=== PATIENT | female | born 1980 | race Two or more races ===

== ENCOUNTER 2024-02-09 15:26 | Emergency (ER) | payer MEDICAID, SELFPAY ==
[2024-02-09 16:04] VITALS: BP 159/94; PULSE 72; RESP 19; TEMP 36.9; O2SAT 95; BMI 53.5
--- NOTE | 2024-02-09 16:12 | XR_ITS ---
Examination: CT brain head without contrast. 2-D sagittal coronal reconstructions Date and time of exam:February 09, 2024 1633 hrs. Indications: Patient fell today with injury to the head, head pain CTDI: vol (mGy):54.4 DLP: (mGycm):1039 Technique: Multiple CT axial sections of the brain have been obtained, 5 mm slice thickness. Contrast has not been administered. 2-D sagittal, coronal reconstructions have been obtained Low dose protocols were performed. One or more of the following dose reduction techniques were used; automated exposure control, adjustment of the mA and/or KV according to patient size, use of iterative reconstruction technique. Findings: No significant ventricular enlargement. Intra-axial or extra-axial hemorrhage density is not seen. No mass effect or midline shift Basal cisterns are not remarkable. Fourth ventricle is midline. Cranial vault intact. Impression: Negative for acute hemorrhage, mass effect or midline shift
--- NOTE | 2024-02-09 16:12 | XR_ITS ---
Examination: CT cervical spine without contrast 2-D sagittal reconstructions 2-D coronal reconstructions 3-D reconstructions. Exam date and time:February 19, 2024 at 1633 hrs. Comparison November 29, 2023 Indications: Patient fell today with injury to the neck, neck pain CTDI:vol (mGy) 10.1 DLP: (mGycm) 199 Technique: Multiple 2 mm axial sections of the cervical spine have been obtained. The coronal and sagittal reconstructions have been obtained. 3-D reconstructions have been obtained. Low dose protocols were performed. One or more of the following dose reduction techniques were used; automated exposure control, adjustment of the mA and/or KV according to patient size, use of iterative reconstruction technique. Findings: Axial sections demonstrate intact base of the skull. C1 exhibit satisfactory relationship to the odontoid. No acute cervical vertebral body fracture seen. Alignment posterior spinous processes satisfactory. Impression: No acute cervical fracture.
--- NOTE | 2024-02-09 16:14 | PD.EDRME ---
Rapid Medical Screening Exam E Arrival date/time: 02/09/24 15:26 43-year-old female past medical history of hypertension presents emergency department complaining of head and neck pain status post ground-level fall with no LOC. Patient also reported 2 episodes of vomiting blood after fall. Patient denies any blood thinner use. Chief Complaint: Head Injury Time Seen by Provider: 02/09/24 16:10 Vital signs: Vital Signs Temperature 98.4 F 02/09/24 16:04 Pulse Rate 72 02/09/24 16:04 Respiratory Rate 19 02/09/24 16:04 Blood Pressure 159/94 H 02/09/24 16:04 Pulse Oximetry (%) 95 02/09/24 16:04 Oxygen Delivery Method Room Air 02/09/24 16:04
[2024-02-09 16:37] LABS: Basophils # (Auto) 0.1 Thou/mm3 (0.0-0.2); Basophils % (Auto) 0 % (0-2.5); Eosinophils # (Auto) 0.2 Thou/mm3 (0.0-0.5); Eosinophils % (Auto) 2 % (0-10); Hematocrit 38.1 % (36.0-46.0); Hemoglobin 12.3 g/dL (12.0-16.0); Immature Granulocytes % (Auto) 0 % (0-0); Immature Granulocytes Auto 0.03 Thou/mm3 (0.00-0.00); Lymphocytes # (Auto) 3.5 Thou/mm3 (1.0-4.8); Lymphocytes % (Auto) 29 % (10-50); Mean Corpuscular HGB Conc 32.3 g/dl (31.0-37.0); Mean Corpuscular Hemoglobin 24.6 pg (25.0-35.0); Mean Corpuscular Volume 76 fL (80-100); Monocytes # (Auto) 0.6 Thou/mm3 (0.0-0.8); Monocytes % (Auto) 5 % (0-12); Neutrophils # (Auto) 7.5 Thou/mm3 (1.8-7.7); Neutrophils % (Auto) 63 % (37-80); Nucleated Red Blood Cell % 0 /100 WBC (0); Platelet Count 283 Thou/mm3 (140-440); RDW Standard Deviation 42.3 fL (36.4-46.3); Red Blood Count 4.99 Miln/mm3 (4.00-5.20); White Blood Count 11.9 Thou/mm3 (3.6-11.0)
[2024-02-09 16:56] LABS: Partial Thromboplastin Time 24.6 Seconds (22.0-36.0); Prothrombin Time 11.3 Seconds (9.0-12.2)
[2024-02-09 17:06] LABS: Alanine Aminotransferase 66 U/L (10-49); Albumin, Serum 4.2 gm/dL (3.5-5.0); Albumin/Globulin Ratio 1.4 (1.2-2.2); Alkaline Phosphatase 136 U/L (46-116); Anion Gap 3 (7-16); Aspartate Amino Transferase 43 U/L (0-34); BUN/Creatinine Ratio 20 Ratio (12-20); Bilirubin,Total 0.3 mg/dL (0.3-1.2); Blood Urea Nitrogen 14 mg/dL (9-23); Calcium 9.5 mg/dL (8.3-10.6); Calcium (Corrected) 9.5 mg/dL (8.5-10.1); Carbon Dioxide 31.9 mMol/L (20.0-31.0); Chloride 102 mMol/L (98-107); Creatinine (Component) 0.7 mg/dL (0.6-1.3); Estimated Creatinine Clearance 123.4 mL/min (>60); Globulin 2.9 gm/dL (2.3-3.5); Glucose 173 mg/dL (74-106); Magnesium 1.9 mg/dL (1.6-2.6); Osmolality,Calculated 278 (275-295); Potassium 3.7 mMol/L (3.4-5.1); Sodium 137 mMol/L (136-145); Total Protein 7.1 gm/dL (5.7-8.2); Troponin I < 0.020 ng/mL (0.0-0.045); eGFR > 60 See Note
[2024-02-09 18:11] LABS: Amphetamine/Methamp Scrn,U Negative (Negative); Barbiturate Screen,Urine Negative (Negative); Benzodiazepines Screen,Urine Negative (Negative); Benzoylecgonine Screen, Ur Negative (Negative); Fentanyl Screen,Urine Negative (Negative); Opiate Screen,Urine Negative (Negative); THC Screen,Urine Negative (Negative)
--- NOTE | 2024-02-09 19:41 | EDNOTE_ITS ---
ED Head Injury RME/HPI General Chief complaint: Head Injury Stated complaint: HIT HEAD NOW HAS HEADACHE/VOMITING BLOOD Time Seen by Provider: 02/09/24 16:10 Arrival date/time: 02/09/24 15:26 RME / HPI RME / HPI Narrative: 43-year-old female past medical history of hypertension presents emergency department complaining of head and neck pain status post ground-level fall with no LOC. Incident happened 930 this morning. Patient also reported 2 episodes of vomiting blood after fall. Patient denies any blood thinner use. Denies any abdominal pain. Denies any other complaints no medication was taken prior travel. Patient is ambulatory. Related Data Home Medications ?Medication ?Instructions ?Recorded ?Confirmed amlodipine 5 mg tablet 5 mg PO QDAY 01/20/23 10/12/23 omeprazole 40 mg capsule,delayed 20 mg PO QDAY 01/20/23 10/12/23 release albuterol sulfate 90 mcg/actuation 2 puff inhalation Q4H PRN 06/26/23 10/12/23 aerosol inhaler (Ventolin HFA) Shortness Of Breath Or Wheezing aspirin 81 mg chewable tablet 81 mg PO QDAY 10/02/23 10/12/23 (Aspirin Childrens) furosemide 20 mg tablet (Lasix) 20 mg PO QDAY 10/02/23 10/12/23 nitroglycerin 0.3 mg sublingual 0.3 mg buccal [id number] PRN Chest 10/02/23 10/12/23 tablet (Nitrostat) Pain acetaminophen 500 mg tablet 500 mg PO Q6H PRN Pain 10/12/23 10/12/23 insulin lispro 100 unit/mL 40 unit subcut TID 10/12/23 10/12/23 subcutaneous pen Previous Rx's ?Medication ?Instructions ?Recorded ibuprofen 800 mg tablet 800 mg PO TID PRN pain #30 tabs 02/09/24 ondansetron HCl 4 mg tablet 4 mg PO TID PRN nausea and 02/09/24 vomiting 5 days #20 tabs Allergies Allergy/AdvReac Type Severity Reaction Status Date / Time cephalexin Allergy Severe Rash Verified 11/29/23 15:30 sulfamethoxazole Allergy Severe RASH TO Verified 11/29/23 15:30 BODY trimethoprim Allergy Severe RASH TO Verified 11/29/23 15:30 BODY Penicillins Allergy Intermediate Hives Verified 11/29/23 15:30 clindamycin Allergy Verified 02/09/24 15:30 Review of Systems Review of Systems Narrative Review of Systems: Review of system reviewed and within normal limits except mentioned in HPI ED Exam Narrative Physical exam: VITAL SIGNS: Reviewed. GENERAL APPEARANCE: Alert and interactive, follows commands, no acute distress, HEAD AND FACE: Non-traumatic. ENT: PERRL, pink conjunctivitis, eyelid no trauma, Mucous membrane moist. NECK: Supple, posterior neck tenderness, no nuchal rigidity. CHEST: No tenderness, no crepitus, no paradoxical movement, no retractions. LUNGS: Clear, well ventilated, symmetric, no rales, no wheezing, no ronchi, no stridor, good breath sounds bilaterally. HEART: Regular rate, regular rhythm, no murmur, no gallops. ABDOMEN: Soft, positive bowel sounds, nondistended, no guarding, nontender, no rebound, no masses, RECTAL: Deferred. GENITAL: Deferred. NEUROLOGICAL: Gross motor function intact sensory function intact, Appropriate for age. MUSCULOSKELETAL: low back nontender, full range of motion. EXTREMITIES: Nontender, full range of motion. SKIN: Color pink, dry, no rash, no lacerations, no abrasions, no contusions. LYMPHATICS: Deferred. Course Quality Measures none Orders Category Date Time Status CT cervical spine wo con Stat Exams 02/09/24 16:[address] head/brain wo con Stat Exams 02/09/24 16:12 Completed CBC Stat Lab 02/09/24 16:29 Completed Comprehensive Metabolic Panel Stat Lab 02/09/24 16:29 Completed Drug Screen,Urine Stat Lab 02/09/24 17:47 Completed Magnesium Stat Lab 02/09/24 16:29 Completed Partial Thromboplastin Time Stat Lab 02/09/24 16:29 Completed Prothrombin Time with INR Stat Lab 02/09/24 16:29 Completed Troponin I Stat Lab 02/09/24 16:29 Completed HYDROcodone/APAP 10/325 [[place] 10/325] Med 02/09/24 19:40 Once 1 tab PO X1 ONE Ondansetron Odt [Zofran Odt] Med 02/09/24 19:40 Once 4 mg PO X1 ONE Vital Signs Vital signs: Vital Signs Temperature 98.4 F 02/09/24 16:04 Pulse Rate 72 02/09/24 16:04 Respiratory Rate 19 02/09/24 16:04 Blood Pressure 159/94 H 02/09/24 16:04 Pulse Oximetry (%) 95 02/09/24 16:04 Oxygen Delivery Method Room Air 02/09/24 16:04 Head Injury MDM Narrative MDM Narrative:: CT scan of the head came back unremarkable CT scan of the neck came back unremarkable patient's laboratory workup also came back normal I did not notice any sign of anemia. Patient was given [place] and Zofran. No recurrence of vomiting noted in the emergency room. Patient data External records reviewed:: None Clinical information provided by:: patient Social determinants that could affect healthcare access:: none Patient has the following chronic illnesses:: Obesity How is presenting disease/condition affected by chronic disease/condition?: uneffected by Evaluation data The following diagnostics were reviewed and interpreted by me:: lab results and radiology exam(s) Lab and/or radiology exams considered but not ordered:: None Interpretation Summary: Laboratory workup all came back unremarkable. CT scan of the head came back unremarkable. CT scan of the neck came back unremarkable. Medications / Prescriptions Medications or Prescriptions considered but not ordered:: None Medication administrations:: Medication Administration History Hydrocodone Bitart/Acetaminophen (Hydrocodone/[place] 10/325 Tab) 1 tab PO X1 ONE Stop: 02/09/24 19:41 Ondansetron HCl (Ondansetron Odt 4 Mg Tabrap) 4 mg PO X1 ONE; Protocol Stop: 02/09/24 19:41 [place] and Zofran Consultations Consultation(s) initiated? (list below): No Diagnosis Differential diagnosis head injury: other (Fall, neck pain, vomiting) Most likely diagnosis given after review of the tests above:: Fall, neck pain, vomiting Admission Indicated Admission indicated?: not indicated Explain why admission is indicated or not indicated:: None Admission Request Was there a request for admission?: No Disposition Plan Disposition Plan: Discharge Discharge Attestation Discharge Attestation: The patient and all family members were given an opportunity to ask questions and understood the discharge instructions. Discharge instructions specifically effects, indications for sooner follow up or return to the emergency department, and the expected course of current diagnosis. Patient condition: Stable Discharge Plan Plan Patient Disposition: HOME (Self Care) Disposition Comment: Stable Prescriptions/Referrals Prescriptions/Med Rec: New ondansetron HCl 4 mg tablet 4 mg PO TID PRN (Reason: nausea and vomiting) 5 Days Qty: 20 0RF ibuprofen 800 mg tablet 800 mg PO TID PRN (Reason: pain) Qty: 30 0RF No Action amlodipine 5 mg tablet 5 mg PO QDAY Patient Comments: take 1 tablet by mouth once daily omeprazole 40 mg capsule,delayed release(DR/EC) 20 mg PO QDAY Patient Comments: take 1 capsule by mouth 30 MINUTES PRIOR TO BREAKFAST once daily albuterol sulfate [Ventolin HFA] 90 mcg/actuation Hfa Aerosol Inhaler 2 puff INHALATION Q4H PRN (Reason: Shortness Of Breath Or Wheezing) nitroglycerin [Nitrostat] 0.3 mg Tablet, Sublingual 0.3 mg BUCCAL [id number] PRN (Reason: Chest Pain) aspirin [Aspirin Childrens] 81 mg Tablet,Chewable 81 mg PO QDAY furosemide [Lasix] 20 mg Tablet 20 mg PO QDAY acetaminophen 500 mg Tablet 500 mg PO Q6H PRN (Reason: Pain) insulin lispro 100 unit/mL Insulin Pen 40 unit SUBCUT TID Referrals: Сергей Loabto MD [Primary Care Provider] - In 1 week Problem List Clinical Impression: Fall, Neck pain, Vomiting Patient/Caregiver Discharge Instructions Discharge Activity: activity as tolerated Education Materials: ED Diet for Vomiting or ... Additional Instructions: Thank you for the opportunity for serving you today. You are stable for discharged . You are advised to: Follow-up with your PCP in 1 to 2 days Return to ED for worsening of symptoms Increase oral fluids Take medication as prescribed Print Language: Kenyan Stand Alone Forms: Kami Award Info., Patient Portal Info Letter YANDEL/MARQUIS Supervising Physician MANUEL Supervising Physician: MD Darya
[2024-02-09 19:59] VITALS: BP 159/84; PULSE 87; RESP 18; TEMP 36.8; O2SAT 97
[2024-02-09] MEDS: ONDANSETRON ODT 4 MG TABRAP PO (20:02)
[2024-02-09] MEDS: HYDROcodone/APAP 10/325 TAB PO (20:03)
== END 2024-02-09 20:12 | disposition home or self-care (01) ==
PROVIDERS: Emergency Provider Emergency Medicine; PCP Family Medicine
DX: S09.90XA Unspecified injury of head, initial encounter (principal); S19.9XXA Unspecified injury of neck, initial encounter; R11.10 Vomiting, unspecified; W18.30XA Fall on same level, unspecified, initial encounter
CPT/HCPCS: 36415; 70450; 72125; 80053; 80307; 83735; 84484; 85025; 85610; 85730; 99284; Q0162; A9270

== ENCOUNTER 2024-05-12 10:28 | Emergency (ER) | payer MEDICAID, SELFPAY ==
[2024-05-12 10:29] VITALS: BMI 55.5
--- NOTE | 2024-05-12 10:33 | EKG_ITS ---
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
[2024-05-12 10:56] VITALS: BP 168/81; PULSE 80; RESP 18; TEMP 36.8; O2SAT 99
--- NOTE | 2024-05-12 11:16 | PD.EDRME ---
Rapid Medical Screening Exam E Arrival date/time: 05/12/24 10:28 43-year-old female insulin-dependent diabetic presents to the emergency department today with complaints of generalized fatigue and elevated blood sugar Chief Complaint: General Adult/Misc Complain Vital signs: Vital Signs Temperature 98.2 F 05/12/24 10:56 Pulse Rate 80 05/12/24 10:56 Respiratory Rate 18 05/12/24 10:56 Blood Pressure 168/81 H 05/12/24 10:56 Pulse Oximetry (%) 99 05/12/24 10:56 Oxygen Delivery Method Room Air 05/12/24 10:56
[2024-05-12 11:39] LABS: Collection Type, Urine Clean Catch; WBC,Urine 0 /hpf (0-5)
[2024-05-12 11:40] LABS: Base Excess, Venous 4 (-3-3); O2 Saturation, Venous 88 % (96-97); PCO2, Venous 45 mmHg (36-56); PO2, Venous 50 mmHg (15-58); pH, Venous 7.42 (7.33-7.66)
[2024-05-12 11:44] LABS: Basophils # (Auto) 0.1 Thou/mm3 (0.0-0.2); Basophils % (Auto) 1 % (0-2.5); Eosinophils # (Auto) 0.2 Thou/mm3 (0.0-0.5); Eosinophils % (Auto) 2 % (0-10); Hemoglobin 12.5 g/dL (12.0-16.0); Immature Granulocytes % (Auto) 1 % (0-0); Immature Granulocytes Auto 0.05 Thou/mm3 (0.00-0.00); Lymphocytes # (Auto) 2.4 Thou/mm3 (1.0-4.8); Lymphocytes % (Auto) 28 % (10-50); Mean Corpuscular HGB Conc 32.1 g/dl (31.0-37.0); Mean Corpuscular Hemoglobin 24.6 pg (25.0-35.0); Mean Corpuscular Volume 77 fL (80-100); Monocytes # (Auto) 0.4 Thou/mm3 (0.0-0.8); Monocytes % (Auto) 5 % (0-12); Neutrophils # (Auto) 5.7 Thou/mm3 (1.8-7.7); Neutrophils % (Auto) 64 % (37-80); Nucleated Red Blood Cell % 0 /100 WBC (0); Platelet Count 233 Thou/mm3 (140-440); Red Blood Count 5.09 Miln/mm3 (4.00-5.20); White Blood Count 8.8 Thou/mm3 (3.6-11.0)
[2024-05-12 12:13] LABS: Alanine Aminotransferase 115 U/L (10-49); Albumin, Serum 4.2 gm/dL (3.5-5.0); Albumin/Globulin Ratio 1.4 (1.2-2.2); Alkaline Phosphatase 171 U/L (46-116); Anion Gap 7 (7-16); Aspartate Amino Transferase 75 U/L (0-34); BUN/Creatinine Ratio 14 Ratio (12-20); Bilirubin,Total 0.3 mg/dL (0.3-1.2); Blood Urea Nitrogen 11 mg/dL (9-23); Calcium 9.2 mg/dL (8.3-10.6); Calcium (Corrected) 9.2 mg/dL (8.5-10.1); Carbon Dioxide 28.7 mMol/L (20.0-31.0); Chloride 95 mMol/L (98-107); Creatinine (Component) 0.8 mg/dL (0.6-1.3); Estimated Creatinine Clearance 106.3 mL/min (>60); Globulin 2.9 gm/dL (2.3-3.5); Glucose Estimated Average 252 mg/dL (80-131); Hemoglobin A1C 10.4 % Hgb (4.8-6.0); Osmolality,Calculated 290 (275-295); Sodium 131 mMol/L (136-145); Total Protein 7.1 gm/dL (5.7-8.2); Troponin I < 0.020 ng/mL (0.0-0.045); eGFR > 60 See Note
[2024-05-12 12:19] LABS: HCG Qualitative,Urine Negative
[2024-05-12 12:26] LABS: Bacteria,Urine Rare; Bilirubin,Urine Negative (Negative); Blood,Urine Negative (Negative); Budding Yeast,Urine Present; Clarity,Urine Clear (Clear/Hazy); Color,Urine Colorless (Lt Yel-Yel); Culture Indicated,Urine Not Indicated; Glucose, Urine 4+ (Negative); Ketones,Urine Negative (Negative); Leukocyte Esterase,Urine Negative (Negative); Nitrite,Urine Negative (Negative); PH,Urine 6.5 (5.0-7.0); Protein,Urine Negative (Neg - Trace); RBC,Urine 2 /hpf (0-3); Specific Gravity,Urine 1.037 (1.001-1.035); Squamous Epithelial Cell,Urine 2 /hpf (0-5); Urobilinogen,Urine Negative mg/dL (0.0-1.0)
[2024-05-12 12:29] LABS: Glucose 610 mg/dL (74-106)
--- NOTE | 2024-05-12 14:46 | PD.EDADULT ---
ED General RME/HPI General Chief complaint: General Adult/Misc Complain Stated complaint: HIGH BLOOD SUGAR x 4 DAYS, OVER 600 Time Seen by Provider: 05/12/24 14:40 Arrival date/time: 05/12/24 10:28 43 year old female present to Emergency room with c/o of elevated blood glucose for 4 days. pt report > 600. pt report been taking her insulin and exercising the past 1 month but increase stressor and not able to sleep the past few days. SEVERITY: Symptoms are described as being severe with limitations on activities of daily living CONTEXT: The patient is unable to identify any inciting events. DURATION/TIMING: The symptoms started approximately 4 days ago and have been constant since and have been progressive getting worse. ASSOCIATED SYMPTOMS: fatigue , chest pain, nausea,vomiting (last night) MODIFYING FACTORS: The patient is unable to identify any alleviating or aggravating symptoms. PERTINENT ROS: no fevers, no cough, no pleuritic pain, no ripping or tearing sensations, denies any lower extremity edema and no unilateral swelling, no shortness of breath no nausea,diarrhea, no dizziness/headache no rash no loc/syncope episode no abd/back pain no dsyuria,urgency,frequency REVIEW OF SYSTEMS: See History of Present Illness - with the exception of those mentioned in the history of present illness, all other systems reviewed and reported as negative GENERAL: In general the patient is awake, interactive, in an emergency department gurney. HEAD/EYES/EARS/NOSE/THROAT: normo-cephalic, atraumatic, mucus membranes are moist, anicteric, palpebral conjunctiva is pink, trachea is midline. CARDIOVASCULAR: regular rate and regular rhythm, no murmurs, heart sounds are not distant, strong pulses in all four extremities that are equal and symmetric bilateral upper and lower extremities, normal capillary refill. CHEST/PULMONARY: normal chest rise and fall, good air movement, clear to auscultation bilaterally, normal inspiratory to expiratory ratios without evidence of respiratory distress. NECK: No midline/Paraspinal tenderness, no step off ROM/Strenght intact No Kernig and bruzinski sign. No trauma ABDOMEN: soft, not tender, no masses appreciated BACK: normal range of motion without pain. NEUROLOGICAL: cranio-facial features are symmetric, moves all four extremities equally without obvious limitations or weakness. EXTREMITY: no tenderness to palpation over the long bones or large joints of the bilateral upper and lower extremities, no joint swelling, no joint erythema, no signs of trauma, no unilateral leg swelling and no peripheral edema. SKIN: warm, dry, well-perfused, no jaundice, no rash, no telangiectasias or petechia. PSYCH: calm, cooperative, no evidence of psychosis or agitation RME / HPI RME / HPI narrative: 05/12/24 10:28 43-year-old female insulin-dependent diabetic presents to the emergency department today with complaints of generalized fatigue and elevated blood sugar Related Data Home Medications ?Medication ?Instructions ?Recorded ?Confirmed amlodipine 5 mg tablet 5 mg PO QDAY 01/20/23 10/12/23 omeprazole 40 mg capsule,delayed 20 mg PO QDAY 01/20/23 10/12/23 release albuterol sulfate 90 mcg/actuation 2 puff inhalation Q4H PRN 06/26/23 10/12/23 aerosol inhaler (Ventolin HFA) Shortness Of Breath Or Wheezing aspirin 81 mg chewable tablet 81 mg PO QDAY 10/02/23 10/12/23 (Aspirin Childrens) furosemide 20 mg tablet (Lasix) 20 mg PO QDAY 10/02/23 10/12/23 nitroglycerin 0.3 mg sublingual 0.3 mg buccal [id number] PRN Chest 10/02/23 10/12/23 tablet (Nitrostat) Pain acetaminophen 500 mg tablet 500 mg PO Q6H PRN Pain 10/12/23 10/12/23 insulin lispro 100 unit/mL 40 unit subcut TID 10/12/23 10/12/23 subcutaneous pen Previous Rx's ?Medication ?Instructions ?Recorded ibuprofen 800 mg tablet 800 mg PO TID PRN pain #30 tabs 02/09/24 Allergies Allergy/AdvReac Type Severity Reaction Status Date / Time cephalexin Allergy Severe Rash Verified 05/12/24 10:32 clindamycin Allergy Severe Hives Verified 05/12/24 10:32 sulfamethoxazole Allergy Severe RASH TO Verified 05/12/24 10:32 BODY trimethoprim Allergy Severe RASH TO Verified 05/12/24 10:32 BODY Penicillins Allergy Intermediate Hives Verified 05/12/24 10:32 Course Course Course Narrative: pt is feeling better, but was told by nurse patient been drinking alot of suger drinks (sports drink) blood glucose has been trending downward while in ED. lastest was 349 Blood glucose. feels better, nurse given education on what cause elevated blood glucose. Patient?s presentation most consistent with hyperglycemic state?WITHOUT?evidence of DKA. Given Exam, History, and Workup I have low suspicion for an emergent precipitating factor of this hyperglycemic state such as atypical [place], acute abdomen, or other serious bacterial illness. Patient is Type 2 Diabetic with changes in medication regimen/adherence. Findings: Patient without AGAP or significant ketones in urine to suggest DKA Interventions: IVF bolus, insulin Re-evaluation: Patient?s serum glucose downtrended significantly with stable electrolytes and no anion gap at this time. Disposition: Discharge home with appropriate insulin regimen and prompt PCP follow up instructions. Quality Measures none Orders Category Date Time Status Bedside Influenza A&B Antigen Test NOW Care 05/12/24 15:10 Completed EKG (ED ONLY) *Do not use* NOW Care 05/12/24 10:33 Completed EKG (ED Only) Stat Exams 05/12/24 10:33 Draft A1C [Glycohemoglobin w (eAG)] Stat Lab 05/12/24 11:32 Completed Beta Hydroxybutyrate Stat Lab 05/12/24 11:32 Completed CBC Stat Lab 05/12/24 11:32 Completed Comprehensive Metabolic Panel Stat Lab 05/12/24 11:32 Completed HCG Qualitative,Urine Stat Lab 05/12/24 11:29 Completed Troponin I Stat Lab 05/12/24 11:32 Completed UA, C/S IF [Urinalysis, C/S if Indicated] Stat Lab 05/12/24 11:29 Completed VBG [Venous Blood Gas] Stat Lab 05/12/24 11:32 Completed Insulin Glargine Inj [Lantus Inj] Med 05/12/24 14:49 Discontinued 10 unit SC X1 ONE Sodium Chloride 0.9% 1000 ml [Ns] 1,000 ml Med 05/12/24 14:37 Discontinued IV 999 mls/hr Sodium Chloride 0.9% 1000 ml [Ns] 1,000 ml Med 05/12/24 15:00 Discontinued IV 999 mls/hr Sodium Chloride 0.9% 1000 ml [Ns] 1,000 ml Med 05/12/24 18:17 Discontinued IV 999 mls/hr Vital Signs Vital signs: Vital Signs Temperature 98.2 F 05/12/24 10:56 Pulse Rate 80 05/12/24 10:56 Respiratory Rate 18 05/12/24 10:56 Blood Pressure 168/81 H 05/12/24 10:56 Pulse Oximetry (%) 99 05/12/24 10:56 Oxygen Delivery Method Room Air 05/12/24 10:56 Procedures -ED EKG Interpretation #1: Date of EK05/12/24 Time of EK:48 Rate: 72 Interpretation: Reviewed by me EKG Impression: Normal sinus rhythm, No acute ST-T changes, No ectopy, No ischemic changes and Normal QRS MDM Patient data External records reviewed:: [facility] previous records Clinical information provided by:: patient Social determinants that could affect healthcare access:: none Patient has the following chronic illnesses:: DM How is presenting disease/condition affected by chronic disease/condition?: exacerbated by Evaluation data The following diagnostics were reviewed and interpreted by me:: lab results, radiology exam(s) and EKG tracing(s) Lab and/or radiology exams considered but not ordered:: none Interpretation Summary: cbc wnl beta: wnl cmp: liver enzyme elevated. BG 600 trop wnl urine no infection Medications Medications considered but not ordered:: none Medication administrations:: Medication Administration History Discontinued Medications Sodium Chloride (Ns) 1,000 mls @ 999 mls/hr IV .Q1H1M ONE Stop: 05/12/24 15:37 Last Infusion: 05/12/24 16:30 Dose: Infused Documented By: Admin: 05/12/24 15:14 Dose: 999 mls/hr Documented By: NIGHAT Sodium Chloride (Ns) 1,000 mls @ 999 mls/hr IV .Q1H1M ONE Stop: 05/12/24 16:00 Last Infusion: 05/12/24 16:30 Dose: Infused Documented By: Admin: 05/12/24 15:19 Dose: 999 mls/hr Documented By: NIGHAT Sodium Chloride (Ns) 1,000 mls @ 999 mls/hr IV .Q1H1M ONE Stop: 05/12/24 19:17 Last Admin: 05/12/24 18:50 Dose: 999 mls/hr Documented By: NIGHAT Insulin Glargine (Insulin Glargine (Lantus) 5 Unit/0.05 Ml (Per 5 Units)) 10 unit SC X1 ONE Stop: 05/12/24 14:50 Last Admin: 05/12/24 15:20 Dose: 10 unit Documented By: MP Co-signed By: TM none Consultations Consultation(s) initiated? (list below): No Diagnosis Differential Diagnosis ED Complaint MDM: dka, hyperglycemia, dehydration, mi/nstemi, kidney infection/UTI/injury Most likely diagnosis given after review of the tests above:: hyperglycemia Admission Indicated Admission indicated?: not indicated Explain why admission is indicated or not indicated:: n/a Admission Request Was there a request for admission?: No Disposition Plan Disposition Plan: Discharge Discharge Attestation Discharge Attestation: The patient and all family members were given an opportunity to ask questions and understood the discharge instructions. Discharge instructions specifically effects, indications for sooner follow up or return to the emergency department, and the expected course of current diagnosis. Patient condition: Stable Medical Decision Making Differential Diagnosis Differential Diagnosis: dka, hyperglycemia, dehydration, mi/nstemi, kidney infection/UTI/injury Lab Data 05/12/24 11:32 05/12/24 11:32 Labs: Lab Results 05/12/24 05/12/24 Range/Units 11:29 11:32 WBC 8.8 (3.6-11.0) Thou/mm3 RBC 5.09 (4.00-5.20) Miln/mm3 Hgb 12.5 (12.0-16.0) g/dL Hct 39.0 (36.0-46.0) % MCV 77 L (80-100) fL MCH 24.6 L (25.0-35.0) pg MCHC 32.1 (31.0-37.0) g/dl RDW Std Deviation 44.0 (36.4-46.3) fL Plt Count 233 (140-440) Thou/mm3 Neut % (Auto) 64 (37-80) % Lymph % (Auto) 28 (10-50) % [place] % (Auto) 5 (0-12) % Eos % (Auto) 2 (0-10) % Baso % (Auto) 1 (0-2.5) % Neut # (Auto) 5.7 (1.8-7.7) Thou/mm3 Lymph # (Auto) 2.4 (1.0-4.8) Thou/mm3 [place] # (Auto) 0.4 (0.0-0.8) Thou/mm3 Eos # (Auto) 0.2 (0.0-0.5) Thou/mm3 Baso # (Auto) 0.1 (0.0-0.2) Thou/mm3 Immature Gran # (Auto) 0.05 H (0.00-0.00) Thou/mm3 Absolute Nucleated RBC 0.00 (0.00-0.00) Thou/mm3 Immature Gran % 1 H (0-0) % Nucleated RBC % 0 (0) /100 WBC VBG pH 7.42 (7.33-7.66) VBG pCO2 45 (36-56) mmHg VBG pO2 50 (15-58) mmHg VBG O2 Sat (Vesta) 88 L (96-97) % VBG Base Excess 4 H (-3-3) Sodium 131 L (136-145) mMol/L Potassium 4.0 (3.4-5.1) mMol/L Chloride 95 L (98-107) mMol/L Carbon Dioxide 28.7 (20.0-31.0) mMol/L Anion Gap 7 (7-16) BUN 11 (9-23) mg/dL Creatinine 0.8 (0.6-1.3) mg/dL Estim Creat Clear Calc 106.3 (>60) mL/min eGFR > 60 (60 - ) See Note BUN/Creatinine Ratio 14 (12-20) Ratio Glucose 610 H* (74-106) mg/dL Estimated Ave Glu mg/dL 252 H (80-131) mg/dL Hemoglobin A1c 10.4 H (4.8-6.0) % Hgb Calculated Osmolality 290 (275-295) Calcium 9.2 (8.3-10.6) mg/dL Corrected Calcium 9.2 (8.5-10.1) mg/dL Total Bilirubin 0.3 (0.3-1.2) mg/dL AST 75 H (0-34) U/L ALT 115 H (10-49) U/L Alkaline Phosphatase 171 H (46-116) U/L Troponin I < 0.020 (0.0-0.045) ng/mL Total Protein 7.1 (5.7-8.2) gm/dL Albumin 4.2 (3.5-5.0) gm/dL Globulin 2.9 (2.3-3.5) gm/dL Albumin/Globulin Ratio 1.4 (1.2-2.2) Beta-Hydroxybutyrate/Acetoacetate 0.0 (<0.6) mmol/L Ur Collection Type Clean Catch Urine Color Colorless A (Lt Yel-Yel) Urine Clarity Clear (Clear/Hazy) Urine pH 6.5 (5.0-7.0) Ur Specific [place] 1.037 H (1.001-1.035) Urine Protein Negative (Neg - Trace) Urine Glucose (UA) 4+ A (Negative) Urine Ketones Negative (Negative) Urine Blood Negative (Negative) Urine Nitrite Negative (Negative) Urine Bilirubin Negative (Negative) Urine Urobilinogen (Auto) Negative (0.0-1.0) mg/dL Ur Leukocyte Esterase Negative (Negative) Urine RBC 2 (0-3) /hpf Urine WBC 0 (0-5) /hpf Ur Squamous Epith Cells 2 (0-5) /hpf Urine Bacteria Rare (None) Urine Yeast (Budding) Present A (None) Ur Culture Indicated? Not Indicated Urine HCG, Qual Negative Discharge Plan Plan Patient Disposition: HOME (Self Care) Health Concerns: Follow up with PMD as directed Return to ED if symptoms worsen Prescriptions/Referrals Prescriptions/Med Rec: No Action amlodipine 5 mg tablet 5 mg PO QDAY Patient Comments: take 1 tablet by mouth once daily omeprazole 40 mg capsule,delayed release(DR/EC) 20 mg PO QDAY Patient Comments: take 1 capsule by mouth 30 MINUTES PRIOR TO BREAKFAST once daily albuterol sulfate [Ventolin HFA] 90 mcg/actuation Hfa Aerosol Inhaler 2 puff INHALATION Q4H PRN (Reason: Shortness Of Breath Or Wheezing) nitroglycerin [Nitrostat] 0.3 mg Tablet, Sublingual 0.3 mg BUCCAL [id number] PRN (Reason: Chest Pain) aspirin [Aspirin Childrens] 81 mg Tablet,Chewable 81 mg PO QDAY furosemide [Lasix] 20 mg Tablet 20 mg PO QDAY acetaminophen 500 mg Tablet 500 mg PO Q6H PRN (Reason: Pain) insulin lispro 100 unit/mL Insulin Pen 40 unit SUBCUT TID ibuprofen 800 mg tablet 800 mg PO TID PRN (Reason: pain) Qty: 30 0RF Referrals: Сергей Lobato MD [Primary Care Provider] - In 1 week Problem List Clinical Impression: Hyperglycemia Patient/Caregiver Discharge Instructions Education Materials: High Blood Sugar (Hyperglycemia), ED Diabetes with High Blood Sugar Print Language: German Stand Alone Forms: Kami Award Info., Patient Portal Info Letter
[2024-05-12] MEDS: SODIUM CHLORIDE 0.9% 1000 ML 1,000 ML 999 ML IV ×3 (15:14→18:50)
[2024-05-12] MEDS: INSULIN GLARGINE (Lantus) 5 UNIT/0.05 ML (PER 5 UNITS) 10 UNIT SC (15:20)
[2024-05-12 15:26] VITALS: BP 166/107; PULSE 73; RESP 18; O2SAT 97
[2024-05-12 18:32] VITALS: BP 166/83; PULSE 74; RESP 18; TEMP 37; O2SAT 97
== END 2024-05-12 20:27 | disposition home or self-care (01) ==
PROVIDERS: Nurse Practitioner Primary Care; Emergency Provider Emergency Medicine; PCP Family Medicine
DX: E11.65 Type 2 diabetes mellitus with hyperglycemia (principal); Z79.4 Long term (current) use of insulin
CPT/HCPCS: 36415; 80053; 81001; 81025; 82010; 82803; 83036; 84484; 85025; 87400; 93005; 96360; 96372; 99284; J1815; J7030

== ENCOUNTER 2024-06-18 11:46 | Emergency (ER) | payer MEDICAID, SELFPAY ==
--- NOTE | 2024-06-18 11:53 | EKG_ITS ---
[facility] Test Date: 2024-06-18 Pat Name: ROSALIO GARCIA Department: Room: - Gender: Female Direct Marketing Specialist: : 1980 Requested By: Channing Robles (RUTHIE) Order Number: [id number] Reading MD: Channing Robles (STRINGING MACHINE TENDER) Measurements Intervals [place] Rate: 85 P: 21 [place]: 144 QRS: -1 QRSD: 81 T: 74 QT: 361 QTc: 430 Interpretive Statements SINUS RHYTHM NONSPECIFIC T-WAVE ABNORMALITY Compared to ECG 05/12/2024 10:59:31 T-wave abnormality now present /store/S0/[id number]/ecg/[id number].pdf
[2024-06-18 12:02] VITALS: BP 163/97; PULSE 91; RESP 18; TEMP 36.9; O2SAT 99; BMI 56.5
--- NOTE | 2024-06-18 12:11 | XR_ITS ---
Examination: PA lateral chest 2 views TECHNIQUE: Upright PA lateral chest 2 views Exam date and time: June 18, 2024 1231 hours INDICATIONS: Chest pain today. FINDINGS: Normal heart size Lungs are clear. The osseous structures are intact IMPRESSION: No active disease
--- NOTE | 2024-06-18 12:13 | PD.EDRME ---
Rapid Medical Screening Exam RME Arrival date/time: 06/18/24 11:46 44-year-old female with diabetes presents with concerns for elevated blood sugar patient reports that her machine at home was reading error patient reports her blood sugar monitor measures up to 600 at this time patient had an blood sugar check by fingerstick and is 587 Chief Complaint: Shortness of Breath/Dyspnea Time Seen by Provider: 06/18/24 11:53 Vital signs: Vital Signs Temperature 98.5 F 06/18/24 12:02 Pulse Rate 91 06/18/24 12:02 Respiratory Rate 18 06/18/24 12:02 Blood Pressure 163/97 H 06/18/24 12:02 Pulse Oximetry (%) 99 06/18/24 12:02 Oxygen Delivery Method Room Air 06/18/24 12:02
[2024-06-18 12:32] LABS: Base Excess, Venous 7 (-3-3); O2 Saturation, Venous 94 % (96-97); PCO2, Venous 39 mmHg (36-56); PO2, Venous 62 mmHg (15-58)
[2024-06-18 12:35] LABS: Basophils # (Auto) 0.1 Thou/mm3 (0.0-0.2); Basophils % (Auto) 1 % (0-2.5); Beta Hydroxybutyrate 0.1 mmol/L (<0.6); Eosinophils # (Auto) 0.1 Thou/mm3 (0.0-0.5); Eosinophils % (Auto) 1 % (0-10); Hematocrit 43.1 % (36.0-46.0); Immature Granulocytes % (Auto) 0 % (0-0); Immature Granulocytes Auto 0.03 Thou/mm3 (0.00-0.00); Lymphocytes # (Auto) 2.5 Thou/mm3 (1.0-4.8); Lymphocytes % (Auto) 24 % (10-50); Mean Corpuscular HGB Conc 32.5 g/dl (31.0-37.0); Mean Corpuscular Hemoglobin 24.7 pg (25.0-35.0); Mean Corpuscular Volume 76 fL (80-100); Monocytes # (Auto) 0.7 Thou/mm3 (0.0-0.8); Monocytes % (Auto) 6 % (0-12); Neutrophils # (Auto) 6.8 Thou/mm3 (1.8-7.7); Neutrophils % (Auto) 67 % (37-80); Nucleated Red Blood Cell % 0 /100 WBC (0); Platelet Count 285 Thou/mm3 (140-440); RDW Standard Deviation 42.5 fL (36.4-46.3); Red Blood Count 5.67 Miln/mm3 (4.00-5.20); White Blood Count 10.1 Thou/mm3 (3.6-11.0)
[2024-06-18 12:49] LABS: Partial Thromboplastin Time 25.6 Seconds (22.0-36.0); Prothrombin Time 11.4 Seconds (9.0-12.2)
[2024-06-18 13:01] LABS: Glucose Estimated Average 303 mg/dL (80-131); Hemoglobin A1C 12.2 % Hgb (4.8-6.0)
[2024-06-18 13:09] LABS: Collection Type, Urine Clean Catch
[2024-06-18 13:12] LABS: Alanine Aminotransferase 116 U/L (10-49); Albumin, Serum 4.5 gm/dL (3.5-5.0); Albumin/Globulin Ratio 1.4 (1.2-2.2); Alkaline Phosphatase 197 U/L (46-116); Anion Gap 11 (7-16); Aspartate Amino Transferase 68 U/L (0-34); BUN/Creatinine Ratio 8 Ratio (12-20); Bilirubin,Total 0.4 mg/dL (0.3-1.2); Blood Urea Nitrogen 8 mg/dL (9-23); Carbon Dioxide 31.3 mMol/L (20.0-31.0); Chloride 91 mMol/L (98-107); Estimated Creatinine Clearance 85.1 mL/min (>60); Globulin 3.3 gm/dL (2.3-3.5); Lipase 52 U/L (12-53); Magnesium 1.7 mg/dL (1.6-2.6); Osmolality,Calculated 291 (275-295); Potassium 3.8 mMol/L (3.4-5.1); Sodium 133 mMol/L (136-145); Total Protein 7.8 gm/dL (5.7-8.2); Troponin I < 0.020 ng/mL (0.0-0.045); eGFR > 60 See Note
[2024-06-18 13:14] LABS: Glucose 590 mg/dL (74-106)
--- NOTE | 2024-06-18 13:15 | PC.NURSE ---
CALL FROM NICHOLAS IN THE LAB FOR CRITICAL BLOOD GLUCOSE OF 590. AWARE.
[2024-06-18 13:18] LABS: B-Type Natriuretic Peptide < 20 pg/mL (0-100)
[2024-06-18 13:26] LABS: Amphetamine/Methamp Scrn,U Negative (Negative); Barbiturate Screen,Urine Negative (Negative); Benzodiazepines Screen,Urine Negative (Negative); Benzoylecgonine Screen, Ur Negative (Negative); Fentanyl Screen,Urine Negative (Negative); Opiate Screen,Urine Negative (Negative); THC Screen,Urine Negative (Negative)
[2024-06-18 13:27] LABS: HCG Qualitative,Urine Negative
[2024-06-18 13:28] LABS: Bacteria,Urine 1+; Bilirubin,Urine Negative (Negative); Blood,Urine Negative (Negative); Clarity,Urine Clear (Clear/Hazy); Color,Urine Colorless (Lt Yel-Yel); Glucose, Urine 4+ (Negative); Ketones,Urine Negative (Negative); Leukocyte Esterase,Urine Negative (Negative); Nitrite,Urine Negative (Negative); PH,Urine 6.5 (5.0-7.0); Protein,Urine Negative (Neg - Trace); RBC,Urine 17 /hpf (0-3); Specific Gravity,Urine 1.041 (1.001-1.035); Squamous Epithelial Cell,Urine 4 /hpf (0-5); Urobilinogen,Urine Negative mg/dL (0.0-1.0); WBC,Urine 1 /hpf (0-5)
[2024-06-18] MEDS: INSULIN HUM REGULAR 1 UNIT/0.01 ML (PER UNIT) 12 UNIT SC (15:44)
[2024-06-18] MEDS: ONDANSETRON ODT 4 MG TABRAP PO (15:44)
[2024-06-18 15:46] LABS: Lactate (Lactic Acid) 2.5 mMol/L (0.4-2.0)
[2024-06-18 15:48] LABS: Basophils # (Auto) 0.1 Thou/mm3 (0.0-0.2); Basophils % (Auto) 1 % (0-2.5); Eosinophils # (Auto) 0.2 Thou/mm3 (0.0-0.5); Eosinophils % (Auto) 2 % (0-10); Hematocrit 41.4 % (36.0-46.0); Hemoglobin 13.6 g/dL (12.0-16.0); Immature Granulocytes % (Auto) 0 % (0-0); Immature Granulocytes Auto 0.04 Thou/mm3 (0.00-0.00); Lymphocytes # (Auto) 2.9 Thou/mm3 (1.0-4.8); Lymphocytes % (Auto) 25 % (10-50); Mean Corpuscular HGB Conc 32.9 g/dl (31.0-37.0); Mean Corpuscular Hemoglobin 24.8 pg (25.0-35.0); Mean Corpuscular Volume 76 fL (80-100); Monocytes # (Auto) 0.9 Thou/mm3 (0.0-0.8); Monocytes % (Auto) 8 % (0-12); Neutrophils # (Auto) 7.7 Thou/mm3 (1.8-7.7); Neutrophils % (Auto) 65 % (37-80); Nucleated Red Blood Cell % 0 /100 WBC (0); Platelet Count 255 Thou/mm3 (140-440); RDW Standard Deviation 42.5 fL (36.4-46.3); Red Blood Count 5.48 Miln/mm3 (4.00-5.20); White Blood Count 11.9 Thou/mm3 (3.6-11.0)
[2024-06-18 15:49] LABS: Beta Hydroxybutyrate 0.1 mmol/L (<0.6)
[2024-06-18 15:59] LABS: Glucose Estimated Average 298 mg/dL (80-131)
[2024-06-18 16:07] LABS: Allen Test Not Performed; Base Excess 7 (-3-3); HCO3 32 mEq/L (20-26); Inspired Oxygen, FIO2 21 %; O2 Saturation 97 % (91-98); PCO2 50 mmHg (32.0-48.0); PO2 83 mmHg (83-108); Puncture Site Left Radial; pH, Arterial 7.42 (7.35-7.45)
[2024-06-18 16:20] LABS: Magnesium 1.7 mg/dL (1.6-2.6); Phosphorous 4.2 mg/dL (2.4-5.1)
[2024-06-18 17:16] LABS: Collection Type, Urine Clean Catch
[2024-06-18 17:31] LABS: Bilirubin,Urine Negative (Negative); Blood,Urine Negative (Negative); Clarity,Urine Clear (Clear/Hazy); Color,Urine Colorless (Lt Yel-Yel); Glucose, Urine 4+ (Negative); Ketones,Urine Negative (Negative); Leukocyte Esterase,Urine Negative (Negative); Nitrite,Urine Negative (Negative); PH,Urine 5.5 (5.0-7.0); Protein,Urine Negative (Neg - Trace); RBC,Urine 15 /hpf (0-3); Specific Gravity,Urine 1.041 (1.001-1.035); Squamous Epithelial Cell,Urine 2 /hpf (0-5); Urobilinogen,Urine Negative mg/dL (0.0-1.0); WBC,Urine 1 /hpf (0-5)
[2024-06-18 18:44] LABS: Reflex Lactate? Y
[2024-06-18] MEDS: RINGERS LACTATED 1000 ML 1,000 ML IV (20:22)
--- NOTE | 2024-06-18 21:53 | EDNOTE_ITS ---
ED SOB =RME/HPI General Chief Complaint: Shortness of Breath/Dyspnea Stated Complaint: BS HIGH, PT'S MACHINE READS HIGH, SOB, ABD PAIN Time Seen by Provider: 06/18/24 11:53 Source: patient Arrival date/time: 06/18/24 11:46 Mode of arrival: ambulatory Limitations: no limitations RME / HPI RME / HPI Narrative: 06/18/24 11:46 44-year-old female with diabetes presents with concerns for elevated blood sugar patient reports that her machine at home was reading error patient reports her blood sugar monitor measures up to 600 at this time patient had an blood sugar check by fingerstick and is 587. Dr. Camarena?s Main ED Evaluation: 44-year-old female with a history of T2DM presents with concerns of elevated blood glucose levels. She reports that her home glucose monitor displayed an error message, which she states occurs when readings exceed 600 mg/dL, the device?s upper limit. Upon arrival, a fingerstick blood glucose was obtained, revealing a level of 587 mg/dL. The patient denies associated symptoms such as altered mental status, nausea, vomiting, abdominal pain, or signs of infection. She is followed by [facility] but notes that her blood glucose is not regularly checked at visits nor is she given routine lab follow-ups. She reports being on a high-dose insulin regimen, taking 100 units of Basaglar BID and 60 units of Lispro BID daily. Additionally, she mentions a recent intentional weight loss of approximately 35 pounds. Related Data Home Medications ?Medication ?Instructions ?Recorded ?Confirmed amlodipine 5 mg tablet 5 mg PO QDAY 01/20/23 omeprazole 40 mg capsule,delayed 20 mg PO QDAY 3 10/12/23 release albuterol sulfate 90 mcg/actuation 2 puff inhalation Q 4H PRN 06/26/23 10/12/23 aerosol inhaler (Ventolin HFA) Shortness Of Breath Or Wheezing aspirin 81 mg chewable tablet 81 mg PO QDAY 10/02/23 0 10/12/23 (Aspirin Childrens) furosemide 20 mg tablet (Lasix) 20 mg PO QDAY 10/02/23 10/12/23 nitroglycerin 0.3 mg sublingual 0.3 mg buccal [id number] PRN Chest 10/02/23 10/12/23 tablet (Nitrostat) Pain acetaminophen 500 mg tablet 500 mg PO Q6H PRN Pain 03/2510/12/23 insulin lispro 100 unit/mL 40 unit subcut TID 10/12/23 10/12/23 subcutaneous pen Previous Rx's ?Medication ?Instructions ?Recorded ibuprofen 800 mg tablet 800 mg PO TID PRN pain #30 t abs 02/09/24 Allergies Allergy/AdvReac Type Severity Reaction Status Date / Time cephalexin Allergy Severe Rash Verified 06/18/24 11:50 clindamycin Allergy Severe Hives Verified 06/18/24 11:50 sulfamethoxazole Allergy Severe RASH TO Verified 06/18/24 11:50 BODY trimethoprim Allergy Severe RASH TO Verified 06/18/24 11:50 BODY Penicillins Allergy Intermediate Hives Verified 06/18/24 11:50 Review of Systems Review of Systems Systems Reviewed: All systems reviewed, normal except as documented Past Medical History Past Medical History NEUROLOGIC: Negative Neurological Disorders or Seizures CARDIAC: Positive Cardiac Disorders, Myocardial Infarction (2022), Coronary Carol ry Disease and Hypertension; Negative Congestive Heart Failure RESPIRATORY: Positive Asthma and Sleep Apnea; Negative Chronic Obstructive Pulmonary Disease (COPD) GASTROINTESTINAL: Positive Gastrointestinal Disorders, Gastroesophageal Reflux Disease and Obesity; Negative Hepatitis GENITOURINARY: Negative Genitourinary Disorders or Renal Disease REPRODUCTIVE: Positive Previous Pregnancies MUSCULOSKELETAL: Negative Musculoskeletal Disorders ENT: Positive Ear Infection and Deafness (Right) ENDOCRINE: Positive Endocrine Disorders and Diabetes Mellitus Type 2; Negative Diabetes Mellitus Type 1 HEMATOLOGIC: Positive Clotting Problems (DVT left leg 5 years ago); Negative Blood Disorders or Sickle Cell Disease PSYCHO/SOCIAL: Positive Depression and Anxiety OTHER HISTORY: Positive Hospitalization (surgery), Blood Transfusions, Chemotherapy (2006), Chicken Pox and Cancer (liver 2006); Negative Autoimmune Disease, Shingles, Blood Transfusion Reaction or Anesthesia Reactions Family History FAMILY HISTORY: Positive Family Respiratory Disorders, Family Cardiac Disorders, Family Cancer and Family Surgery; Negative Family Psychiatric Problems, Family Gastrointestinal Problems or Family Anesthesia Reaction Surgical History SURGICAL: Positive Angiogram (no stents, only plasty 2022), Abdominal Surgery, Hysterectomy, Tubal Ligation and Section; Negative Cardiac Surgery or Endocrine Surgery Social History SMOKING STATUS: Current every day smoker SECOND HAND EXPOSURE: Yes ED Exam General Limitations: Present no limitations General appearance: Present alert and in no apparent distress Head Head exam: Present atraumatic Eye Eye exam: Present normal appearance, PERRL and EOMI ENT ENT exam: Present normal exam, normal oropharynx and mucous membranes moist Neck Neck exam: Present normal inspection, full ROM and trachea midline Chest Chest inspection: Present normal inspection and symmetric chest wall rise Respiratory Respiratory exam: Present normal lung sounds bilaterally Cardiovascular Cardiovascular exam: Present regular rate, normal rhythm and normal heart sounds Abdominal Exam Abdominal exam: Present soft and normal bowel sounds Extremities Exam Extremities exam: Present normal inspection and full ROM Back Exam Back exam: Present normal inspection and full ROM Neurological Exam Neurological exam: Present alert, oriented X3 and CN II-XII intact Psychiatric Psychiatric exam: Present normal affect and normal mood Skin Skin exam: Present warm, dry, intact and normal color Course Course Course Narrative: CXR is ordered for determining etiology of shortness of breath. Quality Measures none Orders Category Date Time Status Bedside Blood Glucose NOW Care 06/18/24 11:53 Active Bedside Blood Glucose STAT Care 06/18/24 15:06 Active Sap Solution Manager Consultant STAT Care 06/18/24 15:06 Active EKG (ED ONLY) *Do not use* NOW Care 06/18/24 11:53 Completed Insert IV STAT Care 06/18/24 15:06 Active Intake and Output Routine Care 06/18/24 15:06 Ordered NPO NOW Care 06/18/24 15:06 Active EKG (ED Only) Stat Exams 06/18/24 11:53 Draft XR chest 2V Stat Exams 06/18/24 12:11 Completed A1C [Glycohemoglobin w (eAG)] Stat Lab 06/18/24 12:23 Completed Arterial Blood Gas Stat Lab 06/18/24 16:01 Completed B-Type Natriuretic Peptide Stat Lab 06/18/24 12:23 Completed Beta Hydroxybutyrate Stat Lab 06/18/24 12:23 Completed Beta Hydroxybutyrate Stat Lab 06/18/24 15:37 Completed Blood Culture (Lab) Stat Lab 06/18/24 15:41 Received CBC Stat Lab 06/18/24 12:23 Completed CBC Stat Lab 06/18/24 15:37 Completed Comprehensive Metabolic Panel Stat Lab 06/18/24 12:23 Completed Drug Screen,Urine Stat Lab 06/18/24 12:45 Completed Glycohemoglobin w (eAG) Stat Lab 06/18/24 15:37 Completed HCG Qualitative,Urine Stat Lab 06/18/24 12:45 Completed Lactate (Lactic Acid) Stat Lab 06/18/24 15:37 Completed Lactic Acid, 3 HR Stat Lab 06/18/24 21:33 Received Lipase Stat Lab 06/18/24 12:23 Completed Magnesium Stat Lab 06/18/24 12:23 Completed Magnesium Stat Lab 06/18/24 15:37 Completed Partial Thromboplastin Time Stat Lab 06/18/24 12:23 Completed Phosphorous Stat Lab 06/18/24 15:37 Completed Prothrombin Time with INR Stat Lab 06/18/24 12:23 Completed Troponin I Stat Lab 06/18/24 12:23 Completed Urinalysis Stat Lab 06/18/24 12:45 Completed Urinalysis Stat Lab 06/18/24 17:08 Completed VBG [Venous Blood Gas] Stat Lab 06/18/24 12:23 Completed Dextrose 50% Syr [D50w Syringe Abboject] Med 06/18/24 15:05 Discontinued 25 ml IV PRNMRX1 PRN Insulin Regular Med 06/18/24 15:04 Discontinued 12 unit SC X1 ONE Ondansetron Odt [Zofran Odt] Med 06/18/24 15:04 Discontinued 4 mg PO X1 ONE Ringers Lactated 1000 ml [Lactated Ringers] 1,000 ml Med 06/18/24 15:05 Active IV 250 mls/hr Ringers Lactated 1000 ml [Lactated Ringers] 1,000 ml Med 06/18/24 15:15 Discontinued IV Q1H Vital Signs Vital signs: Vital Signs Temperature 98.5 F 06/18/24 12:02 Pulse Rate 91 06/18/24 12:02 Respiratory Rate 18 06/18/24 12:02 Blood Pressure 163/97 H 06/18/24 12:02 Pulse Oximetry (%) 99 06/18/24 12:02 Oxygen Delivery Method Room Air 06/18/24 12:02 Shortness of Breath / Dyspnea MDM Narrative MDM Narrative:: Scribe Attestation: I, Nathalia Loredo am scribing for and in the presence of Dr. Camarena. Provider Notation: Although this document has been carefully reviewed, there may still be some phonetic and other typographical errors. These errors are purely grammatical due to imperfections in the software program and should not be construed in any way to compromise the substance of the patient's medical care during this visit. Patient data External records reviewed:: [facility] previous records Clinical information provided by:: patient Social determinants that could affect healthcare access:: none Patient has the following chronic illnesses:: see PMH How is presenting disease/condition affected by chronic disease/condition?: uneffected by Evaluation data The following diagnostics were reviewed and interpreted by me:: lab results, radiology exam(s) and EKG tracing(s) Lab and/or radiology exams considered but not ordered:: NA Interpretation Summary: Anion gap is normal pH is normal Negative serum ketones No signs of DKA The EKG, as interpreted by me, taken at 1216, shows normal sinus rhythm (NSR) with a heart rate of 85 bpm, normal axis, no ectopy, and no acute ischemic changes. Examination: PA lateral chest 2 views TECHNIQUE: Upright PA lateral chest 2 views Exam date and time: June 18, 2024 1231 hours INDICATIONS: Chest pain today. FINDINGS: Normal heart size Lungs are clear. The osseous structures are intact IMPRESSION: No active disease Dictated By: Alex Back MD Medications / Prescriptions Medications or Prescriptions considered but not ordered:: NA Medication administrations:: Medication Administration History Lactated Ringer's (Lactated Ringers) 1,000 mls @ 250 mls/hr IV .Q4H PRN PRN Reason: PER PROTOCOL Stop: 06/19/24 15:04 Discontinued Medications Dextrose (Dextrose 50%-Water Inj 50 Ml Syringe) 25 ml IV PRNMRX1 PRN PRN Reason: Blood Sugar - Low Lactated Ringer's (Lactated Ringers) 1,000 mls @ 1,000 mls/hr IV Q1H MEENU Stop: 06/18/24 17:14 Last Admin: 06/18/24 20:22 Dose: 1,000 mls/hr Documented By: EE Insulin Human Regular (Insulin Hum Regular 1 Unit/0.01 Ml (Per Unit)) 12 unit SC X1 ONE Stop: 06/18/24 15:05 Last Admin: 06/18/24 15:44 Dose: 12 unit Documented By: Co-signed By: OA Ondansetron HCl (Ondansetron Odt 4 Mg Tabrap) 4 mg PO X1 ONE; Protocol Stop: 06/18/24 15:05 Last Admin: 06/18/24 15:44 Dose: 4 mg Documented By: as above Consultations Consultation(s) initiated? (list below): No Diagnosis Shortness of Breath Differential Diagnosis: other (Hyperglycemia, DKA, Hyperosmolar state, Medication noncompliance) Most likely diagnosis given after review of the tests above:: Acute hyperglycemia Admission Indicated Admission indicated?: not indicated Admission Request Was there a request for admission?: No Disposition Plan Disposition Plan: Discharge Discharge Attestation Discharge Attestation: The patient and all family members were given an opportunity to ask questions and understood the discharge instructions. Discharge instructions specifically effects, indications for sooner follow up or return to the emergency department, and the expected course of current diagnosis. Patient condition: Stable Discharge Plan Plan Patient Disposition: HOME (Self Care) Disposition Comment: Stable for discharge home Patient condition on transfer: Stable Prescriptions/Referrals Prescriptions/Med Rec: No Action amlodipine 5 mg tablet 5 mg PO QDAY Patient Comments: take 1 tablet by mouth once daily omeprazole 40 mg capsule,delayed release(DR/EC) 20 mg PO QDAY Patient Comments: take 1 capsule by mouth 30 MINUTES PRIOR TO BREAKFAST once daily albuterol sulfate [Ventolin HFA] 90 mcg/actuation Hfa Aerosol Inhaler 2 puff INHALATION Q4H PRN (Reason: Shortness Of Breath Or Wheezing) nitroglycerin [Nitrostat] 0.3 mg Tablet, Sublingual 0.3 mg BUCCAL [id number] PRN (Reason: Chest Pain) aspirin [Aspirin Childrens] 81 mg Tablet,Chewable 81 mg PO QDAY furosemide [Lasix] 20 mg Tablet 20 mg PO QDAY acetaminophen 500 mg Tablet 500 mg PO Q6H PRN (Reason: Pain) insulin lispro 100 unit/mL Insulin Pen 40 unit SUBCUT TID ibuprofen 800 mg tablet 800 mg PO TID PRN (Reason: pain) Qty: 30 0RF Referrals: [facility] [Outside] - In 1 week [facility] [Outside] - In 1 week Problem List Clinical Impression: Acute hyperglycemia Patient/Caregiver Discharge Instructions Discharge Activity: activity as tolerated Education Materials: High Blood Sugar (Hyperglycemia), How to Check Your Blood Sugar, Glucose Check Steps, ED Diabetes with High Blood Sugar Additional Instructions: Today you were seen in the emergency department for hyperglycemia. Your blood sugar was about 600. You should follow-up with the [facility] or at [facility] and you should speak with your primary care doctor about your diabetes. You should ask your doctor if you are on the correct antidiabetes medications for you. You should also ask your doctor if you are on the correct dosages of medications. You should have regular blood work performed so that they can follow your blood sugar, assess for any damage from hyperglycemia, and be able to tell if they need to change or adjust your medications As always please return to the ER if you are having any worsening or any further medical problem Print Language: Martiniquais Stand Alone Forms: [employer] Award Info., Patient Portal Info Letter
[2024-06-18 21:55] LABS: Lactic Acid, 3 HR 1.8 mMol/L (0.4-2.0)
[2024-06-18] MEDS: INSULIN HUM REGULAR 1 UNIT/0.01 ML (PER UNIT) 10 UNIT IV (22:49)
[2024-06-18 23:21] VITALS: BP 142/80; PULSE 81; RESP 16; TEMP 36.8; O2SAT 98
[2024-06-19] MEDS: RINGERS LACTATED 1000 ML 1,000 ML IV (00:01)
[2024-06-19 00:48] VITALS: BP 146/67; PULSE 89; RESP 18; O2SAT 99
== END 2024-06-19 00:56 | disposition home or self-care (01) ==
PROVIDERS: Family Medicine; Nurse Practitioner Primary Care; Emergency Provider Emergency Medicine
DX: E11.65 Type 2 diabetes mellitus with hyperglycemia (principal); R07.9 Chest pain, unspecified
CPT/HCPCS: 36415; 36600; 71046; 80053; 80307; 81001; 81025; 82010; 82803; 83036; 83605; 83690; 83735; 83880; 84100; 84484; 85025; 85610; 85730; 87040; 93005; 96360; 96361; 96372; 99284; J1815; J7120; Q0162

== ENCOUNTER 2024-06-23 16:02 | Emergency (ER) | payer MEDICAID, SELFPAY ==
[2024-06-23 16:03] VITALS: BMI 54.5
[2024-06-23 16:20] VITALS: BP 178/92; PULSE 88; RESP 20; TEMP 36.9; O2SAT 95
--- NOTE | 2024-06-23 16:34 | PD.EDRME ---
Rapid Medical Screening Exam RME Arrival date/time: 06/23/24 16:02 44-year-old female with a history of type 2 diabetes presents to the emergency room with a chief complaint of a critically high blood pressure reading at home. Patient states she is on multiple diabetic medications and still unable to control her blood sugar. I have greeted and performed a focused initial assessment of this patient. A comprehensive ED assessment and evaluation of the patient, analysis of all test results, and completion of the medical decision making process will be conducted by additional ED providers. Chief Complaint: General Adult/Misc Complain Time Seen by Provider: 06/23/24 16:07 Vital signs: Vital Signs Temperature 98.4 F 06/23/24 16:20 Pulse Rate 88 06/23/24 16:20 Respiratory Rate 20 06/23/24 16:20 Blood Pressure 178/92 H 06/23/24 16:20 Pulse Oximetry (%) 95 06/23/24 16:20 Oxygen Delivery Method Room Air 06/23/24 16:20 Vital signs reviewed by provider: Yes
[2024-06-23 17:12] LABS: Basophils % (Auto) 1 % (0-2.5); Eosinophils # (Auto) 0.1 Thou/mm3 (0.0-0.5); Eosinophils % (Auto) 2 % (0-10); Hematocrit 38.3 % (36.0-46.0); Hemoglobin 12.5 g/dL (12.0-16.0); Immature Granulocytes % (Auto) 0 % (0-0); Immature Granulocytes Auto 0.03 Thou/mm3 (0.00-0.00); Lymphocytes # (Auto) 2.5 Thou/mm3 (1.0-4.8); Lymphocytes % (Auto) 28 % (10-50); Mean Corpuscular HGB Conc 32.6 g/dl (31.0-37.0); Mean Corpuscular Hemoglobin 24.9 pg (25.0-35.0); Mean Corpuscular Volume 76 fL (80-100); Monocytes # (Auto) 0.5 Thou/mm3 (0.0-0.8); Monocytes % (Auto) 6 % (0-12); Neutrophils # (Auto) 5.7 Thou/mm3 (1.8-7.7); Neutrophils % (Auto) 64 % (37-80); Nucleated Red Blood Cell % 0 /100 WBC (0); Platelet Count 234 Thou/mm3 (140-440); RDW Standard Deviation 43.9 fL (36.4-46.3); Red Blood Count 5.03 Miln/mm3 (4.00-5.20); White Blood Count 8.8 Thou/mm3 (3.6-11.0)
[2024-06-23] MEDS: ONDANSETRON ODT 4 MG TABRAP PO (17:24)
[2024-06-23 17:29] LABS: Collection Type, Urine Clean Catch; RBC,Urine 0 /hpf (0-3)
[2024-06-23 17:46] LABS: HCG Qualitative,Urine Negative
[2024-06-23 17:49] LABS: Bacteria,Urine Rare; Bilirubin,Urine Negative (Negative); Blood,Urine Negative (Negative); Budding Yeast,Urine Present; Clarity,Urine Clear (Clear/Hazy); Color,Urine Colorless (Lt Yel-Yel); Glucose, Urine 4+ (Negative); Ketones,Urine Negative (Negative); Leukocyte Esterase,Urine Negative (Negative); Nitrite,Urine Negative (Negative); PH,Urine 6.5 (5.0-7.0); Protein,Urine Negative (Neg - Trace); Specific Gravity,Urine 1.031 (1.001-1.035); Squamous Epithelial Cell,Urine 1 /hpf (0-5); Urobilinogen,Urine Negative mg/dL (0.0-1.0); WBC,Urine < 1 /hpf (0-5)
[2024-06-23 18:01] LABS: Alanine Aminotransferase 122 U/L (10-49); Albumin, Serum 3.8 gm/dL (3.5-5.0); Albumin/Globulin Ratio 1.3 (1.2-2.2); Alkaline Phosphatase 193 U/L (46-116); Anion Gap 7 (7-16); Aspartate Amino Transferase 74 U/L (0-34); BUN/Creatinine Ratio 8 Ratio (12-20); Bilirubin,Total 0.2 mg/dL (0.3-1.2); Blood Urea Nitrogen 8 mg/dL (9-23); Calcium 8.9 mg/dL (8.3-10.6); Calcium (Corrected) 9.1 mg/dL (8.5-10.1); Chloride 97 mMol/L (98-107); Estimated Creatinine Clearance 83.1 mL/min (>60); Globulin 2.9 gm/dL (2.3-3.5); Lipase 50 U/L (12-53); Osmolality,Calculated 289 (275-295); Potassium 4.1 mMol/L (3.4-5.1); Sodium 129 mMol/L (136-145); Total Protein 6.7 gm/dL (5.7-8.2); eGFR > 60 See Note
[2024-06-23 18:08] LABS: Glucose 678 mg/dL (74-106)
--- NOTE | 2024-06-23 18:08 | PC.NURSE ---
CALL FROM [facility] IN LAB WITH CRITICAL GLUCOSE OF 678. PUT IN MD NOTES.
--- NOTE | 2024-06-23 18:50 | EKG_ITS ---
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
--- NOTE | 2024-06-23 18:50 | XR_ITS ---
Examination: AP chest single view TECHNIQUE: Portable sitting AP chest single view Exam date time: June 23, 2024 1854 hours Comparison June 18, 2024 INDICATIONS: Shortness breath today. FINDINGS: Normal heart size. No lobar pneumonia or pulmonary edema The osseous structures are intact IMPRESSION: No lobar pneumonia or pulmonary edema
[2024-06-23 19:14] LABS: Troponin I < 0.020 ng/mL (0.0-0.045)
[2024-06-23 19:40] VITALS: BP 188/86; PULSE 77; RESP 20; TEMP 36.9; O2SAT 97
[2024-06-23] MEDS: SODIUM CHLORIDE 0.9% 1000 ML 1,000 ML 999 ML IV ×2 (19:43→21:11)
[2024-06-23] MEDS: INSULIN HUM REGULAR 1 UNIT/0.01 ML (PER UNIT) 10 UNIT IV ×3 (19:43→23:54)
[2024-06-23] MEDS: ONDANSETRON INJ 2 MG/ML INJ 2 ML 4 MG IV (19:43)
[2024-06-23] MEDS: MORPHINE SULF INJ 10 MG/ML VIAL 6 MG IVP (20:34)
[2024-06-23] MEDS: KETOROLAC INJ 30 MG/ML VIAL IVP (20:34)
[2024-06-23 21:17] VITALS: BP 150/82; PULSE 75; RESP 14; TEMP 36.7; O2SAT 97
--- NOTE | 2024-06-23 21:54 | PD.EDADULT ---
ED General RME/HPI General Chief complaint: General Adult/Misc Complain Stated complaint: PT'S BS OVER 600 PER METER READING ON PHONE Time Seen by Provider: 06/23/24 16:07 Arrival date/time: 06/23/24 16:02 RME / HPI RME / HPI narrative: 06/23/24 16:02 44-year-old female with a history of type 2 diabetes presents to the emergency room with a chief complaint of a critically high blood pressure reading at home. Patient states she is on multiple diabetic medications and still unable to control her blood sugar. I have greeted and performed a focused initial assessment of this patient. A comprehensive ED assessment and evaluation of the patient, analysis of all test results, and completion of the medical decision making process will be conducted by additional ED providers. This section includes all my notes and documentations, including HPI, PE, and ED course. Andres Silva MD HPI: 44-year-old female here to be evaluated with critically high blood sugar levels at home. She reports polyphagia, polydipsia, polyuria, fatigue and malaise, dry mouth, nausea, headache, dizziness, and blurry vision on and off. No other complaints. ROS: All negative except as documented in HPI. Physical Exam: General:? Alert and oriented.? Appearance of malaise noted. Eyes:? Conjunctivae and lids clear.? EOMI.? PERRL. ENT:? No nasal congestion.? Pharynx normal.? Tympanic membrane normal bilaterally.??? Neck:? Supple.? No carotid bruit.? No JVD.?? Heart:? RRR.? Lungs:? No respiratory distress.? Good air movement.? No rhonchi, wheezing, rales.?? Abdomen:? Soft and nontender.? Normal bowel sounds.? No distension.? No rebound or guarding.?? Back:? No CVA tenderness.?? Legs:? No clubbing, cyanosis, edema.? Skin:? Warm and dry.?? Neuro:? Alert and oriented X 3.? Cranial Nerves II-XII grossly intact.? No peripheral motor deficits. I reviewed all diagnostic test results. My interpretation of the EKG is sinus rhythm with no acute ST?T changes. My interpretation of the chest x-ray is no acute findings. My review of the head CT report is no acute findings, except sinusitis. Blood tests and urine tests hyperglycemia with DKA and yeast UTI. At this point, diagnoses include hyperglycemia and sinus infection. Treatment here included NS, Insulin, Toradol, Morphine, Zofran, Diflucan, and Tylenol with Codeine. Significant improvement noted. Recommended continued outpatient care. Based on my best medical judgment, made decision no further evaluation or treatment indicated at this time. Patient understands and agrees to the discharge instructions customized and printed, see below. Discharge Instructions from Dr. Silva printed for you: 1. After evaluation, you were treated for severely high sugar levels. Fortunately, there was no DKA. 2. Increase your insulin lispro to 50 units (from 40 units) 3X daily. And decrease high sugar and high carbohydrate diet. For good hydration, increase oral fluid and maintain clear urine. If dark or yellow, increase oral fluid. Zofran for nausea/vomiting. 3. Take Levaquin for the sinus infection. Tylenol with codeine for severe pain. 4. See your private doctor on 06/25/2024 for recheck and further care. Ask to review all test results and official radiology reports, to make sure you receive all necessary follow-ups and monitoring. 5. Seek immediate medical care with worsening or with any concerns. Andres Silva MD Related Data Home Medications ?Medication ?Instructions ?Recorded ?Confirmed amlodipine 5 mg tablet 5 mg PO QDAY 01/20/23 10/12/23 omeprazole 40 mg capsule,delayed 20 mg PO QDAY 01/20/23 10/12/23 release albuterol sulfate 90 mcg/actuation 2 puff inhalation Q4H PRN 06/26/23 10/12/23 aerosol inhaler (Ventolin HFA) Shortness Of Breath Or Wheezing aspirin 81 mg chewable tablet 81 mg PO QDAY 10/02/23 10/12/23 (Aspirin Childrens) furosemide 20 mg tablet (Lasix) 20 mg PO QDAY 10/02/23 10/12/23 nitroglycerin 0.3 mg sublingual 0.3 mg buccal [id number] PRN Chest 10/02/23 10/12/23 tablet (Nitrostat) Pain acetaminophen 500 mg tablet 500 mg PO Q6H PRN Pain 10/12/23 10/12/23 insulin lispro 100 unit/mL 40 unit subcut TID 10/12/23 10/12/23 subcutaneous pen Previous Rx's ?Medication ?Instructions ?Recorded ibuprofen 800 mg tablet 800 mg PO TID PRN pain #30 tabs 02/09/24 acetaminophen 300 mg-codeine 30 mg 2 tab PO Q8H PRN pain #20 tabs 06/24/24 tablet levofloxacin 500 mg tablet 500 mg PO QDAY 10 days #10 tabs 06/24/24 ondansetron 4 mg disintegrating 4 mg PO TID PRN nausea and 06/24/24 tablet vomiting 30 days #10 tabs Allergies Allergy/AdvReac Type Severity Reaction Status Date / Time cephalexin Allergy Severe Rash Verified 06/23/24 16:06 clindamycin Allergy Severe Hives Verified 06/23/24 16:06 sulfamethoxazole Allergy Severe RASH TO Verified 06/23/24 16:06 BODY trimethoprim Allergy Severe RASH TO Verified 06/23/24 16:06 BODY Penicillins Allergy Intermediate Hives Verified 06/23/24 16:06 Review of Systems Review of Systems Systems Reviewed: All systems reviewed, normal except as documented Past Medical History Past Medical History NEUROLOGIC: Negative Neurological Disorders or Seizures CARDIAC: Positive Cardiac Disorders, Myocardial Infarction (june 2023), Coronary Artery Disease and Hypertension; Negative Congestive Heart Failure RESPIRATORY: Positive Asthma and Sleep Apnea; Negative Chronic Obstructive Pulmonary Disease (COPD) GASTROINTESTINAL: Positive Gastrointestinal Disorders, Gastroesophageal Reflux Disease and Obesity; Negative Hepatitis GENITOURINARY: Negative Genitourinary Disorders or Renal Disease REPRODUCTIVE: Positive Previous Pregnancies MUSCULOSKELETAL: Negative Musculoskeletal Disorders ENT: Positive Ear Infection and Deafness ENDOCRINE: Positive Endocrine Disorders and Diabetes Mellitus Type 2; Negative Diabetes Mellitus Type 1 HEMATOLOGIC: Positive Clotting Problems; Negative Blood Disorders or Sickle Cell Disease PSYCHO/SOCIAL: Positive Depression and Anxiety OTHER HISTORY: Positive Hospitalization, Blood Transfusions, Chemotherapy, Chicken Pox and Cancer; Negative Autoimmune Disease, Shingles, Blood Transfusion Reaction or Anesthesia Reactions Family History FAMILY HISTORY: Positive Family Respiratory Disorders, Family Cardiac Disorders, Family Cancer and Family Surgery; Negative Family Psychiatric Problems, Family Gastrointestinal Problems or Family Anesthesia Reaction Surgical History SURGICAL: Positive Angiogram, Abdominal Surgery, Hysterectomy, Tubal Ligation and Section; Negative Cardiac Surgery or Endocrine Surgery Social History SMOKING STATUS: Current every day smoker SECOND HAND EXPOSURE: Yes ED Exam Narrative Physical exam: As noted in HPI. Course Course Course Narrative: CXR is ordered for determining the etiology of shortness of breath. Quality Measures none Orders Category Date Time Status Bedside COVID-19 Antigen Test NOW Care 06/23/24 18:49 Completed Bedside Influenza A&B Antigen Test NOW Care 06/23/24 18:49 Completed EKG (ED ONLY) *Do not use* NOW Care 06/23/24 18:50 Completed Fingerstick [Bedside Blood Glucose] NOW Care 06/23/24 16:33 Completed Glucose [Bedside Blood Glucose] NOW Care 06/23/24 20:25 Completed Glucose [Bedside Blood Glucose] NOW Care 06/24/24 01:13 Completed Glucose [Bedside Blood Glucose] NOW Care 06/24/24 03:32 Completed Saline [Insert IV] NOW Care 06/23/24 18:[address] head/brain wo con Stat Exams 06/24/24 02:20 Completed EKG (ED Only) Stat Exams 06/23/24 18:50 Draft XR chest 1V portable Stat Exams 06/23/24 18:50 Completed BMP [Basic Metabolic Panel] Stat Lab 06/23/24 21:52 Completed Beta Hydroxybutyrate Stat Lab 06/23/24 16:47 Completed CBC Stat Lab 06/23/24 16:47 Completed CMP [Comprehensive Metabolic Panel] Stat Lab 06/23/24 16:47 Completed HCG Qualitative,Urine Stat Lab 06/23/24 17:23 Completed Lipase Stat Lab 06/23/24 16:47 Completed Troponin I Stat Lab 06/23/24 16:47 Completed UA [Urinalysis] Stat Lab 06/23/24 17:23 Completed Urine Culture Stat Lab 06/23/24 17:23 Received ACETAMINOPHEN w/COD 300-30 [Tylenol w/Cod #3] Med 06/24/24 02:20 Discontinued 2 tab PO X1 ONE Fluconazole/Ns 200 mg Ivpb [Diflucan/Ns Ivpb] Med 06/23/24 22:20 Discontinued 200 mg in 100 ml IV X1 Insulin Regular Med 06/23/24 18:49 Discontinued 10 unit IV X1 ONE Insulin Regular Med 06/23/24 20:51 Discontinued 10 unit IV X1 ONE Insulin Regular Med 06/23/24 23:43 Discontinued 10 unit IV X1 ONE Ketorolac Inj [Toradol Inj] Med 06/23/24 20:25 Discontinued 30 mg IVP X1 ONE Morphine Inj Med 06/23/24 20:25 Discontinued 6 mg IVP X1 ONE Ondansetron Inj [Zofran Inj] Med 06/23/24 18:49 Discontinued 4 mg IV X1 ONE Ondansetron Odt [Zofran Odt] Med 06/23/24 16:33 Discontinued 4 mg PO X1 ONE Sodium Chloride 0.9% 1000 ml [Ns] 1,000 ml Med 06/23/24 18:49 Discontinued IV 999 mls/hr Sodium Chloride 0.9% 1000 ml [Ns] 1,000 ml Med 06/23/24 20:51 Discontinued IV 999 mls/hr Vital Signs Vital signs: Vital Signs Temperature 98.4 F 06/23/24 16:20 Pulse Rate 88 06/23/24 16:20 Respiratory Rate 20 06/23/24 16:20 Blood Pressure 178/92 H 06/23/24 16:20 Pulse Oximetry (%) 95 06/23/24 16:20 Oxygen Delivery Method Room Air 06/23/24 16:20 [facility] Patient data External records reviewed:: [facility] previous records (Per chart review, patient was seen here on 06/18/24 for acute hyperglycemia.) Clinical information provided by:: patient Social determinants that could affect healthcare access:: none Patient has the following chronic illnesses:: CAD, HTN, DM, asthma How is presenting disease/condition affected by chronic disease/condition?: caused by Evaluation data The following diagnostics were reviewed and interpreted by me:: lab results and radiology exam(s) Lab and/or radiology exams considered but not ordered:: none Interpretation Summary: Hyperglycemia, Sinus infection Medications Medications considered but not ordered:: none Medication administrations:: Medication Administration History Discontinued Medications Acetaminophen/Codeine Phosphate (Acetaminophen W/Cod 300-30 Tablet) 2 tab PO X1 ONE Stop: 06/24/24 02:21 Last Admin: 06/24/24 02:56 Dose: 2 tab Documented By: EF Sodium Chloride (Ns) 1,000 mls @ 999 mls/hr IV .Q1H1M ONE Stop: 06/23/24 19:49 Last Infusion: 06/23/24 20:44 Dose: Infused Documented By: Admin: 06/23/24 19:43 Dose: 999 mls/hr Documented By: EF Sodium Chloride (Ns) 1,000 mls @ 999 mls/hr IV .Q1H1M ONE Stop: 06/23/24 21:51 Last Infusion: 06/23/24 22:12 Dose: Infused Documented By: Admin: 06/23/24 21:11 Dose: 999 mls/hr Documented By: EF Fluconazole (Diflucan/Ns Ivpb) 200 mg in 100 mls @ 100 mls/hr IV X1 ONE Stop: 06/23/24 23:19 Last Infusion: 06/24/24 00:54 Dose: Infused Documented By: Admin: 06/23/24 23:54 Dose: 100 mls/hr Documented By: EF Insulin Human Regular (Insulin Hum Regular 1 Unit/0.01 Ml (Per Unit)) 10 unit IV X1 ONE Stop: 06/23/24 18:50 Last Admin: 06/23/24 19:43 Dose: 10 unit Documented By: EF Co-signed By: WO Insulin Human Regular (Insulin Hum Regular 1 Unit/0.01 Ml (Per Unit)) 10 unit IV X1 ONE Stop: 06/23/24 20:52 Last Admin: 06/23/24 21:11 Dose: 10 unit Documented By: EF Co-signed By: WO Insulin Human Regular (Insulin Hum Regular 1 Unit/0.01 Ml (Per Unit)) 10 unit IV X1 ONE Stop: 06/23/24 23:44 Last Admin: 06/23/24 23:54 Dose: 10 unit Documented By: EF Co-signed By: AC Ketorolac Tromethamine (Ketorolac Inj 30 Mg/Ml Vial) 30 mg IVP X1 ONE Stop: 06/23/24 20:26 Last Admin: 06/23/24 20:34 Dose: 30 mg Documented By: EF Morphine Sulfate (Morphine Sulf Inj 10 Mg/Ml Vial) 6 mg IVP X1 ONE Stop: 06/23/24 20:26 Last Admin: 06/23/24 20:34 Dose: 6 mg Documented By: EF Ondansetron HCl (Ondansetron Odt 4 Mg Tabrap) 4 mg PO X1 ONE; Protocol Stop: 06/23/24 16:34 Last Admin: 06/23/24 17:24 Dose: 4 mg Documented By: DB Ondansetron HCl (Ondansetron Inj 2 Mg/Ml Inj 2 Ml) 4 mg IV X1 ONE; Protocol Stop: 06/23/24 18:50 Last Admin: 06/23/24 19:43 Dose: 4 mg Documented By: EF NS, Insulin, Toradol, Morphine, Zofran, Diflucan, Tylenol with Codeine Consultations Consultation(s) initiated? (list below): No Diagnosis Differential Diagnosis ED Complaint MDM: CVA, brain tumor, ND, DKA, dehydration, electrolyte abnormalities, UTI Most likely diagnosis given after review of the tests above:: Hyperglycemia, Sinus infection Admission Indicated Admission indicated?: not indicated Explain why admission is indicated or not indicated:: With significant improvement, there was no indication for admission. Admission Request Was there a request for admission?: No Disposition Plan Disposition Plan: Discharge Discharge Attestation Discharge Attestation: The patient and all family members were given an opportunity to ask questions and understood the discharge instructions. Discharge instructions specifically effects, indications for sooner follow up or return to the emergency department, and the expected course of current diagnosis. Patient condition: Stable Medical Decision Making Differential Diagnosis Differential Diagnosis: CVA, brain tumor, ND, DKA, dehydration, electrolyte abnormalities, UTI Lab Data 06/23/24 16:47 06/23/24 21:52 Labs: Lab Results 06/23/24 06/23/24 06/23/24 Range/Units 16:47 17:23 21:52 WBC 8.8 (3.6-11.0) Thou/mm3 RBC 5.03 (4.00-5.20) Miln/mm3 Hgb 12.5 (12.0-16.0) g/dL Hct 38.3 (36.0-46.0) % MCV 76 L (80-100) fL MCH 24.9 L (25.0-35.0) pg MCHC 32.6 (31.0-37.0) g/dl RDW Std Deviation 43.9 (36.4-46.3) fL Plt Count 234 (140-440) Thou/mm3 Neut % (Auto) 64 (37-80) % Lymph % (Auto) 28 (10-50) % [place] % (Auto) 6 (0-12) % Eos % (Auto) 2 (0-10) % Baso % (Auto) 1 (0-2.5) % Neut # (Auto) 5.7 (1.8-7.7) Thou/mm3 Lymph # (Auto) 2.5 (1.0-4.8) Thou/mm3 [place] # (Auto) 0.5 (0.0-0.8) Thou/mm3 Eos # (Auto) 0.1 (0.0-0.5) Thou/mm3 Baso # (Auto) 0.0 (0.0-0.2) Thou/mm3 Immature Gran # (Auto) 0.03 H (0.00-0.00) Thou/mm3 Absolute Nucleated RBC 0.00 (0.00-0.00) Thou/mm3 Immature Gran % 0 (0-0) % Nucleated RBC % 0 (0) /100 WBC Sodium 129 L 137 (136-145) mMol/L Potassium 4.1 3.7 (3.4-5.1) mMol/L Chloride 97 L 102 (98-107) mMol/L Carbon Dioxide 25.0 27.5 (20.0-31.0) mMol/L Anion Gap 7 8 (7-16) BUN 8 L 9 (9-23) mg/dL Creatinine 1.0 0.7 (0.6-1.3) mg/dL Estim Creat Clear Calc 83.1 118.8 (>60) mL/min eGFR > 60 > 60 (60 - ) See Note BUN/Creatinine Ratio 8 L 13 (12-20) Ratio Glucose 678 H* 373 H D (74-106) mg/dL Calculated Osmolality 289 287 (275-295) Calcium 8.9 8.9 (8.3-10.6) mg/dL Corrected Calcium 9.1 (8.5-10.1) mg/dL Total Bilirubin 0.2 L (0.3-1.2) mg/dL AST 74 H (0-34) U/L ALT 122 H (10-49) U/L Alkaline Phosphatase 193 H (46-116) U/L Troponin I < 0.020 (0.0-0.045) ng/mL Total Protein 6.7 (5.7-8.2) gm/dL Albumin 3.8 (3.5-5.0) gm/dL Globulin 2.9 (2.3-3.5) gm/dL Albumin/Globulin Ratio 1.3 (1.2-2.2) Lipase 50 (12-53) U/L Beta-Hydroxybutyrate/Acetoacetate 0.0 (<0.6) mmol/L Ur Collection Type Clean Catch Urine Color Colorless A (Lt Yel-Yel) Urine Clarity Clear (Clear/Hazy) Urine pH 6.5 (5.0-7.0) Ur Specific [place] 1.031 (1.001-1.035) Urine Protein Negative (Neg - Trace) Urine Glucose (UA) 4+ A (Negative) Urine Ketones Negative (Negative) Urine Blood Negative (Negative) Urine Nitrite Negative (Negative) Urine Bilirubin Negative (Negative) Urine Urobilinogen (Auto) Negative (0.0-1.0) mg/dL Ur Leukocyte Esterase Negative (Negative) Urine RBC 0 (0-3) /hpf Urine WBC < 1 (0-5) /hpf Ur Squamous Epith Cells 1 (0-5) /hpf Urine Bacteria Rare (None) Urine Yeast (Budding) Present A (None) Urine HCG, Qual Negative Discharge Plan Plan Patient Disposition: HOME (Self Care) Prescriptions/Referrals Prescriptions/Med Rec: New acetaminophen-codeine 300-30 mg tablet 2 tab PO Q8H MDD 6 PRN (Reason: pain) Qty: 20 0RF ondansetron 4 mg tablet,disintegrating 4 mg PO TID PRN (Reason: nausea and vomiting) 30 Days Qty: 10 0RF levofloxacin 500 mg tablet 500 mg PO QDAY 10 Days Qty: 10 0RF No Action amlodipine 5 mg tablet 5 mg PO QDAY Patient Comments: take 1 tablet by mouth once daily omeprazole 40 mg capsule,delayed release(DR/EC) 20 mg PO QDAY Patient Comments: take 1 capsule by mouth 30 MINUTES PRIOR TO BREAKFAST once daily albuterol sulfate [Ventolin HFA] 90 mcg/actuation Hfa Aerosol Inhaler 2 puff INHALATION Q4H PRN (Reason: Shortness Of Breath Or Wheezing) nitroglycerin [Nitrostat] 0.3 mg Tablet, Sublingual 0.3 mg BUCCAL [id number] PRN (Reason: Chest Pain) aspirin [Aspirin Childrens] 81 mg Tablet,Chewable 81 mg PO QDAY furosemide [Lasix] 20 mg Tablet 20 mg PO QDAY acetaminophen 500 mg Tablet 500 mg PO Q6H PRN (Reason: Pain) insulin lispro 100 unit/mL Insulin Pen 40 unit SUBCUT TID ibuprofen 800 mg tablet 800 mg PO TID PRN (Reason: pain) Qty: 30 0RF Referrals: No Primary/Family,Physician [Primary Care Provider] - In 1 week Problem List Clinical Impression: High blood sugar, Sinus infection Patient/Caregiver Discharge Instructions Discharge Activity: activity as tolerated Education Materials: ED Diabetes with High Blood Sugar, ED Sinusitis (Antibiotic Treatment) Additional Instructions: Discharge Instructions from Dr. Silva printed for you: 1. After evaluation, you were treated for severely high sugar levels. Fortunately, there was no DKA. 2. Increase your insulin lispro to 50 units (from 40 units) 3X daily. And decrease high sugar and high carbohydrate diet. For good hydration, increase oral fluid and maintain clear urine. If dark or yellow, increase oral fluid. Zofran for nausea/vomiting. 3. Take Levaquin for the sinus infection. Tylenol with codeine for severe pain. 4. See your private doctor on 06/25/2024 for recheck and further care. Ask to review all test results and official radiology reports, to make sure you receive all necessary follow-ups and monitoring. 5. Seek immediate medical care with worsening or with any concerns. Print Language: Nepali Stand Alone Forms: [employer] Award Info., Patient Portal Info Letter
[2024-06-23 23:26] LABS: Anion Gap 8 (7-16); BUN/Creatinine Ratio 13 Ratio (12-20); Blood Urea Nitrogen 9 mg/dL (9-23); Calcium 8.9 mg/dL (8.3-10.6); Carbon Dioxide 27.5 mMol/L (20.0-31.0); Chloride 102 mMol/L (98-107); Creatinine (Component) 0.7 mg/dL (0.6-1.3); Estimated Creatinine Clearance 118.8 mL/min (>60); Glucose 373 mg/dL (74-106); Osmolality,Calculated 287 (275-295); Potassium 3.7 mMol/L (3.4-5.1); Sodium 137 mMol/L (136-145); eGFR > 60 See Note
[2024-06-23 23:46] VITALS: BP 147/82; PULSE 72; RESP 18; TEMP 36.6; O2SAT 98
[2024-06-23] MEDS: FLUCONAZOLE/NS 200 MG IVPB 200 MG/100 ML BAG 100 MG IV (23:54)
--- NOTE | 2024-06-24 02:20 | XR_ITS ---
Examination: CT brain head without contrast. 2-D sagittal coronal reconstructions Date and time of exam:June 24, 2024 0326 hours Comparison February 09, 2024 INDICATIONS: Onset severe headache today CTDI: vol (mGy):54.7 DLP: (mGycm):1096 Technique: Multiple CT axial sections of the brain have been obtained, 5 mm slice thickness. Contrast has not been administered. 2-D sagittal, coronal reconstructions have been obtained Low dose protocols were performed. One or more of the following dose reduction techniques were used; automated exposure control, adjustment of the mA and/or KV according to patient size, use of iterative reconstruction technique. Findings: No significant ventricular enlargement. Intra-axial or extra-axial hemorrhage density is not seen. No mass effect or midline shift Basal cisterns are not remarkable. Fourth ventricle is midline. Cranial vault intact. Significant left maxillary sinusitis Impression: Negative for acute hemorrhage, mass effect or midline shift
[2024-06-24] MEDS: ACETAMINOPHEN w/COD 300-30 TABLET 2 TAB PO (02:56)
--- NOTE | 2024-06-24 03:59 | PRELIM_ITS ---
CT scan of the head without intravenous contrast (axial sections with sagittal and coronal reformats). June 24, 2024 0326 hours Clinical History: Severe headache No prior study is available for comparison. Findings: No evidence of intracranial hemorrhage, mass effect or midline shift. The ventricles and CSF spaces are unremarkable. The calvarium is unremarkable. There is a fluid level in the left maxillary sinus. There is partial opacification of the bilateral mastoid air cells. The other visualized paranasal sinuses are clear. Impression: No evidence of intracranial hemorrhage, mass effect or midline shift. Sinus disease as described above. Report Electronically Signed By: Rohini Franz 06/24/2024 3:58:50 AM [EST]
[2024-06-24 04:22] VITALS: BP 130/70; PULSE 71; RESP 16; TEMP 36.8; O2SAT 95
[2024-06-24 05:00] VITALS: BP 130/70; PULSE 70; RESP 14; TEMP 36.6; O2SAT 98
== END 2024-06-24 05:01 | disposition home or self-care (01) ==
PROVIDERS: Nurse Practitioner Family; Emergency Provider Emergency Medicine
DX: E11.65 Type 2 diabetes mellitus with hyperglycemia (principal)
CPT/HCPCS: 36415; 70450; 71045; 80048; 80053; 81001; 81025; 82010; 83690; 84484; 85025; 87086; 87400; 87811; 93005; 96361; 96365; 96375; 99284; J1450; J1815; J1885; J2270; J2405; J7030; Q0162; A9270

== ENCOUNTER 2024-09-25 18:47 | Emergency (ER) | payer MEDICAID, SELFPAY ==
[2024-09-25 20:30] VITALS: BP 161/88; PULSE 78; RESP 20; TEMP 36.9; O2SAT 95
--- NOTE | 2024-09-25 20:39 | XR_ITS ---
Examination: Foot, left, 3 views Technique: AP, oblique, lateral views foot, 3 views Date and time of exam: September 25, 2024 at 2043 hours INDICATIONS: Injury to foot today with a digit pain. FINDINGS: Fracture distal aspect proximal phalanx fifth digit intra-articular with subluxation at the interphalangeal joint No foreign body IMPRESSION: Fracture distal aspect proximal phalanx fifth digit, intra-articular with subluxation at the interphalangeal joint
--- NOTE | 2024-09-25 20:40 | EDNOTE_ITS ---
<Statement entered by Yoselyn Stone MD - 09/26/24 23:29> As co-signing physician, I was present and available for consult prn. I concur with the plan and care as documented by the midlevel provider. Lower Extremity Injury RME/HPI General Chief Complaint: Ankle/Foot Injury Stated Complaint: Left leg got caught between door and ramp Time Seen by Provider: 09/25/24 20:21 Arrival date/time: 09/25/24 18:47 RME / HPI RME / HPI Narrative: 44-year-old female patient came in for evaluation regarding left foot pain. Patient had an injury to the foot today with a metal resulting in the pain and swelling, severity moderate. Patient told me that she is unable to ambulate due to pain. No medication was taken prior to arrival. Related Data Home Medications ?Medication ?Instructions ?Recorded ?Confirmed amlodipine 5 mg tablet 5 mg PO QDAY 01/20/23 omeprazole 40 mg capsule,delayed 20 mg PO QDAY 3 10/12/23 release albuterol sulfate 90 mcg/actuation 2 puff inhalation Q 4H PRN 06/26/23 10/12/23 aerosol inhaler (Ventolin HFA) Shortness Of Breath Or Wheezing aspirin 81 mg chewable tablet 81 mg PO QDAY 10/02/23 0 10/12/23 (Aspirin Childrens) furosemide 20 mg tablet (Lasix) 20 mg PO QDAY 10/02/23 10/12/23 nitroglycerin 0.3 mg sublingual 0.3 mg buccal [id number] E PRN Chest 10/02/23 10/12/23 tablet (Nitrostat) Pain acetaminophen 500 mg tablet 500 mg PO Q6H PRN Pain 03/2510/12/23 insulin lispro 100 unit/mL 40 unit subcut TID 10/12/23 10/12/23 subcutaneous pen Previous Rx's ?Medication ?Instructions ?Recorded ibuprofen 800 mg tablet 800 mg PO TID PRN pain #30 t abs 02/09/24 acetaminophen 300 mg-codeine 30 mg 2 tab PO Q8H PRN pa in #20 tabs 06/24/24 tablet acetaminophen 300 mg-codeine 30 mg 1 tab PO Q8H PRN pa in #20 tabs 09/25/24 tablet Allergies Allergy/AdvReac Type Severity Reaction Status Date / Time cephalexin Allergy Severe Rash Verified 09/25/24 18:52 clindamycin Allergy Severe Hives Verified 09/25/24 18:52 sulfamethoxazole Allergy Severe RASH TO Verified 09/25/24 18:52 BODY trimethoprim Allergy Severe RASH TO Verified 09/25/24 18:52 BODY Penicillins Allergy Intermediate Hives Verified 09/25/24 18:52 Review of Systems Review of Systems Narrative Review of Systems: Review of system reviewed and within normal limits except mentioned in HPI ED Exam Narrative Physical exam: VITAL SIGNS: Reviewed. GENERAL APPEARANCE: Alert and interactive, follows commands, no acute distress, HEAD AND FACE: Non-traumatic. ENT: PERRL, pink conjunctivitis, eyelid no trauma, Mucous membrane moist. NECK: Supple, nontender, no nuchal rigidity. CHEST: No tenderness, no crepitus, no paradoxical movement, no retractions. LUNGS: Clear, well ventilated, symmetric, no rales, no wheezing, no ronchi, no stridor, good breath sounds bilaterally. HEART: Regular rate, regular rhythm, no murmur, no gallops. ABDOMEN: Soft, positive bowel sounds, nondistended, no guarding, nontender, no rebound, no masses, RECTAL: Deferred. GENITAL: Deferred. NEUROLOGICAL: Gross motor function intact sensory function intact, Appropriate for age. MUSCULOSKELETAL: low back nontender, full range of motion. EXTREMITIES: Left foot swelling, tenderness, midfoot no deformity no crepitus, full range of motion. SKIN: Color pink, dry, no rash, no lacerations, no abrasions, no contusions. LYMPHATICS: Deferred. Course Quality Measures none Orders Category Date Time Status Crutches .NOW Care 09/25/24 20:39 Active XR foot comp LT min 3V Stat Exams 09/25/24 20:39 Completed Ketorolac Inj [Toradol Inj] Med 09/25/24 20:39 Discontinued 30 mg IM X1 ONE Vital Signs Vital signs: Vital Signs Temperature 98.5 F 09/25/24 20:30 Pulse Rate 78 09/25/24 20:30 Respiratory Rate 20 09/25/24 20:30 Blood Pressure 161/88 H 09/25/24 20:30 Pulse Oximetry (%) 95 09/25/24 20:30 Oxygen Delivery Method Room Air 09/25/24 20:30 Extremity Injury, Lower MDM Narrative [facility] Narrative:: 44-year-old female patient came in for evaluation regarding left foot pain. Patient had an injury to the foot today with a metal resulting in the pain and swelling, severity moderate. Patient told me that she is unable to ambulate due to pain. No medication was taken prior to arrival. X-ray of the foot came back with no fracture dislocation on the injured area however there is old fracture noted on the fifth metatarsal. Results discussed with the patient. Patient given crutches. Patient appears nontoxic and hemodynamically stable .Decision to discharge the patient. The patient/family was given an opportunity to ask questions and understood their discharge instructions. Discharge instructions specifically included follow up provider and time frame, current and/or new medications and possible side effects, indications for sooner follow up or return to the emergency department, and the expected course of current diagnosis. Patient reports feeling better as well and giving evidence of significant clinical improvement, I believe patient is now a candidate for discharge. Patient data External records reviewed:: None Clinical information provided by:: patient Social determinants that could affect healthcare access:: none Patient has the following chronic illnesses:: None How is presenting disease/condition affected by chronic disease/condition?: exacerbated by Evaluation data The following diagnostics were reviewed and interpreted by me:: radiology exam(s) Lab and/or radiology exams considered but not ordered:: None Interpretation Summary: See results [facility] Medications / Prescriptions Medications or Prescriptions considered but not ordered:: None Medication administrations:: Medication Administration History Discontinued Medications Ketorolac Tromethamine (Ketorolac Inj 60 Mg/2 Ml Vial) 30 mg IM X1 ONE Stop: 09/25/24 20:40 Last Admin: 09/25/24 21:00 Dose: 30 mg Documented By: Toradol IM Consultations Consultation(s) initiated? (list below): No Diagnosis Extremity Injury, Lower Differential Diagnosis: ankle sprain and strain and ankle fracture Most likely diagnosis given after review of the tests above:: Foot contusion Admission Indicated Admission indicated?: not indicated Explain why admission is indicated or not indicated:: Stable Admission Request Was there a request for admission?: No Disposition Plan Disposition Plan: Discharge Discharge Attestation Discharge Attestation: The patient and all family members were given an opportunity to ask questions and understood the discharge instructions. Discharge instructions specifically effects, indications for sooner follow up or return to the emergency department, and the expected course of current diagnosis. Patient condition: Stable Discharge Plan Plan Patient Disposition: HOME (Self Care) Discharge Disposition comment: Stable Prescriptions/Referrals Prescriptions/Med Rec: New acetaminophen-codeine 300-30 mg tablet 1 tab PO Q8H PRN (Reason: pain) Qty: 20 0RF No Action amlodipine 5 mg tablet 5 mg PO QDAY Patient Comments: take 1 tablet by mouth once daily omeprazole 40 mg capsule,delayed release(DR/EC) 20 mg PO QDAY Patient Comments: take 1 capsule by mouth 30 MINUTES PRIOR TO BREAKFAST once daily albuterol sulfate [Ventolin HFA] 90 mcg/actuation Hfa Aerosol Inhaler 2 puff INHALATION Q4H PRN (Reason: Shortness Of Breath Or Wheezing) nitroglycerin [Nitrostat] 0.3 mg Tablet, Sublingual 0.3 mg BUCCAL [id number] PRN (Reason: Chest Pain) aspirin [Aspirin Childrens] 81 mg Tablet,Chewable 81 mg PO QDAY furosemide [Lasix] 20 mg Tablet 20 mg PO QDAY acetaminophen 500 mg Tablet 500 mg PO Q6H PRN (Reason: Pain) insulin lispro 100 unit/mL Insulin Pen 40 unit SUBCUT TID ibuprofen 800 mg tablet 800 mg PO TID PRN (Reason: pain) Qty: 30 0RF acetaminophen-codeine 300-30 mg tablet 2 tab PO Q8H MDD 6 PRN (Reason: pain) Qty: 20 0RF Referrals: No Primary/Family,Physician [Primary Care Provider] - In 1 week Problem List Clinical Impression: Contusion of foot Patient/Caregiver Discharge Instructions Discharge Activity: activity as tolerated Education Materials: ED Contusion, Lower Extremity Additional Instructions: Thank you for the opportunity for serving you today. You are stable for discharged . You are advised to: Follow-up with your PCP in 1 to 2 days Return to ED for worsening of symptoms Increase oral fluids Take medication as prescribed Ambulate with crutches as needed Print Language: Kyrgyz Stand Alone Forms: Kami Award Info., Patient Portal Info Letter PA/MARQUIS Supervising Physician PA/MARQUIS Supervising Physician: MD Jethro
[2024-09-25] MEDS: KETOROLAC INJ 60 MG/2 ML VIAL 30 MG IM (21:00)
== END 2024-09-25 23:21 | disposition home or self-care (01) ==
PROVIDERS: Emergency Provider Emergency Medicine
DX: S92.512A Displaced fracture of proximal phalanx of left lesser toe(s), initial encounter for closed fracture (principal); S90.32XA Contusion of left foot, initial encounter; X58.XXXA Exposure to other specified factors, initial encounter
CPT/HCPCS: 73630; 96372; 99283; J1885

== ENCOUNTER 2024-12-13 13:26 | Inpatient (IN) | payer MEDICAID, SELFPAY ==
[2024-12-13] VITALS (55 sets, daily range): BP systolic 127–178; BP diastolic 55–106; PULSE 62–88; RESP 4–95; TEMP 36.7–37; O2SAT 88–99; BMI 55.5; BMI 56.5
--- NOTE | 2024-12-13 13:39 | XR_ITS ---
Examination: CTA carotids with intravenous contrast CTA brain, head with intravenous contrast. 2-D sagittal, coronal reconstructions. 3-D reconstructions. Exam date and time: December 13, 2024, 1405 hrs. Indications: Stroke alert, onset focal neurologic deficit today CTDI: vol (mGy) 32.1 DLP: (mGycm) 472 Technique: Multiple CTA axial brain, head carotid images post intravenous contrast injection 100 cc, [id number]. 2-D sagittal, coronal reconstructions. 3-D reconstructions, 3-D post processing including vascular maximum intensity projection images. Low dose protocols were performed. One or more of the following dose reduction techniques were used; automated exposure control, adjustment of the mA and/or KV according to patient size, use of iterative reconstruction technique. Findings: No significant common carotid carotid bifurcation or internal carotid artery stenoses Essentially codominant vertebral arteries in the neck with no critical stenoses No cerebral large vessel arterial occlusions thrombus dissection or cerebral aneurysm Impression: No significant neck arterial stenoses No cerebral large vessel arterial occlusions or thrombus
--- NOTE | 2024-12-13 13:39 | XR_ITS ---
Examination: CT brain head without contrast. 2-D sagittal coronal reconstructions Date and time of exam: December 13, 2024, 1347 hrs. Indications: Stroke alert, onset focal neurologic deficit today CTDI: vol (mGy):53.3 DLP: (mGycm):991 Technique: Multiple CT axial sections of the brain have been obtained, 5 mm slice thickness. Contrast has not been administered. 2-D sagittal, coronal reconstructions have been obtained Low dose protocols were performed. One or more of the following dose reduction techniques were used; automated exposure control, adjustment of the mA and/or KV according to patient size, use of iterative reconstruction technique. Findings: No significant ventricular enlargement. Intra-axial or extra-axial hemorrhage density is not seen. No mass effect or midline shift Basal cisterns are not remarkable. Fourth ventricle is midline. Cranial vault intact. Impression: Negative for acute hemorrhage, mass effect or midline shift
[2024-12-13 14:05] LABS: Basophils # (Auto) 0.1 Thou/mm3 (0.0-0.2); Basophils % (Auto) 1 % (0-2.5); Eosinophils # (Auto) 0.4 Thou/mm3 (0.0-0.5); Eosinophils % (Auto) 3 % (0-10); Hematocrit 40.7 % (36.0-46.0); Hemoglobin 13.1 g/dL (12.0-16.0); Immature Granulocytes Auto 0.04 Thou/mm3 (0.00-0.00); Lymphocytes # (Auto) 3.8 Thou/mm3 (1.0-4.8); Lymphocytes % (Auto) 33 % (10-50); Mean Corpuscular HGB Conc 32.2 g/dl (31.0-37.0); Mean Corpuscular Hemoglobin 25.9 pg (25.0-35.0); Mean Corpuscular Volume 81 fL (80-100); Monocytes # (Auto) 0.7 Thou/mm3 (0.0-0.8); Monocytes % (Auto) 6 % (0-12); Neutrophils # (Auto) 6.6 Thou/mm3 (1.8-7.7); Neutrophils % (Auto) 57 % (37-80); Nucleated Red Blood Cell # 0.00 Thou/mm3 (0.00-0.00); Nucleated Red Blood Cell % 0 /100 WBC (0); Platelet Count 248 Thou/mm3 (140-440); RDW Standard Deviation 48.1 fL (36.4-46.3); Red Blood Count 5.05 Miln/mm3 (4.00-5.20); White Blood Count 11.5 Thou/mm3 (3.6-11.0)
[2024-12-13] MEDS: TENECTEPLASE INJ 50 MG VIAL 25 MG IV (14:13)
--- NOTE | 2024-12-13 14:17 | EKG_ITS ---
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
--- NOTE | 2024-12-13 14:26 | ESCONSULT_ITS ---
Tele Neuro Consultation Consultation Date 12/13/24 Most Recent Vital Signs Last Vital Signs Temp 98.6 F 12/13/24 13:31 Pulse 81 12/13/24 13:39 Resp 20 12/13/24 13:31 BP 165/93 H 12/13/24 13:31 Pulse Ox 96 12/13/24 13:31 O2 Del Method Room Air 12/13/24 13:31 Consultation Narrative [facility] Tele[facility]urology Consult [facility] Patient Name:???Camila Becker Date of :???1980 Identification Number:??? Date of Service:???12/13/2024 13:40:59 Diagnosis:?I63.89 - Cerebrovascular accident (CVA) due to other mechanism ([facility]) Impression: ?Mrs. Becker is a 44 year old female with multiple vascular risk factors who presents with the acute onset of right sided weakness, visual difficulties and language changes. NIHSS currently 9. CT Head negative for hemorrhage. Symptoms started at noon. The patient is within the window for thrombolytic therapy. Risks, benefits and contraindications were reviewed with the patient. The patient agreed to treatment. TNK was given without immediate complication. CTA was performed and no obvious LVO on personal review. At this point I would recommend admission for further care per thrombolytic protocol. Our recommendations are outlined below. Recommendations: IV Tenecteplase recommended. I confirmed the following. (Patient name, , MRN, Blood Pressure, dose of Thrombolytic and waste, weight completed by stretcher/scale not stated weight, have ED staff inform ED MD of thrombolytic decision) Thrombolytic bolus given Without Complication. IV Tenecteplase Total Dose ? 25.0 mg (Dose Rounding Per Facility Protocol) Routine post Thrombolytic monitoring including neuro checks and blood pressure control during/after treatment Monitor blood pressure Check blood pressure and neuro assessment every 15 min for 2 h, then every 30 min for 6 h, and finally every hour for 16 h. Manage Blood Pressure per post Thrombolytic protocol. ? Follow designated hospital protocol for admission and post thrombolytic care ? CT brain 24 hours post Thrombolytic ? NPO until swallowing screen performed and passed ? No antiplatelet agents or anticoagulants (including heparin for DVT prophylaxis) in first 24 hours ? No [place] catheter, nasogastric tube, arterial catheter or central venous catheter for 24 hr, unless absolutely necessary ? Telemetry ? Bedside swallow evaluation ? HOB less than 30 degrees ? Euglycemia ? Avoid hyperthermia, PRN acetaminophen ? DVT prophylaxis ? Inpatient Neurology Consultation ? Stroke evaluation as per inpatient neurology recommendations Discussed with ED physician Advanced Imaging:Advanced imaging has been ordered. Results pending. Metrics: Last Known Well: 12/13/2024 12:00:00 Dispatch Time: 12/13/2024 13:40:59 Arrival Time: 12/13/2024 13:26:00 Initial Response Time: 12/13/2024 13:44:08Symptoms: right sided weakness and difficulty speaking. . Initial patient interaction: 12/13/2024 13:48:22 NIHSS Assessment Completed: 12/13/2024 13:54:57Patient is a candidate for Thrombolytic. Thrombolytic Medical Decision: 12/13/2024 13:58:21 Needle Time: 12/13/2024 14:13:08Weight Noted by Staff: 127.[address] Head: I personally reviewed all the CT images that were available to me and it showed: no evidence of hemorrhage. Images were unavailable to me at the time of the exam, and I personally reviewed the study with attending radiologist. Primary Provider Notified of Diagnostic Impression and Management Plan on: 12/13/2024 14:15:41 Thrombolytic Contraindications: Last Known Well > 4.5 hours:?No CT Head showing hemorrhage:?No Ischemic stroke within 3 months:?No Severe head trauma within 3 months:?No Intracranial/intraspinal surgery within 3 months:?No History of intracranial hemorrhage:?No Symptoms and signs consistent with an SAH:?No GI malignancy or GI bleed within 21 days:?No Coagulopathy: Platelets <100 000 /mm3, INR >1.7, aPTT>40 s, or PT >15 s:?No Treatment dose of LMWH within the previous 24 hrs:?No Use of NOACs in past 48 hours:?No Glycoprotein IIb/IIIa receptor inhibitors use:?No Symptoms consistent with infective endocarditis:?No Suspected aortic arch dissection:?No Intra-axial intracranial neoplasm:?No Thrombolytic Decision and Management Plan: Management with thrombolytic treatment was explained to the Patient as was risks and benefits and alternatives to the treatment. Patient agrees with the decision to proceed with thrombolytic treatment. . All questions were answered and the Patient expressed understanding of the treatment plan. History of Present Illness:Patient is a 44 year old Female. Patient was brought by private transportation with symptoms of right sided weakness and difficulty speaking. . The patient reports that she woke up normally today. She reports that she didn't feel well. She developed a headache. She then noticed that she could not talk. She had trouble remembering words. After this her right side felt strangely. She had some difficulty moving the arm. She feels that this all started at the same time. She is feeling better, but she is feeling tired. ? Past Medical History: ?Hypertension ?Hyperlipidemia ?Coronary Artery Disease Other PMH:? COPD Medications: No Anticoagulant use? No Antiplatelet use Reviewed EMR for current medications Allergies:? Reviewed Social History: Smoking: No Alcohol Use: No Family History: There is no family history of premature cerebrovascular disease pertinent to this consultation ROS : 14 Points Review of Systems was performed and was negative except mentioned in HPI. Past Surgical History: There Is No Surgical History Contributory To Today?s Visit ? Examination: BP(169/95),?Pulse(88),?Blood Glucose(122) 1A: Level of Consciousness - Alert; keenly responsive?+ 0 1B: Ask Month and Age - Could Not Answer Either Question Correctly?+ 2 1C: Blink Eyes & Squeeze Hands - Performs Both Tasks?+ 0 2: Test Horizontal Extraocular Movements - Normal?+ 0 3: Test Visual Vega - Complete Hemianopia?+ 2 4: Test Facial Palsy (Use Grimace if Obtunded) - Normal symmetry?+ 0 5A: Test Left Arm Motor Drift - No Drift for 10 Seconds?+ 0 5B: Test Right Arm Motor Drift - Drift, but doesn't hit bed?+ 1 6A: Test Left Leg Motor Drift - No Drift for 5 Seconds?+ 0 6B: Test Right Leg Motor Drift - Drift, but doesn't hit bed?+ 1 7: Test Limb Ataxia (FNF/Heel-Mclean) - No Ataxia?+ 0 8: Test Sensation - Mild-Moderate Loss: Less Sharp/More Dull?+ 1 9: Test Language/Aphasia - Mild-Moderate Aphasia: Some Obvious Changes, Without Significant Limitation?+ 1 10: Test Dysarthria - Mild-Moderate Dysarthria: Slurring but can be understood?+ 1 11: Test Extinction/Inattention - No abnormality?+ 0 NIHSS Score:?9 Pre-Morbid Modified Wil Scale: 0 Points = No symptoms at all Spoke with :?Dr. Maldonado, ED physician This consult was conducted in real time using interactive audio and video technology. Patient was informed of the technology being used for this visit and agreed to proceed. Patient located in hospital and provider located at home/office setting. Patient is being evaluated for possible acute neurologic impairment and high probability of imminent or life-threatening deterioration. I spent total of 50 minutes providing care to this patient, including time for face to face visit via telemedicine, review of medical records, imaging studies and discussion of findings with providers, the patient and/or family. Dr Brielle Dimas [facility] For Inpatient follow-up with [facility] physician please call [facility] at . As we are not an outpatient service for any post hospital discharge needs please contact the hospital for assistance. If you have any questions for the [facility] physicians or need to reconsult for clinical or diagnostic changes please contact us via [facility] at . Signature :?Brielle Dimas ?
[2024-12-13 14:27] LABS: INR 1.1 (0.9-1.3); Partial Thromboplastin Time 23.9 Seconds (22.0-36.0); Prothrombin Time 11.9 Seconds (9.0-12.2)
[2024-12-13 14:42] LABS: Alanine Aminotransferase 87 U/L (10-49); Albumin, Serum 4.1 gm/dL (3.5-5.0); Albumin/Globulin Ratio 1.5 (1.2-2.2); Alcohol, Blood Medical < 3.0 mg/dL (0-10.0); Alkaline Phosphatase 111 U/L (46-116); Anion Gap 10 (7-16); Aspartate Amino Transferase 76 U/L (0-34); BUN/Creatinine Ratio 16 Ratio (12-20); Bilirubin,Total 0.2 mg/dL (0.3-1.2); Blood Urea Nitrogen 11 mg/dL (9-23); Calcium 9.6 mg/dL (8.3-10.6); Calcium (Corrected) 9.6 mg/dL (8.5-10.1); Carbon Dioxide 29.3 mMol/L (20.0-31.0); Chloride 103 mMol/L (98-107); Creatinine (Component) 0.7 mg/dL (0.6-1.3); Estimated Creatinine Clearance 121.9 mL/min (>60); Globulin 2.7 gm/dL (2.3-3.5); Glucose 130 mg/dL (74-106); Magnesium 1.7 mg/dL (1.6-2.6); Osmolality,Calculated 284 (275-295); Potassium 3.8 mMol/L (3.4-5.1); Sodium 142 mMol/L (136-145); Total Protein 6.8 gm/dL (5.7-8.2); Troponin I < 0.020 ng/mL (0.0-0.045); eGFR > 60 See Note
--- NOTE | 2024-12-13 14:43 | PD.EDWEAK ---
ED Weakness RME/HPI General Chief complaint: General Adult/Misc Complain Stated complaint: CONFUSED, JULIEN SINCE NOON Time Seen by Provider: 12/13/24 13:31 Arrival date/time: 12/13/24 13:26 Limitations: no limitations RME / HPI RME / HPI Narrative: Patient is a 44-year-old female with onset of right-sided weakness both the upper and lower extremity. The upper extremity weakness is worse than the lower extremity weakness. She complains of visual difficulty, slurred speech. She is having some difficulty with word finding and so was slow to form thoughts. She has no prior history of CVA. She has multiple vascular risk factors. Her family history is strong for in terms of mother and father with history of stroke and ND at an early age. Onset (ago): hour(s) (Onset was 1 hour and 35 minutes ago) Duration: constant Location: RUE and RLE Migration: none Severity: severe Severity scale (1-10): 10 Relieving factors: none Exacerbating factors: movement and exertion Associated symptoms: other (Headache) Related Data Home Medications ?Medication ?Instructions ?Recorded ?Confirmed amlodipine 5 mg tablet 5 mg PO QDAY 01/20/23 10/12/23 omeprazole 40 mg capsule,delayed 20 mg PO QDAY 01/20/23 10/12/23 release albuterol sulfate 90 mcg/actuation 2 puff inhalation Q4H PRN 06/26/23 10/12/23 aerosol inhaler (Ventolin HFA) Shortness Of Breath Or Wheezing aspirin 81 mg chewable tablet 81 mg PO QDAY 10/02/23 10/12/23 (Aspirin Childrens) furosemide 20 mg tablet (Lasix) 20 mg PO QDAY 10/02/23 10/12/23 nitroglycerin 0.3 mg sublingual 0.3 mg buccal [id number] PRN Chest 10/02/23 10/12/23 tablet (Nitrostat) Pain acetaminophen 500 mg tablet 500 mg PO Q6H PRN Pain 10/12/23 10/12/23 insulin lispro 100 unit/mL 40 unit subcut TID 10/12/23 10/12/23 subcutaneous pen Previous Rx's ?Medication ?Instructions ?Recorded ibuprofen 800 mg tablet 800 mg PO TID PRN pain #30 tabs 02/09/24 acetaminophen 300 mg-codeine 30 mg 2 tab PO Q8H PRN pain #20 tabs 06/24/24 tablet acetaminophen 300 mg-codeine 30 mg 1 tab PO Q8H PRN pain #20 tabs 09/25/24 tablet Allergies Allergy/AdvReac Type Severity Reaction Status Date / Time cephalexin Allergy Severe Rash Verified 09/25/24 18:52 clindamycin Allergy Severe Hives Verified 09/25/24 18:52 sulfamethoxazole Allergy Severe RASH TO Verified 09/25/24 18:52 BODY trimethoprim Allergy Severe RASH TO Verified 09/25/24 18:52 BODY Penicillins Allergy Intermediate Hives Verified 09/25/24 18:52 Review of Systems Review of Systems Systems Reviewed: All systems reviewed, normal except as documented Past Medical History Past Medical History NEUROLOGIC: Negative Neurological Disorders or Seizures CARDIAC: Positive Cardiac Disorders, Myocardial Infarction, Coronary Artery Disease and Hypertension; Negative Congestive Heart Failure RESPIRATORY: Positive Asthma and Sleep Apnea; Negative Chronic Obstructive Pulmonary Disease (COPD) GASTROINTESTINAL: Positive Gastrointestinal Disorders, Gastroesophageal Reflux Disease and Obesity; Negative Hepatitis GENITOURINARY: Negative Genitourinary Disorders or Renal Disease REPRODUCTIVE: Positive Previous Pregnancies MUSCULOSKELETAL: Negative Musculoskeletal Disorders ENT: Positive Ear Infection and Deafness ENDOCRINE: Positive Endocrine Disorders and Diabetes Mellitus Type 2; Negative Diabetes Mellitus Type 1 HEMATOLOGIC: Positive Clotting Problems; Negative Blood Disorders or Sickle Cell Disease PSYCHO/SOCIAL: Positive Depression and Anxiety OTHER HISTORY: Positive Hospitalization, Blood Transfusions, Chemotherapy, Chicken Pox and Cancer; Negative Autoimmune Disease, Shingles, Blood Transfusion Reaction or Anesthesia Reactions Family History FAMILY HISTORY: Positive Family Respiratory Disorders, Family Cardiac Disorders, Family Cancer and Family Surgery; Negative Family Psychiatric Problems, Family Gastrointestinal Problems or Family Anesthesia Reaction Surgical History SURGICAL: Positive Angiogram, Abdominal Surgery, Hysterectomy, Tubal Ligation and Section; Negative Cardiac Surgery or Endocrine Surgery Social History SMOKING STATUS: Never smoker SECOND HAND EXPOSURE: Yes ED Exam General Limitations: Present no limitations General appearance: Present alert Head Head exam: Present atraumatic and normocephalic Eye Eye exam: Present normal appearance, PERRL and EOMI ENT ENT exam: Present normal exam, normal oropharynx and mucous membranes moist Neck Neck exam: Present normal inspection, full ROM and trachea midline Chest Chest inspection: Present normal inspection and symmetric chest wall rise Respiratory Respiratory exam: Present normal lung sounds bilaterally Cardiovascular Cardiovascular exam: Present regular rate and normal rhythm Abdominal Exam Abdominal exam: Present soft and normal bowel sounds Rectal Exam Rectal exam: Present deferred Extremities Exam Extremities exam: Present normal inspection Back Exam Back exam: Present normal inspection Neurological Exam Neurological exam: Present alert, oriented X3 and CN II-XII intact (Right facial droop) Expanded Neurological Exam Patient oriented to: Present person, place and time Speech: Present expressive aphasia Cranial nerves: Normal: EOM function (II, III, IV, ), facial sensation (V), gag reflex (IX), spinal accessory function (XI) and tongue deviation (XII) and Abnormal Right: facial palsy (VII) Cerebellar function: Normal: finger to nose and Abnormal Right: heel to sanchez Motor strength - LUE: 5/5 Motor strength - RUE: 3/5 Motor strength - LLE: 5/5 Motor strength - RLE: 4/5 Upper motor neuron exam: Normal: pronator drift, Babinski sign and sensory extinction and Abnormal Right: nola neglect Sensory exam upper extremity: Normal: light touch, pin prick, temperature and 2 point discrimination Coma scale eye opening: spontaneous Coma scale motor response: obeys commands Coma scale verbal response: oriented Coma scale total: 15 Psychiatric Psychiatric exam: Present normal affect and normal mood Skin Skin exam: Present warm and dry Course Course Course Narrative: Patient was admitted to the emergency department room 3. Telemetry neurology was called and evaluated the patient. Determination was made to give the patient tPA. She tolerated it well with no adverse event Quality Measures Suspected type of Stroke: Acute Ischemic Tenecteplase given: within 60 min of arrival stroke Orders Category Date Time Status Admit to Inpatient Status Routine Admission 12/13/24 15:13 Active Patient Condition Routine Admission 12/13/24 15:12 Ordered Bedside Blood Glucose NOW Care 12/13/24 13:39 Active COVID-19 Screening Questionnaire NOW Care 12/13/24 15:06 Active Peanut Sorter NOW Care 12/13/24 13:39 Active Peanut Sorter now Care 12/13/24 15:18 Active Continuous Pulse Oximetry NOW Care 12/13/24 13:39 Completed Continuous Pulse Oximetry QSHIFT Care 12/13/24 15:18 Active Decision to Admit X1 Care 12/13/24 15:06 Completed EKG (ED ONLY) *Do not use* NOW Care 12/13/24 14:17 Completed Insert IV NOW Care 12/13/24 13:39 Active NIH Stroke Scale Q4HX8,QSHIFT Care 12/13/24 14:14 Active NIH Stroke Scale now Care 12/13/24 13:39 Active NPO NOW Care 12/13/24 13:39 Active NPO NOW Care 12/13/24 15:14 Active Neuro Check Q15M Care 12/13/24 14:14 Active Neuro Check Q15MIN Care 12/13/24 13:39 Active Notify provider NEEDED Care 12/13/24 15:12 Active Notify provider NEEDED Care 12/13/24 15:13 Active Notify provider NEEDED Care 12/13/24 15:18 Active Nurse Swallow Screen x1 Care 12/13/24 13:39 Active Nurse Swallow Screen x1 Care 12/13/24 15:18 Active Seizure precautions NEEDED Care 12/13/24 15:13 Active Vital Signs Q15M Care 12/13/24 14:04 Active Consult to Neurology / Tele-Neurology Routine Cons 12/13/24 13:39 Active Consult to Neurology / Tele-Neurology Routine Cons 12/13/24 15:18 Active Diet NPO (NOW) Diet 12/13/24 15:14 Completed Diet NPO (NOW) Diet 12/13/24 15:18 Active CA echo doppler complete Routine Exams 12/13/24 15:[address] angio stroke protocol Stat Exams 12/13/24 13:[address] stroke protocol Stat Exams 12/13/24 13:39 Completed EKG (ED Only) Stat Exams 12/13/24 14:17 Draft MR stroke protocol brain wwo with MRA head and neck Exams 12/13/24 Ordered Stat Alcohol, Blood Medical Stat Lab 12/13/24 13:48 Completed B-Type Natriuretic Peptide Stat Lab 12/13/24 13:48 Completed Basic Metabolic Panel AM DRAW Lab 12/14/24 05:00 Ordered Basic Metabolic Panel AM DRAW Lab 12/15/24 05:00 Ordered Basic Metabolic Panel AM DRAW Lab 12/16/24 05:00 Ordered CBC AM DRAW Lab 12/14/24 05:00 Ordered CBC AM DRAW Lab 12/15/24 05:00 Ordered CBC AM DRAW Lab 12/16/24 05:00 Ordered CBC Stat Lab 12/13/24 13:48 Completed Comprehensive Metabolic Panel Stat Lab 12/13/24 13:48 Completed Drug Screen,Urine Stat Lab 12/13/24 13:39 Ordered Hemoglobin A1C [Glycohemoglobin w (eAG)] AM DRAW Lab 12/14/24 05:00 Ordered Lipid Panel AM DRAW Lab 12/14/24 05:00 Ordered Magnesium AM DRAW Lab 12/14/24 05:00 Ordered Magnesium AM DRAW Lab 12/15/24 05:00 Ordered Magnesium AM DRAW Lab 12/16/24 05:00 Ordered Magnesium Stat Lab 12/13/24 13:48 Completed Partial Thromboplastin Time Stat Lab 12/13/24 13:48 Completed Prothrombin Time with INR Stat Lab 12/13/24 13:48 Completed Thyroid Stimulating Hormone AM DRAW Lab 12/14/24 05:00 Ordered Troponin I Stat Lab 12/13/24 13:48 Completed Urinalysis Stat Lab 12/13/24 13:39 Ordered Acetaminophen Supp [Tylenol Supp] Med 12/13/24 15:12 Ordered 650 mg IL Q6HR PRN Albuterol/Ipratr Rt Vijaya [Duoneb Rt Vijaya] Med 12/13/24 15:12 Ordered 3 ml INH Q2HR PRN Labetalol IV [Trandate IV] Med 12/13/24 13:59 Active 10 mg IVP PRNMRX1 PRN Labetalol IV [Trandate IV] Med 12/13/24 13:59 Discontinued 10 mg IVP PRNMRX1 PRN Nicardipine/Ns 20Mg Ivpb [Cardene Ivpb] Med 12/13/24 13:59 Active 20 mg in 200 ml IV 5 mg/hr Ondansetron Inj [Zofran Inj] Med 12/13/24 15:12 Ordered 4 mg IVP Q4HR PRN Sodium Chloride 0.9% 1000 ml [Ns] 1,000 ml Med 12/13/24 13:45 Active IV Q10H Tenecteplase Inj [TNKase Inj] Med 12/13/24 14:01 Discontinued 25 mg IV X1 ONE Code Status Routine Oth 12/13/24 15:12 Ordered Oxygen Delivery NOW RT 12/13/24 15:18 Active Oxygen Delivery PRN RT 12/13/24 15:12 Active Referral Senior Animator NOW SS 12/13/24 15:18 Active Reevaluation(s) Reevaluation #1: Patient's status post tenecteplase. She has had mild improvement of her right-sided weakness. She is stable with no complications from the tenecteplase Time: 14:30 Vital Signs Vital signs: Vital Signs Temperature 98.6 F 12/13/24 13:31 Pulse Rate 88 12/13/24 13:31 Respiratory Rate 20 12/13/24 13:31 Blood Pressure 165/93 H 12/13/24 13:31 Pulse Oximetry (%) 96 12/13/24 13:31 Oxygen Delivery Method Room Air 12/13/24 13:31 Weakness MDM Narrative MDM Narrative:: 44-year-old female with acute onsets onset at 12 PM of right-sided weakness. She was evaluated by neurology and tenecteplase was given. No adverse effects and some benefit over the first half hour. Patient will be admitted to the hospital for further workup and evaluation for her CVA. Patient data External records reviewed:: [facility] previous records Clinical information provided by:: patient Social determinants that could affect healthcare access:: none Patient has the following chronic illnesses:: Diabetes and hypertension How is presenting disease/condition affected by chronic disease/condition?: exacerbated by Evaluation data The following diagnostics were reviewed and interpreted by me:: lab results, radiology exam(s) and EKG tracing(s) Lab and/or radiology exams considered but not ordered:: CT brain showed no bleed. CT angio head and neck with no LVO. Interpretation Summary: See above EKG December 13, 2024 at 1421 hrs. shows sinus rhythm rate 81 low QRS voltage in the precordial leads, poor R wave progression, no acute ST-T wave changes, IL interval 143 ms QRS duration 97 ms Medications / Prescriptions Medications or Prescriptions considered but not ordered:: None Medication administrations:: Medication Administration History Acetaminophen (Acetaminophen Supp 650 Mg Supp) 650 mg IL Q6HR PRN PRN Reason: Fever > 100 or pain Stop: 01/12/25 15:11 Albuterol/Ipratropium (Albuterol/Ipratropium (Duoneb) Rt Vijaya 3 Ml Nebu) 3 ml INH Q2HR PRN PRN Reason: SHORTNESS OF BREATH OR WHEEZE Stop: 01/12/25 15:11 Sodium Chloride (Ns) 1,000 mls @ 50 mls/hr IV Q10H MEENU Stop: 01/12/25 13:44 Last Admin: 12/13/24 14:46 Dose: 50 mls/hr Documented By: DB Nicardipine/Sodium Chloride (Cardene Ivpb) 20 mg in 200 mls @ 50 mls/hr IV .Q4H PRN; Protocol PRN Reason: Per Nicardipine Stroke Protocol Stop: 01/12/25 13:58 Labetalol HCl (Labetalol Inj 5 Mg/Ml Vial 20 Ml) 10 mg IVP PRNMRX1 PRN PRN Reason: SBP > 185 mmHg and/or DBP > 110 Ondansetron HCl (Ondansetron Inj 2 Mg/Ml Inj 2 Ml) 4 mg IVP Q4HR PRN PRN Reason: NAUSEA OR VOMITING Stop: 01/12/25 15:11 Discontinued Medications Labetalol HCl (Labetalol Inj 5 Mg/Ml Vial 20 Ml) 10 mg IVP PRNMRX1 PRN PRN Reason: SBP > 180 mmHg or DBP > 105 Tenecteplase (Tenecteplase Inj 50 Mg Vial) 25 mg IV X1 ONE Stop: 12/13/24 14:02 Last Admin: 12/13/24 14:13 Dose: 25 mg Documented By: MALICK Co-signed By: ANAHI Comments: med pushed by alexandria PONCE See above medications Consultations Consultation(s) initiated? (list below): Yes Consultation #1 (Physician, Specialty, Details): Dr. Hernandez of neurology Time: 13:31 Diagnosis Weakness Differential Diagnosis: other (Acute CVA) Most likely diagnosis given after review of the tests above:: Acute CVA Admission Indicated Admission indicated?: indicated Admission Request Was there a request for admission?: Yes Admission Attestation Admission request attestation: Discussed case with [] from Hospitalist service regarding admission. Discussed patients ED course, exam findings, labs, and radiology results. The Hospitalist [agrees,declines] to accept the patient for admission. Disposition Plan Disposition Plan: Admit Critical Care Time Critical Care Time Critical Care Time: Yes (Supervision of TNK administration and stroke evaluation) Total Critical Care Time (min.): 60 Attestation: The high probably ability of sudden, clinically significant deterioration in the patient's condition required the highest level of preparedness to intervene urgently. The services I provided the patient were to treat and or prevent clinically significant deterioration. Services including the following chart data review, reviewing nursing notes and old charts, documentation time, call center support consultant collaboration regarding findings and treatment options, medication orders and management, direct patient care vital sign assessment and ordering, interpreting and reviewing diagnostic studies and lab tests. Aggregate critical care time includes only time during which I was engaged in work directly related to the patient's care as described above whether at the bedside or elsewhere in the emergency department department and excludes all other procedures. Discharge Plan Plan Patient Disposition: Admit Acute Care w/in Hospital Prescriptions/Referrals Prescriptions/Med Rec: No Action amlodipine 5 mg tablet 5 mg PO QDAY Patient Comments: take 1 tablet by mouth once daily omeprazole 40 mg capsule,delayed release(DR/EC) 20 mg PO QDAY Patient Comments: take 1 capsule by mouth 30 MINUTES PRIOR TO BREAKFAST once daily albuterol sulfate [Ventolin HFA] 90 mcg/actuation Hfa Aerosol Inhaler 2 puff INHALATION Q4H PRN (Reason: Shortness Of Breath Or Wheezing) nitroglycerin [Nitrostat] 0.3 mg Tablet, Sublingual 0.3 mg BUCCAL [id number] PRN (Reason: Chest Pain) aspirin [Aspirin Childrens] 81 mg Tablet,Chewable 81 mg PO QDAY furosemide [Lasix] 20 mg Tablet 20 mg PO QDAY acetaminophen 500 mg Tablet 500 mg PO Q6H PRN (Reason: Pain) insulin lispro 100 unit/mL Insulin Pen 40 unit SUBCUT TID ibuprofen 800 mg tablet 800 mg PO TID PRN (Reason: pain) Qty: 30 0RF acetaminophen-codeine 300-30 mg tablet 2 tab PO Q8H MDD 6 PRN (Reason: pain) Qty: 20 0RF acetaminophen-codeine 300-30 mg tablet 1 tab PO Q8H PRN (Reason: pain) Qty: 20 0RF Problem List Clinical Impression: Acute cerebrovascular accident (CVA), Diabetes mellitus, Accelerated hypertension Patient/Caregiver Discharge Instructions Print Language: Lao Stand Alone Forms: Kami Award Info., Patient Portal Info Letter
[2024-12-13] MEDS: SODIUM CHLORIDE 0.9% 1000 ML 1,000 ML 50 ML IV (14:46)
[2024-12-13 14:50] LABS: B-Type Natriuretic Peptide < 20 pg/mL (0-100)
--- NOTE | 2024-12-13 15:16 | ECHO_ITS ---
Transthoracic Echo Report Ht (in): 59 Wt (lb): 281 Exam Location: Echo Lab Status: Emergency Industrial Organizational Psychologist: Mariam Sierra Indications: Procedure Performed: BP: 152 / 87 HR: 69 Technical Quality: Technically difficult study MEASUREMENTS (Male / Female) Normal Values 2D ECHO LVOT Diameter 1.6 cm Aortic Root Diameter 3.0 cm LA Systolic Diameter LX 3.2 cm 3.0 - 4.0 / 2.7 - 3.8 cm LV Ejection Fraction MOD BP 52.0 % >= 55 % LV Cardiac Index MOD BP 1617.7 cm?/min?m? LV Ejection Fraction MOD 4C 47.4 % LV Cardiac Index MOD 4C 1419.1 cm?/min?m? LV Ejection Fraction 4C AL 47.1 % LV Cardiac Index 4C AL 1455.0 cm?/min?m? LV Ejection Fraction MOD 2C 56.5 % LV Cardiac Index MOD 2C 1804.8 cm?/min?m? LV Ejection Fraction 2C AL 58.3 % LV Cardiac Index 2C AL 1896.6 cm?/min?m? LA Volume Index 13.7 cm?/m? 16 - 28 cm?/m? Ascending Aorta Diameter 3.3 cm M-MODE Aortic Root Diameter MM 2.1 cm LA Systolic Diameter MM 3.7 cm LA Ao Ratio MM 1.8 AV Cusp Separation MM 1.7 cm DOPPLER AV Peak Velocity 155.0 cm/s AV Peak Gradient 9.6 mmHg AV Mean Gradient 5.0 mmHg AV Velocity Time Integral 36.2 cm LVOT Peak Velocity 105.0 cm/s LVOT Peak Gradient 4.4 mmHg LVOT Velocity Time Integral 26.8 cm LVOT Cardiac Index 1551.1 cm?/min?m? AV Area Cont Eq vti 1.5 cm? AV Area Cont Eq pk 1.4 cm? MV Area PHT 2.5 cm? Mitral E Point Velocity 102.0 cm/s Mitral A Point Velocity 121.0 cm/s Mitral E to A Ratio 0.8 LV E' Lateral Velocity 6.9 cm/s Mitral E to LV E' Lateral Ratio 14.9 LV E' Septal Velocity 6.9 cm/s Mitral E to LV E' Septal Ratio 14.9 PV Peak Velocity 84.2 cm/s PV Peak Gradient 2.8 mmHg FINDINGS Left Ventricle Normal left ventricular size, wall thickness, systolic function with no obvious regional wall motion abnormalities.The ejection fraction is visually estimated at 55%. There is grade I diastolic dysfunction of the left ventricle (impaired relaxation pattern). Right Ventricle The right ventricle is normal in size and systolic function. Left Atrium The left atrium is normal by two-dimensional, color flow and Doppler imaging with no structural abnormalities, no thrombus formation present. Right Atrium The right atrium is normal by two-dimensional imaging, color flow and Doppler imaging with no structural abnormalities, no thrombus formation present. Atrial Septum The interatrial septum appears normal with no evidence of a shunt. Aorta The aorta is normal by two-dimensional, color flow and Doppler interrogation. Mitral Valve The mitral valve is normal by two-dimensional, color flow and Doppler interrogation. There is no significant mitral valve regurgitation, stenosis or prolapse. Aortic Valve The aortic valve is trileaflet and normal by two-dimensional, color flow and Doppler interrogation. There is no significant aortic valve regurgitation. Tricuspid Valve The tricuspid valve is normal by two-dimensional, color flow and Doppler interrogation. There is trace tricuspid valve regurgitation. Pulmonic Valve The pulmonic valve is not well visualized. There is no significant pulmonic valve regurgitation. Vessels Dilated inferior vena cava. Pericardium The pericardium is normal by two-dimensional imaging. There is no significant pericardial effusion. CONCLUSIONS Indication: bubble study, assess EF valvular function, wall motion. Bubble study negative for PFO and ASD but overall the images are suboptimal because of her body habitus. Consider NEGRA if high index of clinical suspicion. Normal LV size, wall thickness, Estimated EF at 60-65 %. Mild LVH. Grade I diastolic dysfunction. The RV is normal in size and systolic function. Trace TR. mild aortic valve sclerosis without stenosis. Dilated IVC. No pericardial effusion noted. Shailesh Black (Electronically Signed) Final Date: 14 December 2024 23:38
[2024-12-13 15:33] LABS: Collection Type, Urine Catheter
[2024-12-13 15:39] LABS: Bilirubin,Urine Negative (Negative); Blood,Urine Negative (Negative); Clarity,Urine Clear (Clear/Hazy); Color,Urine Lt-Yellow (Lt Yel-Yel); Glucose, Urine 4+ (Negative); Ketones,Urine Negative (Negative); Leukocyte Esterase,Urine Negative (Negative); Nitrite,Urine Negative (Negative); PH,Urine 7.0 (5.0-7.0); Protein,Urine Negative (Neg - Trace); RBC,Urine 3 /hpf (0-3); Squamous Epithelial Cell,Urine 1 /hpf (0-5); Urobilinogen,Urine Negative mg/dL (0.0-1.0); WBC,Urine < 1 /hpf (0-5)
[2024-12-13 15:45] LABS: Amphetamine/Methamp Scrn,U Negative (Negative); Barbiturate Screen,Urine Negative (Negative); Benzodiazepines Screen,Urine Negative (Negative); Benzoylecgonine Screen, Ur Negative (Negative); Fentanyl Screen,Urine Negative (Negative); Opiate Screen,Urine Negative (Negative); THC Screen,Urine Negative (Negative)
[2024-12-13 15:47] LABS: Specific Gravity,Urine 1.010 (1.001-1.035)
--- NOTE | 2024-12-13 15:53 | ESHP_ITS ---
<Statement entered by Jumana Heard MD - 12/14/24 10:12> TOTAL TIME: 45MINUTES ON DIRECT MEDICAL CARE, MANAGEMENT - COORDINATION AND COUNSELING > 50% OF TOTAL TIME I saw and evaluated the patient. I reviewed the resident?s note and agree with findings and plan as documented in the resident?s note. Post TNK she has had improvement in slurred speech and vision although the right upper extremity and lower extremity remain asymmetrically weak compared to the left with 4 out of 5 strength. Sensation is also still slightly asymmetric with decreased sensation on the right upper and lower extremity. No bleeding complications after receiving TNK, continue to monitor carefully. Repeat CT scan has been scheduled. MRI ordered but likely will not be completed until tomorrow Continue to monitor hemodynamics with blood pressure targets as outlined in the resident's note. If no complications our plan will be to transfer her to the [facility] floor later today Documentation for date of: 12/13/24 HPI History of Present Illness Chief complaint: Right sided- weakness, headache History of present illness: HPI: Patient is a 44-year-old female with a past medical history significant for IDDM type II, primary hypertension, MASLD, hyperlipidemia, SARAH/OHS, history of LLE DVT and anxiety presented today with a chief complaint of right-sided weakness. Patient follows up with hopper operator Dr. Perez in [place]. Around 12 PM today patient reported she was sitting having lunch with her when she began to experience a sudden onset left-sided headache, 10/10 in intensity that continues to persist but now is 5/10 in intensity. No aggravating or relieving factors. She also had sudden onset right-sided weakness including upper and lower limbs and right facial droop as reported by her . She also described a feeling of paresthesia on the right side of her face and had an episode of bowel incontinence. At the same time she reported having blurry vision in her right eye which still persists. Subsequently she was BIBA to the ED. At that time she denied any chest pain/pressure, palpitations, SOB, lower extremity swelling, sick contacts or recent travel. Of note patient stated approximately 3 days ago she had an episode of exertional chest pressure. she just finished making breakfast when she felt her sudden onset central chest pressure which radiated to her left arm and was relieved by sublingual nitroglycerin. Also of note she had an admission in June 2023 for NSTEMI. At that time she underwent left heart catheterization by shoe sewing machine operator and tender, Dr. Black which showed LVEDP severely elevated at 29 mmHg. No significant transvalvular aortic gradient. Left dominant circulation. LAD, LCx and RCA had no significant disease. She also had outpatient nuclear stress test by her hopper operator, Said which she said was abnormal. In the ED patient was reviewed by teleneurology. At the time NIHSS was 9 and the decision to administer TNK was made. TNK was administered at 1413 ED course: BP 165/93, pulse 88, RR 20, temp 98.6 F, SpO2 96% on room air. Labs showed NA 142, K3.8, Mg 1.7, AST 76, ALT87, BNP <20, troponin <0.02 EKG showed low voltage complexes, sinus rhythm, rate 81. QTc 448. No acute ST changes. Head CT and head/neck CTA showed no signs of hemorrhage, mass effect or midline shift or significant arterial stenosis. In the ED patient received tenecteplase 25 mg IV x 1, normal saline 1 L at 50 cc/h, ondansetron 4 mg IV x 1. Patient will be admitted to the ICU for neurochecks s/p TNK administration. Neurology, Dr Li consulted. Appreciate recommendations Review of Systems Review of Systems Narrative Review of Systems: GENERAL: Denies fever/chills or diaphoresis. HEENT: As above Neuro: As above CARDIO: As above PULM: Denies SOB, coughing or wheezing. GI: Denies abdominal pain, N/V/C/D. Reports having BMs. URO: Denies burning/itching/pain/urinary changes. FUNCTIONAL MENTAL DISABILITY TEACHER: Denies any PV bleeding. S/p subtotal abdominal hysterectomy. MSK/EXT/SKIN: Denies joint/skeletal/muscle pain, issues/changes in upper or lower extremities, itchiness, or superficial pain. PSYCH: Cooperative, pleasant mood & affect. The rest of the review of systems is otherwise negative. Past Medical History Past Medical History Comments PMH COMMENT: Past medical history: Insulin-dependent diabetes mellitus type 2 Primary hypertension MASLD Hyperlipidemia SARAH and OHS Obesity class III Anxiety/depression PTSD Medication list: Omeprazole 40 mg p.o. daily Gabapentin 300 mg p.o. 3 times daily Amlodipine 10 mg p.o. daily Buspirone 7.5 mg p.o. daily Estradiol 0.5 mg p.o. daily Atorvastatin 20 mg p.o. daily Quetiapine 25 mg p.o. at bedtime Doxycycline 100 mg p.o. 3 times daily Furosemide 20 mg p.o. daily Fenofibrate 54 mg p.o. daily Pioglitazone 30 mg p.o. daily Tamsulosin 0.4 mg p.o. daily Synjardy 1 tab p.o. twice daily Tirzepatide q. weekly Basaglar 80 units SC twice daily Insulin lispro 14 units SC 3 times daily Past surgical history: Total abdominal hysterectomy?[address] [facility] by Dr. Farley Allergies: Cephalexin?rash Clindamycin?hives Sulfamethoxazole?rash Trimethoprim?rash Penicillin?hives Social history: Occupational History: Unemployed. Previously worked at a [employer] Education Level: Attended college Marital Status: ,3 kids Tobacco use: 20 pk years. 1/2 pk a day ETHO use: Denies Illicit drug use: Denies Social History Note: lives with Family History: Mother?hypothyroid, CVA Daughter?hypothyroid Father?stroke, Parkinson's Exam Vital Signs Temp Pulse Resp BP Pulse Ox O2 Del Method O2 Flow Rate 98.2 F 77 17 150/83 H 95 Nasal Cannula 2 12/13/24 15:30 12/13/24 15:45 12/13/24 15:45 12/13/24 15:45 12/13/24 15:45 12/13/24 15:30 12/13/24 15:30 Narrative Exam Constitutional Alert, oriented x 3 and comfortable. Middle-age female, obese. Appears older than her age HEENT Vision grossly intact. Patent nares. Trachea midline Respiratory Chest normal on inspection and reduced air entry auscultated in all lung vega bilaterally Cardiovascular S1 and S2 audible, RRR. No murmurs carotid bruit. No gross JVD. Abdominal Soft, obese and non tender to palpation in all quadrants. BS + Genitourinary No bladder tenderness, no flank pain. Normal to palpation Musculoskeletal Extremities tone within normal limits. Trace LE edema. Skin Warm, dry and intact. No apparent lesions. Psychiatric Patient has good affect, is cooperative Neurological CN II - XII grossly intact. Extremity motor and sensation grossly intact. 1A: Level of Consciousness -alert, keenly responsive +0 1B: Ask Month and Age -both correct +0 1C: Blink Eyes & Squeeze Hands - Performs Both Tasks + 0 2: Test Horizontal Extraocular Movements - Normal + 0 3: Test Visual Vega -partial hemianopia +1 4: Test Facial Palsy (Use Grimace if Obtunded) - Minor paralysis (flat nasolabial fold, smile asymmetry) + 1 5A: Test Left Arm Motor Drift - No Drift for 10 Seconds + 0 5B: Test Right Arm Motor Drift -drift +1 6A: Test Left Leg Motor Drift - No Drift for 5 Seconds + 0 6B: Test Right Leg Motor Drift -drift +1 7: Test Limb Ataxia (FNF/Heel-Mclean) - No Ataxia + 0 8: Test Sensation -mild?moderate loss +1 9: Test Language/Aphasia -no aphasia +0 10: Test Dysarthria - Normal + 0 11: Test Extinction/Inattention - No abnormality + 0 NIHSS Score: 5 Results: Labs 12/13/24 13:48 12/13/24 13:48 Labs: Short CBC 12/13/24 Range/Units 13:48 WBC 11.5 H (3.6-11.0) Thou/mm3 Hgb 13.1 (12.0-16.0) g/dL Hct 40.7 (36.0-46.0) % Plt Count 248 (140-440) Thou/mm3 BMP 12/13/24 13:48 Sodium 142 Potassium 3.8 Chloride 103 Carbon Dioxide 29.3 BUN 11 Creatinine 0.7 Glucose 130 H Calcium 9.6 Cardiac Enzymes 12/13/24 Range/Units 13:48 Troponin I < 0.020 (0.0-0.045) ng/mL Liver Function 12/13/24 Range/Units 13:48 Total Bilirubin 0.2 L (0.3-1.2) mg/dL AST 76 H (0-34) U/L ALT 87 H (10-49) U/L Alkaline Phosphatase 111 (46-116) U/L Albumin 4.1 (3.5-5.0) gm/dL Urine 12/13/24 Range/Units 15:11 Urine Color Lt-Yellow (Lt Yel-Yel) Urine Clarity Clear (Clear/Hazy) Urine pH 7.0 (5.0-7.0) Ur Specific [place] 1.010 (1.001-1.035) Urine Protein Negative (Neg - Trace) Urine Glucose (UA) 4+ A (Negative) Quality Measures Quality Measures stroke Suspected type of Stroke: Acute Ischemic Tenecteplase given: within 60 min of arrival Rehab services: PT evaluation ordered and Speech Language Pathology eval ordered VTE Prophylaxis: mechanical Antithrombotic by day 2:: ordered Statin ordered: not ordered Anticoagulation ordered for A-fib or flutter (current or hx): not indicated Medications Home Medications and Allergies Home Medications ?Medication ?Instructions ?Recorded ?Confirmed ?Type amlodipine 5 mg tablet 5 mg PO QDAY 01/20/23 History omeprazole 40 mg capsule,delayed 20 mg PO QDAY 3 10/12/23 History release albuterol sulfate 90 mcg/actuation 2 puff inhalation Q 4H PRN 06/26/23 10/12/23 History aerosol inhaler (Ventolin HFA) Shortness Of Breath Or Wheezing aspirin 81 mg chewable tablet 81 mg PO QDAY 10/02/23 0 10/12/23 History (Aspirin Childrens) furosemide 20 mg tablet (Lasix) 20 mg PO QDAY 10/02/23 10/12/23 History nitroglycerin 0.3 mg sublingual 0.3 mg buccal [id number] E PRN Chest 10/02/23 10/12/23 History tablet (Nitrostat) Pain acetaminophen 500 mg tablet 500 mg PO Q6H PRN Pain 03/2510/12/23 History insulin lispro 100 unit/mL 40 unit subcut TID 10/12/23 10/12/23 History subcutaneous pen Allergies Allergy/AdvReac Type Severity Reaction Status Date / Time cephalexin Allergy Severe Rash Verified 09/25/24 18:52 clindamycin Allergy Severe Hives Verified 09/25/24 18:52 sulfamethoxazole Allergy Severe RASH TO Verified 09/25/24 18:52 BODY trimethoprim Allergy Severe RASH TO Verified 09/25/24 18:52 BODY Penicillins Allergy Intermediate Hives Verified 09/25/24 18:52 Visit Medications Acetaminophen (Acetaminophen Supp 650 Mg Supp) 650 mg FL Q6HR PRN PRN Reason: Fever > 100 or pain Stop: 01/12/25 15:11 Albuterol/Ipratropium (Albuterol/Ipratropium (Duoneb) Rt Vijaya 3 Ml Nebu) 3 ml INH Q2HR PRN PRN Reason: SHORTNESS OF BREATH OR WHEEZE Stop: 01/12/25 15:11 Sodium Chloride (Ns) 1,000 mls @ 50 mls/hr IV Q10H MEENU Stop: 01/12/25 13:44 Last Admin: 12/13/24 14:46 Dose: 50 mls/hr Nicardipine/Sodium Chloride (Cardene Ivpb) 20 mg in 200 mls @ 50 mls/hr IV .Q4H PRN; Protocol PRN Reason: Per Nicardipine Stroke Protocol Stop: 01/12/25 13:58 Labetalol HCl (Labetalol Inj 5 Mg/Ml Vial 20 Ml) 10 mg IVP [id number] PRN PRN Reason: SBP > 185 mmHg and/or DBP > 110 Ondansetron HCl (Ondansetron Inj 2 Mg/Ml Inj 2 Ml) 4 mg IVP Q4HR PRN PRN Reason: NAUSEA OR VOMITING Stop: 01/12/25 15:11 Discontinued Medications Labetalol HCl (Labetalol Inj 5 Mg/Ml Vial 20 Ml) 10 mg IVP [id number] PRN PRN Reason: SBP > 180 mmHg or DBP > 105 Tenecteplase (Tenecteplase Inj 50 Mg Vial) 25 mg IV X1 ONE Stop: 12/13/24 14:02 Last Admin: 12/13/24 14:13 Dose: 25 mg Assessment & Plan Plan Patient is a 44-year-old female with a past medical history significant for IDDM type II, primary hypertension, MASLD, hyperlipidemia, SARAH/OHS and anxiety presented today with a chief complaint of right-sided weakness. Patient will be admitted to the ICU for neurochecks s/p TNK administration. NEURO Stroke rule out DDx: TIA, CVA, complicated migraine Dx: - Patient presented with right-sided weakness, right-sided visual defect, and left-sided headache. ? 12/13 CT head and CTA were negative for hemorrhage, mass effect or midline shift. No significant arterial stenosis noted Rx: ? Monitor for any signs of bleeding - Repeat head CT ordered for 12/14 at 1413 p.m. - MR stroke protocol ordered - Patient is started on stroke protocol - Neuro checks q 15 minutes for the first 2 hours s/p TNK administration, ? Then every 30 minutes for the next 2 hours ? Then q. hourly for the next 20 hours - Head of bed elevated to 30 degrees - Swallow eval and bedside swallow screen ordered - PT/OT referrals placed - Seizure precautions in place - Allow permissive HTN. Antihypertensives if BP > 180 / 105. - HbA1C, Lipid panel, TSH ordered - ECHO with bubble study ordered - PRN Acetaminophen 1 g to avoid hyperthermia - PRN Labetaol 10 mg IV Q10 mins for SBP > 220 - DVT Prophylaxis with SCDs - Dr Li consulted, pending in-house Neurology recommendations RRX: - Follow-up on 24-hour post TNK CT. Anxiety/depression Home medication buspirone 7.5 mg p.o. daily Rx: ? Home medication on hold until swallow screen is passed. CVS Primary hypertension Rx: Antihypertensives on hold due to permissive hypertension RRx: Old medical records requested PULM SARAH and OHS Rx: ?BiPAP/CPAP at night GI/Hep GERD Rx: ?Pantoprazole 40 mg IV daily MASLD HLD Dx: ? Pending lipid panel ? AST 76, ALT 87 Rx: ? Lipid panel ordered ? To resume statin and fibrate pending swallow evaluation RENAL No acute problems HEME/ONC No acute problems ENDO IDDM type II Dx: -Home medication insulin Basaglar 80 units SC twice daily. Insulin lispro 40 units SC 3 times daily with meals Rx: -Insulin glargine 20 units SC at bedtime ordered ? Insulin sliding scale Q6 hourly ordered ? 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 daily Rx: - Recommend to completely discontinue estradiol due to patient's presentation as stroke rule out. Also from her history she reports migraine headaches, is a smoker and also morbidly obese. These factors put her at high risk for a thromboembolic event. ID Perianal abscess Dx: -Patient reported a perianal abscess starts creams purulence discharge. ? She was started on a 10-day course of doxycycline by her PCP Rx: ? Doxycycline 100 mg IV twice daily ? Wound care as per wound care nurse MSK/DERM No acute problems ICU Health maintenance: Dispo: Admit to ICU for neurochecks s/p TNK Diet: NPO DVT ppx: SCDs GI ppx: Protonix 40mg qD IV lines: 2 pIV Central line: No Arterial line: No [place]: No Code status: FULL CODE Plan of care discussed with Attending Dr. Orquidea Armstrong MD PGY 2 Disclaimer: This note was dictated by speech recognition. Minor errors in quality assurance inspector may be present due to voice recognition software.
[2024-12-13] MEDS: ONDANSETRON INJ 2 MG/ML INJ 2 ML 4 MG IVP (15:59)
[2024-12-13] MEDS: ACETAMINOPHEN IVPB 1,000 MG/100 ML VIAL 250 MG IV (16:28)
[2024-12-13] MEDS: Magnesium Sulfate 4 GM Ivpb 4 GM/50 ML BAG IV (16:34)
[2024-12-13] MEDS: POTASSIUM CHL 10 mEq IVPB 10 MEQ/100 ML BAG 100 MEQ IV ×2 (16:55→19:04)
--- NOTE | 2024-12-13 17:30 | PC.CC ---
Camila Becker is a 44-year-old female admitted for Confused. Application Lead made contact with Pt at bedside to complete initial and discuss discharge disposition. Role and reason for the contact was explained to Pt. Demographic information was verified. Pt identified Jorge Luis Becker [phone] and Daughter Marguerite Lyons [phone] as surrogate decision maker. Pt is independent with all ADLs. Pt utilizes cane as source of DME. Pt?s choice of pharmacy is [facility] [place] [address]. PCP is MANN. At time of discharge patient will return home, family will provide transportation. Discharge Plan: Home Next of Kin: Jorge Luis Becker [phone] and Daughter Marguerite Lyons [phone] PCP: MANN
[2024-12-13] MEDS: DOXYCYCLINE INJ 100 MG in SODIUM CHLORIDE 0.9% (POP) 100 ML IV (21:55)
[2024-12-13] MEDS: INSULIN DEGLUDEC 5 UNIT/0.05 ML (PER 5 UNITS) 10 UNIT SC (22:26)
--- NOTE | 2024-12-13 23:16 | PD.VPROG1 ---
Telemedicine visit statement This visit was conducted with the use of interactive audio and video telecommunications system that permits real time communication between the patient and the provider. Patient's verbal consent for virtual visit was obtained on 12/13/24 at 2316. Documentation for date of: 12/13/24 Virtual exam Vital Signs Temp Pulse Resp BP Pulse Ox O2 Del Method O2 Flow Rate 98.4 F 74 20 169/95 H 95 Room Air 1 12/13/24 17:37 12/13/24 19:49 12/13/24 19:49 12/13/24 19:45 12/13/24 19:49 12/13/24 18:00 12/13/24 18:17 Objective Labs 12/13/24 13:48 12/13/24 13:48 Labs: Laboratory Results - last 24 hr 12/13/24 12/13/24 13:48 15:11 WBC 11.5 H RBC 5.05 Hgb 13.1 Hct 40.7 MCV 81 MCH 25.9 MCHC 32.2 RDW Std Deviation 48.1 H Plt Count 248 Neut % (Auto) 57 Lymph % (Auto) 33 [place] % (Auto) 6 Eos % (Auto) 3 Baso % (Auto) 1 Neut # (Auto) 6.6 Lymph # (Auto) 3.8 [place] # (Auto) 0.7 Eos # (Auto) 0.4 Baso # (Auto) 0.1 Immature Gran # (Auto) 0.04 H Absolute Nucleated RBC 0.00 Immature Gran % 0 Nucleated RBC % 0 PT 11.9 INR 1.1 APTT 23.9 Sodium 142 Potassium 3.8 Chloride 103 Carbon Dioxide 29.3 Anion Gap 10 BUN 11 Creatinine 0.7 Estim Creat Clear Calc 121.9 eGFR > 60 BUN/Creatinine Ratio 16 Glucose 130 H Calculated Osmolality 284 Calcium 9.6 Corrected Calcium 9.6 Magnesium 1.7 Total Bilirubin 0.2 L AST 76 H ALT 87 H Alkaline Phosphatase 111 Troponin I < 0.020 B-Natriuretic Peptide < 20 Total Protein 6.8 Albumin 4.1 Globulin 2.7 Albumin/Globulin Ratio 1.5 Ur Collection Type Catheter Urine Color Lt-Yellow Urine Clarity Clear Urine pH 7.0 Ur Specific [place] 1.010 Urine Protein Negative Urine Glucose (UA) 4+ A Urine Ketones Negative Urine Blood Negative Urine Nitrite Negative Urine Bilirubin Negative Urine Urobilinogen (Auto) Negative Ur Leukocyte Esterase Negative Urine RBC 3 Urine WBC < 1 Ur Squamous Epith Cells 1 Urine Bacteria None Urine Opiates Screen Negative Urine Fentanyl Screen Negative Ur Barbiturates Screen Negative U Amphetamin/Meth Scrn Negative U Benzodiazepines Scrn Negative U Cocaine Metab Screen Negative U Marijuana (THC) Screen Negative Ethyl Alcohol < 3.0
[2024-12-14] VITALS (102 sets, daily range): BP systolic 115–196; BP diastolic 59–125; PULSE 63–95; RESP 1–98; TEMP 36.1–36.8; O2SAT 85–99; BMI 51.5
[2024-12-14] MEDS: ONDANSETRON INJ 2 MG/ML INJ 2 ML 4 MG IVP ×4 (00:14→23:51)
[2024-12-14] MEDS: ACETAMINOPHEN IVPB 1,000 MG/100 ML VIAL 250 MG IV (04:14)
[2024-12-14] MEDS: FAMOTIDINE INJ 10 MG/ML VIAL 2 ML 20 MG IVP (04:21)
[2024-12-14 05:33] LABS: Basophils # (Auto) 0.1 Thou/mm3 (0.0-0.2); Basophils % (Auto) 1 % (0-2.5); Eosinophils # (Auto) 0.4 Thou/mm3 (0.0-0.5); Eosinophils % (Auto) 4 % (0-10); Hematocrit 41.1 % (36.0-46.0); Hemoglobin 13.2 g/dL (12.0-16.0); Immature Granulocytes Auto 0.04 Thou/mm3 (0.00-0.00); Lymphocytes # (Auto) 3.1 Thou/mm3 (1.0-4.8); Lymphocytes % (Auto) 30 % (10-50); Mean Corpuscular HGB Conc 32.1 g/dl (31.0-37.0); Mean Corpuscular Hemoglobin 26.0 pg (25.0-35.0); Mean Corpuscular Volume 81 fL (80-100); Monocytes # (Auto) 0.6 Thou/mm3 (0.0-0.8); Monocytes % (Auto) 6 % (0-12); Neutrophils # (Auto) 6.3 Thou/mm3 (1.8-7.7); Neutrophils % (Auto) 59 % (37-80); Nucleated Red Blood Cell # 0.00 Thou/mm3 (0.00-0.00); Nucleated Red Blood Cell % 0 /100 WBC (0); Platelet Count 243 Thou/mm3 (140-440); RDW Standard Deviation 47.9 fL (36.4-46.3); Red Blood Count 5.07 Miln/mm3 (4.00-5.20); White Blood Count 10.5 Thou/mm3 (3.6-11.0)
[2024-12-14 05:43] LABS: Glucose Estimated Average 174 mg/dL (80-131); Hemoglobin A1C 7.7 % Hgb (4.8-6.0)
[2024-12-14 06:11] LABS: Anion Gap 9 (7-16); BUN/Creatinine Ratio 15 Ratio (12-20); Blood Urea Nitrogen 9 mg/dL (9-23); Calcium 8.6 mg/dL (8.3-10.6); Carbon Dioxide 27.7 mMol/L (20.0-31.0); Cardiac Risk Estimate 3.8 RATIO (3.7-5.6); Chloride 104 mMol/L (98-107); Cholesterol 139 mg/dL (132-200); Creatinine (Component) 0.6 mg/dL (0.6-1.3); Estimated Creatinine Clearance 141.7 mL/min (>60); Glucose 122 mg/dL (74-106); HDL Cholesterol 37 mg/dL (40-60); LDL Cholesterol,Calculated 68 mg/dL (0-130); Magnesium 2.2 mg/dL (1.6-2.6); Osmolality,Calculated 280 (275-295); Potassium 3.9 mMol/L (3.4-5.1); Sodium 141 mMol/L (136-145); Thyroid Stimulating Hormone 3.08 uIU/mL (0.55-4.78); Triglycerides 170 mg/dL (30-150); eGFR > 60 See Note
[2024-12-14] MEDS: DOXYCYCLINE INJ 100 MG in SODIUM CHLORIDE 0.9% (POP) 100 ML IV ×2 (08:17→21:01)
--- NOTE | 2024-12-14 09:30 | PC.SS ---
rounding note: Patient continues to be on her own CPAP machine. Pending CT and MRI. Possible downgrade later today
--- NOTE | 2024-12-14 10:17 | PD.RESCONSUL ---
HPI Data of Consult Requesting Physician: Jumana Heard MD Admitting Provider: Jumana Heard MD Attending Provider: Jumana Heard MD Primary Care Provider: Physician No Primary/Family Consult Narrative Reason for consult: Exertional chest pressure History of present illness: HPI: A 44-year-old female patient with past medical history of type 2 diabetes mellitus, MASLD, hypertension, hyperlipidemia, obstructive sleep apnea, COPD, anxiety, history of LLE DVT. Presented to the ED after she started to experience sudden onset of left-sided headache associated with facial droop, slurred speech, and right-sided paresthesia associated with an episode of bowel incontinence. Patient was brought to the emergency department in which stroke alert was activated. And was admitted for stroke workup. Cardiology team consulted as the patient has history of severe LV EDP of 29 reported right-sided chest pain on exertion. Patient reported that 3 days ago she started to have chest pressure and pain that radiated to the left arm while she was preparing breakfast. She reported that she took a sublingual nitroglycerin which relieved her symptoms. Patient also reported that she has exertional dyspnea and she has to stop to catch her breath during any activity. 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 Patient reported also orthopnea, and episodes of waking up short of breath even with the patient on CPAP machine. She reported that she has lower extremity edema however she mentions that it is related to her venous stasis, she reported that she underwent a procedure to help with her venous insufficiency which improved her symptoms however she still have some mild lower extremity swelling. Patient is actively smoker half a pack per day for 30 years. ED course: Stroke alert was called, pertinent vitals BP 165/93,, her labs showed NA 142, K3.8, Mg 1.7, AST 76, ALT87, BNP <20, troponin <0.02. EKG showed low voltage complexes, sinus rhythm, rate 81. QTc 448. No acute ST changes. Head CT and head/neck CTA showed no signs of hemorrhage, mass effect or midline shift or significant arterial stenosis. In the ED patient received tenecteplase 25 mg IV x 1, normal saline 1 L at 50 cc/h, ondansetron 4 mg IV x 1. And was admitted to the ICU for 24 hours monitoring PMHx; as above Allergies; cephalexin, clindamycin, sulfamethoxazole, trimethoprim, penicillin Social history;: History of smoking since age 13 half a pack per day, still actively smoking, no history of drug abuse or alcohol use cc:: cc: Jumana Heard MD Exam Vital Signs Temp Pulse Resp BP Pulse Ox O2 Del Method O2 Flow Rate 97.1 F 78 17 163/95 H 98 Room Air 1 12/14/24 10:01 12/14/24 10:01 12/14/24 10:12/14/24 10:12/14/24 10:12/14/24 04:30 12/13/24 18:17 Narrative Exam GEN: AOx3, morbidly obese, CPAP at bedside, able to speak full sentences HEENT: NC/AC, PERRLA, oral mucosa moist, neck supple CVS: RRR, S1-S2 present, no murmurs appreciated RESP: CTAB GI: soft, distended, non tender, NBS MSK: able to move all 4 limbs, no lower extremity edema SKIN: warm and dry CONTINUOUS MINER: CN II-XII and Sensation grossly intact. Results Labs 12/14/24 05:05 12/14/24 05:05 Labs: Short CBC 12/13/24 12/14/24 Range/Units 13:48 05:05 WBC 11.5 H 10.5 (3.6-11.0) Thou/mm3 Hgb 13.1 13.2 (12.0-16.0) g/dL Hct 40.7 41.1 (36.0-46.0) % Plt Count 248 243 (140-440) Thou/mm3 BMP 12/13/24 12/14/24 13:48 05:05 Sodium 142 141 Potassium 3.8 3.9 Chloride 103 104 Carbon Dioxide 29.3 27.7 BUN 11 9 Creatinine 0.7 0.6 Glucose 130 H 122 H Calcium 9.6 8.6 Cardiac Enzymes 12/13/24 Range/Units 13:48 Troponin I < 0.020 (0.0-0.045) ng/mL Liver Function 12/13/24 Range/Units 13:48 Total Bilirubin 0.2 L (0.3-1.2) mg/dL AST 76 H (0-34) U/L ALT 87 H (10-49) U/L Alkaline Phosphatase 111 (46-116) U/L Albumin 4.1 (3.5-5.0) gm/dL Urine 12/13/24 Range/Units 15:11 Urine Color Lt-Yellow (Lt Yel-Yel) Urine Clarity Clear (Clear/Hazy) Urine pH 7.0 (5.0-7.0) Ur Specific [place] 1.010 (1.001-1.035) Urine Protein Negative (Neg - Trace) Urine Glucose (UA) 4+ A (Negative) Quality Measures Quality Measures stroke Suspected type of Stroke: Acute Ischemic Tenecteplase given: within 60 min of arrival Rehab services: PT evaluation ordered and Speech Language Pathology eval ordered VTE Prophylaxis: not indicated Antithrombotic by day 2:: ordered Statin ordered: <75 y/o high intensity dose Anticoagulation ordered for A-fib or flutter (current or hx): not indicated Medications Home Medications and Allergies Home Medications ?Medication ?Instructions ?Recorded ?Confirmed ?Type amlodipine 5 mg tablet 5 mg PO QDAY 01/20/23 12/14/24 History omeprazole 40 mg capsule,delayed 20 mg PO QDAY 01/20/23 12/14/24 History release albuterol sulfate 90 mcg/actuation 2 puff inhalation Q4H PRN 06/26/23 12/14/24 History aerosol inhaler (Ventolin HFA) Shortness Of Breath Or Wheezing furosemide 20 mg tablet (Lasix) 20 mg PO QDAY 10/02/23 12/14/24 History nitroglycerin 0.3 mg sublingual 0.3 mg buccal [id number] PRN Chest 10/02/23 12/14/24 History tablet (Nitrostat) Pain insulin lispro 100 unit/mL 40 unit subcut TID 10/12/23 12/14/24 History subcutaneous pen diclofenac sodium 1 % topical gel 2 g topical TID 12/14/24 12/14/24 History doxycycline hyclate 100 mg tablet 100 mg PO BID 12/14/24 12/14/24 History empagliflozin 12.5 mg-metformin 1 tab PO BID 12/14/24 12/14/24 History 1,000 mg tablet (Synjardy) fenofibrate 54 mg tablet 54 mg PO QDAY 12/14/24 12/14/24 History gabapentin 300 mg capsule 300 mg PO TID 12/14/24 12/14/24 History insulin glargine 100 unit/mL (3 90 unit subcut BID 12/14/24 12/14/24 History mL) subcutaneous pen (Basaglar KwikPen U-100 Insulin) ketoconazole 2 % topical cream 1 applic topical BID 12/14/24 12/14/24 History mupirocin 2 % topical ointment 1 applic topical QDAY 12/14/24 12/14/24 History ondansetron 4 mg disintegrating 4 mg PO Q8H PRN nausea and vomiting 12/14/24 12/14/24 History tablet pen needle, diabetic 31 gauge x 12/14/24 12/14/24 History 3/16 (Droplet Pen Needle) quetiapine 50 mg tablet (Seroquel) 50 mg PO ONCE HS 12/14/24 12/14/24 History tamsulosin 0.4 mg capsule 0.4 mg PO Q24H 12/14/24 12/14/24 History tirzepatide (weight loss) 2.5 2.5 mg subcut QWEEK 12/14/24 12/14/24 History mg/0.5 mL subcutaneous pen injector (Zepbound) Allergies Allergy/AdvReac Type Severity Reaction Status Date / Time cephalexin Allergy Severe Rash Verified 09/25/24 18:52 clindamycin Allergy Severe Hives Verified 09/25/24 18:52 sulfamethoxazole Allergy Severe RASH TO Verified 09/25/24 18:52 BODY trimethoprim Allergy Severe RASH TO Verified 09/25/24 18:52 BODY Penicillins Allergy Intermediate Hives Verified 09/25/24 18:52 Visit Medications Acetaminophen (Acetaminophen Supp 650 Mg Supp) 650 mg RI Q6HR PRN; Protocol PRN Reason: Fever > 100 or pain Stop: 01/12/25 15:11 Albuterol/Ipratropium (Albuterol/Ipratropium (Duoneb) Rt Vijaya 3 Ml Nebu) 3 ml INH Q2HR PRN PRN Reason: SHORTNESS OF BREATH OR WHEEZE Stop: 01/12/25 15:11 Dextrose (Dextrose 50%-Water Inj 50 Ml Syringe) 50 ml IV Q15MIN PRN PRN Reason: BG <50 OR BG <70 & pt unresponsive Stop: 01/12/25 15:53 Glucagon (Glucagon Inj 1 Mg Vial) 1 mg IM Q15MIN PRN PRN Reason: BG <70, and no IV access Nicardipine/Sodium Chloride (Cardene Ivpb) 20 mg in 200 mls @ 50 mls/hr IV .Q4H PRN; Protocol PRN Reason: Per Nicardipine Stroke Protocol Stop: 01/12/25 13:58 Doxycycline Hyclate 100 mg/ (Sodium Chloride) 100 mls @ 100 mls/hr IV BID [facility] Stop: 12/20/24 20:59 Last Admin: 12/14/24 08:17 Dose: 100 mls/hr Insulin Degludec (Insulin Degludec 5 Unit/0.05 Ml (Per 5 Units)) 20 unit SC HS [facility] Stop: 01/13/25 20:59 Insulin Human Lispro (Insulin Lispro (Admelog) 1 Unit/0.01 Ml Unit) 0 unit SC Q6HR MEENU; Protocol Stop: 01/12/25 17:59 Last Admin: 12/14/24 05:09 Dose: Not Given Labetalol HCl (Labetalol Inj 5 Mg/Ml Vial 20 Ml) 10 mg IVP PRNMRX1 PRN PRN Reason: SBP > 185 mmHg and/or DBP > 110 Ondansetron HCl (Ondansetron Inj 2 Mg/Ml Inj 2 Ml) 4 mg IVP Q4HR PRN PRN Reason: NAUSEA OR VOMITING Stop: 01/12/25 15:11 Last Admin: 12/14/24 08:29 Dose: 4 mg Pantoprazole Sodium (Pantoprazole Inj 40 Mg Vial) 40 mg IVP QDAY [facility] Stop: 01/12/25 16:14 Last Admin: 12/14/24 08:17 Dose: 40 mg Discontinued Medications Acetaminophen (Acetaminophen Supp 650 Mg Supp) 650 mg RI Q6HR PRN PRN Reason: Fever > 100 or pain Stop: 01/12/25 15:11 Famotidine (Famotidine Inj 10 Mg/Ml Vial 2 Ml) 20 mg IVP X1 ONE Stop: 12/14/24 03:52 Last Admin: 12/14/24 04:21 Dose: 20 mg Sodium Chloride (Ns) 1,000 mls @ 50 mls/hr IV Q10H [facility] Stop: 12/14/24 09:44 Last Admin: 12/14/24 07:20 Dose: Not Given Magnesium Sulfate (Magnesium Sulfate Ivpb) 4 gm in 50 mls @ 12.5 mls/hr IV X1 ONE Stop: 12/13/24 20:11 Last Infusion: 12/13/24 22:32 Dose: Infused Potassium Chloride (Kcl Ivpb) 10 meq in 100 mls @ 100 mls/hr IV Q1H MEENU Stop: 12/13/24 18:12 Last Infusion: 12/13/24 22:32 Dose: Infused Acetaminophen (Ofirmev Inj) 1,000 mg in 100 mls @ 250 mls/hr IV X1 ONE Stop: 12/13/24 16:38 Last Infusion: 12/13/24 16:52 Dose: Infused Acetaminophen (Ofirmev Inj) 1,000 mg in 100 mls @ 250 mls/hr IV X1 ONE Stop: 12/14/24 04:17 Last Admin: 12/14/24 04:14 Dose: 250 mls/hr Insulin Degludec (Insulin Degludec 5 Unit/0.05 Ml (Per 5 Units)) 20 unit SC X1 ONE Stop: 12/13/24 15:55 Last Admin: 12/13/24 16:46 Dose: Not Given Insulin Degludec (Insulin Degludec 5 Unit/0.05 Ml (Per 5 Units)) 20 unit SC HS MEENU Stop: 01/12/25 20:59 Last Admin: 12/13/24 22:31 Dose: Not Given Insulin Degludec (Insulin Degludec 5 Unit/0.05 Ml (Per 5 Units)) 10 unit SC X1 ONE Stop: 12/13/24 21:57 Last Admin: 12/13/24 22:26 Dose: 10 unit Labetalol HCl (Labetalol Inj 5 Mg/Ml Vial 20 Ml) 10 mg IVP PRNMRX1 PRN PRN Reason: SBP > 180 mmHg or DBP > 105 Tenecteplase (Tenecteplase Inj 50 Mg Vial) 25 mg IV X1 ONE Stop: 12/13/24 14:02 Last Admin: 12/13/24 14:13 Dose: 25 mg Assessment & Plan Plan Summary:A 44-year-old female patient with past medical history of type 2 diabetes mellitus, MASLD, hypertension, hyperlipidemia, obstructive sleep apnea, COPD, anxiety, history of LLE DVT. Presented to the ED after she started to experience sudden onset of left-sided headache associated with facial droop, slurred speech, and right-sided paresthesia associated with an episode of bowel incontinence. Patient was admitted for stroke management #Stroke status post tenecteplase #HFpEF ejection fraction of 60% in June 2023 #Angina stable versus unstable rule out # History of hypertension #History of hyperlipidemia Patient reported episodes of chest pressure on exertion for the past few years, that improves with sublingual nitroglycerin. Patient has had coronary angiogram in June 2023 that she experienced some chest pressure with mild elevation of troponin. Angiogram showed normal coronary vasculature. However it showed severe elevation of LVEDP to 29 mmHg. Echo was done at the same admission and showed. Normal LV size and function. Mild LVH. Estimated EF 55-60%. Normal RV size and function. Today her EKG was only significant for low voltage, most likely secondary to her body habitus. No ST segment changes and no T wave inversion. Plan ? Echocardiogram Stroke protocol was ordered we will follow-up on the result ? Telemonitoring ? Start the patient on Lasix 40 mg p.o. daily whenever clinically appropriate ? Daily potassium and magnesium, please keep potassium and magnesium above 4 and 2 respectively within normal range ? Patient on permissive hypertension at this time as per neurology recommendations on nicardipine drip as needed to keep SBP less than 180 mmHg ? Follow-up with the neurology recommendations ? Atorvastatin 80 mg p.o. daily #History of left lower extremity DVT in 2006 Plan ? Echo with bubble study to rule out any PFO especially if the patient MRI showed multiple infarcts. At that time we will consider doing NEGRA #Type 2 diabetes mellitus on insulin A1c 7.7, on insulin sliding scale #MASLD #Morbid obesity Patient started weight loss plan in outpatient, reported 30 pounds weight loss since she started #COPD not on home oxygen No signs of exacerbation at this time, patient still actively smoker Plan DuoNebs as needed #Obstructive sleep apnea Plan ? Patient on BiPAP at home daily #History of anxiety ? Follow-up the primary team recommendations Thank you for your consultation, please do not hesitate to reach out if you have any question or concern - Patient's plan and care discussed with my attending, Dr. Alissa Dickinson MD Internal Medicine PGY-3 Attending Provider Attestation/Addendum I have personally seen and examined the patient separately on the above date of service and discussed the plan of care with the resident. I reviewed the resident Dr. Dickinson consultation progress note and agree with the resident findings and plan in the note above and have also edited the documentation to reflect my findings and plan. Patient is still in the ICU as patient did present with acute stroke symptoms and did have TNK. Her blood pressure is still mildly elevated but permissible hypertension for now given the stroke. Still waiting on the MRI. Patient known to me from previous admission in 2023 when she was admitted for unstable angina had a left heart cardiac catheterization done which showed completely normal coronary stent no evidence of any significant obstructive disease. LVEDP was elevated during that admission at 25 mmHg and patient was aggressively diuresed and was sent home on Lasix 40 mg once daily. 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 Patient did complain of some chest pain which was present 3 days prior to the admission and continued to have intermittent chest pain hence cardiology was consulted. Her symptoms appear completely atypical and her presentation is mostly secondary to acute stroke. Her last echocardiogram in May 2024 Were reviewed and noted above and new echocardiogram has been ordered to rule out any kind of regional wall motion abnormalities and evaluate LV function function as well as diastolic function. If echo shows normal EF with any regional wall motion abnormalities and unlikely she had any new cardiac event except for the stroke at the present point of time. And bubble study also has been performed given her history of stroke. If patient PFO positive then patient will require a NEGRA or if the MRI shows embolic strokes. Depression greater than 4 minutes and greater than 2.0. Continue to monitor on telemetry. Patient denies any current chest pain chest pressure or other cardiac symptoms at the present point of time. Patient does have a history of RV dilatation along with elevated right sided pressures. She does have a history of COPD and does use BiPAP every night. She used to be heavy smoker and says that she will completely quit now and recommend to provide her with resources for tobacco quitting and counseled the patient regarding the same. Continue BiPAP every day at night. Patient also does have a history of SARAH as well as obesity all of which are possibly contributing to her respiratory status. If the echo is normal no further ischemic workup required at the present point of time otherwise we will continue the workup with a NEGRA and further ischemic evaluation if needed. Patient recommended to continue to follow-up [place]isher [place] M[place]D. Interventional Cardiology
--- NOTE | 2024-12-14 11:18 | ESPR_ITS ---
<Statement entered by Jumana Heard MD - 12/16/24 11:51> TOTAL TIME: 45MINUTES ON DIRECT MEDICAL CARE, MANAGEMENT - COORDINATION AND COUNSELING > 50% OF TOTAL TIME I saw and evaluated the patient. I reviewed the resident?s note and agree with findings and plan as documented in the resident?s note. No setbacks, no bleeding complications Overall strength improved await final neurology recommendations and review repeat imaging continue current medications Documentation for date of: 12/14/24 Subjective Subjective Interval history: Chief complaint: Right sided- weakness, headache History of present illness: HPI: Patient is a 44-year-old female with a past medical history significant for IDDM type II, primary hypertension, MASLD, hyperlipidemia, SARAH/OHS, history of LLE DVT, and anxiety presented today with a chief complaint of right-sided weakness. Patient follows up with data entry representative Dr. Perez in [place]. Around 12 PM today patient reported she was sitting having lunch with her when she began to experience a sudden onset left-sided headache, 10/10 in intensity that continues to persist but now is 5/10 in intensity. No aggravating or relieving factors. She also had sudden onset right-sided weakness including upper and lower limbs and right facial droop as reported by her . She also described a feeling of paresthesia on the right side of her face and had an episode of bowel incontinence. At the same time she reported having blurry vision in her right eye which still persists. Subsequently she was BIBA to the ED. At that time she denied any chest pain/pressure, palpitations, SOB, lower extremity swelling, sick contacts or recent travel. Of note patient stated approximately 3 days ago she had an episode of exertional chest pressure. she just finished making breakfast when she felt her sudden onset central chest pressure which radiated to her left arm and was relieved by sublingual nitroglycerin. Also of note she had an admission in June 2023 for NSTEMI. At that time she underwent left heart catheterization by developer relations manager, Dr. Black which showed LVEDP severely elevated at 29 mmHg. No significant transvalvular aortic gradient. Left dominant circulation. LAD, LCx and RCA had no significant disease. She also had outpatient nuclear stress test by her data entry representative, Dr. Perez which she said was abnormal. In the ED patient was reviewed by teleneurology. At the time NIHSS was 9 and the decision to administer TNK was made. TNK was administered at 1413 ED course: BP 165/93, pulse 88, RR 20, temp 98.6 F, SpO2 96% on room air. Labs showed NA 142, K3.8, Mg 1.7, AST 76, ALT87, BNP <20, troponin <0.02 EKG showed low voltage complexes, sinus rhythm, rate 81. QTc 448. No acute ST changes. Head CT and head/neck CTA showed no signs of hemorrhage, mass effect or midline shift or significant arterial stenosis. In the ED patient received tenecteplase 25 mg IV x 1, normal saline 1 L at 50 cc/h, ondansetron 4 mg IV x 1. Patient will be admitted to the ICU for neurochecks s/p TNK administration. Neurology, Dr Li consulted. Appreciate recommendations Interval History 12/14/24: Overnight, at around 4 AM, patient complained of headache and nausea which was relieved by IV Tylenol and Zofran. Patient was examined at bedside; she continues to endorse right-sided weakness and deficits which this scientific technical writer also gleaned from physical exam. However, patient feels like her neurological function seems improved and denies having similar pain to what she presented with. Patient failed swallow and speech evaluation yesterday so she will undergo repeat evaluation today. Per protocol, patient will continue to be monitored for signs of bleeding or new neurologic deficits due to being s/p TNK and can be downgraded if repeat head CT 24 hours s/p TNK comes back negative for new or active brain bleed. Will also follow up on brain MRI for stroke r/o purposes and continue standard stroke protocol management. Exam Vital Signs Temp Pulse Resp BP Pulse Ox O2 Del Method O2 Flow Rate 97.1 F 78 17 163/95 H 98 Room Air 1 12/14/24 10:12/14/24 10:12/14/24 10:12/14/24 10:12/14/24 10:12/14/24 04:30 12/13/24 18:17 Narrative Exam Constitutional Alert, oriented x 3 and comfortable. Middle-age female, obese. Appears older than her age HEENT Vision grossly intact. Patent nares. Trachea midline Respiratory Chest normal on inspection and reduced air entry auscultated in all lung vega bilaterally Cardiovascular S1 and S2 audible, RRR. No murmurs carotid bruit. No gross JVD. Abdominal Abdominal tenderness to palpation mostly localized to suprapubic and umbilicus region. Soft, obese, no palpable masses. BS + Genitourinary Healed, dried-out abscess located slightly right of inferior gluteal cleft. Round, bulbous skin tag noted at right gluteal sulcus. External, non-thrombosed hemorrhoids noted at anal orifice. No bladder tenderness, no flank pain. Normal to palpation Musculoskeletal Extremities tone within normal limits. Trace LE edema. Skin Warm, dry and intact. No apparent lesions. Psychiatric Patient has good affect, is cooperative Neurological CN II - XII grossly intact. Extremity motor and sensation grossly intact. 1A: Level of Consciousness -alert, keenly responsive +0 1B: Ask Month and Age -both correct +0 1C: Blink Eyes & Squeeze Hands - Performs Both Tasks + 0 2: Test Horizontal Extraocular Movements - Normal + 0 3: Test Visual Vega -partial hemianopia +1 4: Test Facial Palsy (Use Grimace if Obtunded) - Minor paralysis (flat nasolabial fold, smile asymmetry) + 1 5A: Test Left Arm Motor Drift - No Drift for 10 Seconds + 0 5B: Test Right Arm Motor Drift -drift +1 6A: Test Left Leg Motor Drift - No Drift for 5 Seconds + 0 6B: Test Right Leg Motor Drift -drift +1 7: Test Limb Ataxia (FNF/Heel-Mclean) - No Ataxia + 0 8: Test Sensation -mild?moderate loss +1 9: Test Language/Aphasia -no aphasia +0 10: Test Dysarthria - Normal + 0 11: Test Extinction/Inattention - No abnormality + 0 NIHSS Score: 5 Objective Labs 12/14/24 05:05 12/14/24 05:05 Labs: Laboratory Results - last 24 hr 12/13/24 12/13/24 12/14/24 13:48 15:11 05:05 WBC 11.5 H 10.5 RBC 5.05 5.07 Hgb 13.1 13.2 Hct 40.7 41.1 MCV 81 81 MCH 25.9 26.0 MCHC 32.2 32.1 RDW Std Deviation 48.1 H 47.9 H Plt Count 248 243 Neut % (Auto) 57 59 Lymph % (Auto) 33 30 [place] % (Auto) 6 6 Eos % (Auto) 3 4 Baso % (Auto) 1 1 Neut # (Auto) 6.6 6.3 Lymph # (Auto) 3.8 3.1 [place] # (Auto) 0.7 0.6 Eos # (Auto) 0.4 0.4 Baso # (Auto) 0.1 0.1 Immature Gran # (Auto) 0.04 H 0.04 H Absolute Nucleated RBC 0.00 0.00 Immature Gran % 0 0 Nucleated RBC % 0 0 PT 11.9 INR 1.1 APTT 23.9 Sodium 142 141 Potassium 3.8 3.9 Chloride 103 104 Carbon Dioxide 29.3 27.7 Anion Gap 10 9 BUN 11 9 Creatinine 0.7 0.6 Estim Creat Clear Calc 121.9 141.7 eGFR > 60 > 60 BUN/Creatinine Ratio 16 15 Glucose [address] Glu mg/dL 174 H Hemoglobin A1c 7.7 H Calculated Osmolality 284 280 Calcium 9.6 8.6 Corrected Calcium 9.6 Magnesium 1.7 2.2 Total Bilirubin 0.2 L AST 76 H ALT 87 H Alkaline Phosphatase 111 Troponin I < 0.020 B-Natriuretic Peptide < 20 Total Protein 6.8 Albumin 4.1 Globulin 2.7 Albumin/Globulin Ratio 1.5 Triglycerides 170 H Cholesterol 139 LDL Cholesterol, Calc 68 HDL Cholesterol 37 L Cholesterol/HDL Ratio 3.8 TSH 3.08 Ur Collection Type Catheter Urine Color Lt-Yellow Urine Clarity Clear Urine pH 7.0 Ur Specific [place] 1.010 Urine Protein Negative Urine Glucose (UA) 4+ A Urine Ketones Negative Urine Blood Negative Urine Nitrite Negative Urine Bilirubin Negative Urine Urobilinogen (Auto) Negative Ur Leukocyte Esterase Negative Urine RBC 3 Urine WBC < 1 Ur Squamous Epith Cells 1 Urine Bacteria None Urine Opiates Screen Negative Urine Fentanyl Screen Negative Ur Barbiturates Screen Negative U Amphetamin/Meth Scrn Negative U Benzodiazepines Scrn Negative U Cocaine Metab Screen Negative U Marijuana (THC) Screen Negative Ethyl Alcohol < 3.0 Quality Measures Quality Measures stroke Suspected type of Stroke: Acute Ischemic Tenecteplase given: within 60 min of arrival Rehab services: PT evaluation ordered VTE Prophylaxis: not indicated Antithrombotic by day 2:: contraindicated (describe) (bleeding risk (s/p TNK)) Statin ordered: <75 y/o high intensity dose Anticoagulation ordered for A-fib or flutter (current or hx): not indicated Assessment & Plan Assessment Current Active Medications: Generic Name Dose Route Start Last Admin Trade Name Freq PRN Reason Stop Dose Admin Acetaminophen 650 mg 12/13/24 16:15 Acetaminophen Supp 650 Mg Supp DC 01/12/25 15:11 Q6HR PRN Fever > 100 or pain Protocol Albuterol/Ipratropium 3 ml 12/13/24 15:12 Albuterol/Ipratropium (Duoneb) Rt Vijaya 3 Ml Nebu INH 01/12/25 15:11 Q2HR PRN SHORTNESS OF BREATH OR WHEEZE Dextrose 50 ml 12/13/24 15:54 Dextrose 50%-Water Inj 50 Ml Syringe IV 01/12/25 15:53 Q15MIN PRN BG <50 OR BG <70 & pt unresponsive Glucagon 1 mg 12/13/24 15:54 Glucagon Inj 1 Mg Vial IM Q15MIN PRN BG <70, and no IV access Nicardipine/Sodium Chloride 20 mg in 200 mls @ 50 mls/hr 12/13/24 13:59 Cardene Ivpb IV 01/12/25 13:58 .Q4H PRN Per Nicardipine Stroke Protocol Protocol 5 MG/HR Doxycycline Hyclate 100 mg/ 100 mls @ 100 mls/hr 12/13/24 21:00 12/14/24 08:17 Sodium Chloride IV 12/20/24 20:59 100 mls/hr BID MEENU Administration Insulin Degludec 20 unit 12/14/24 21:00 Insulin Degludec 5 Unit/0.05 Ml (Per 5 Units) SC 01/13/25 20:59 HS MEENU Insulin Human Lispro 0 unit 12/14/24 11:30 Insulin Lispro (Admelog) 1 Unit/0.01 Ml Unit SC 01/13/25 11:29 ACHS MEENU Protocol Labetalol HCl 10 mg 12/13/24 13:59 Labetalol Inj 5 Mg/Ml Vial 20 Ml IVP PRNMRX1 PRN SBP > 185 mmHg and/or DBP > 110 Ondansetron HCl 4 mg 12/13/24 15:12 12/14/24 08:29 Ondansetron Inj 2 Mg/Ml Inj 2 Ml IVP 01/12/25 15:11 4 mg Q4HR PRN Administration NAUSEA OR VOMITING Pantoprazole Sodium 40 mg 12/13/24 16:15 09/14/25 08:17 Pantoprazole Inj 40 Mg Vial IVP 01/12/25 16:14 40 mg QDAY MEENU Administration Plan Patient is a 44-year-old female with a past medical history significant for IDDM type II, primary hypertension, MASLD, hyperlipidemia, SARAH/OHS and anxiety presented today with a chief complaint of right-sided weakness. Patient will be admitted to the ICU for neurochecks s/p TNK administration. Overnight, at around 4 AM, patient complained of headache and nausea which was relieved by IV Tylenol and Zofran. Patient was examined at bedside; she continues to endorse right-sided weakness and deficits which this scientific technical writer also gleaned from physical exam. However, patient feels like her neurological function seems improved and denies having similar pain to what she presented with. Patient failed swallow and speech evaluation yesterday so she will undergo repeat evaluation today. Per protocol, patient will continue to be monitored for signs of bleeding or new neurologic deficits due to being s/p TNK and can be downgraded if repeat head CT 24 hours s/p TNK comes back negative for new or active brain bleed. Will also follow up on brain MRI for stroke r/o purposes and continue standard stroke protocol management. NEURO Stroke rule out DDx: TIA, CVA, complicated migraine Dx: - Patient presented with right-sided weakness, right-sided visual defect, and left-sided headache. ? 12/13 CT head and CTA were negative for hemorrhage, mass effect or midline shift. No significant arterial stenosis noted Rx: ? Monitor for any signs of bleeding - Repeat head CT ordered for 12/14 at 1413 p.m. - MR stroke protocol ordered - Patient is started on stroke protocol - Neuro checks q 15 minutes for the first 2 hours s/p TNK administration, ? Then every 30 minutes for the next 2 hours ? Then q. hourly for the next 20 hours - Head of bed elevated to 30 degrees - Swallow eval and bedside swallow screen ordered - PT/OT referrals placed - Seizure precautions in place - Allow permissive HTN. Antihypertensives if BP > 180 / 105. - ECHO with bubble study ordered - PRN Acetaminophen 1 g to avoid hyperthermia - PRN Labetalol 10 mg IV Q10 mins for SBP > 220 - DVT Prophylaxis with SCDs - Dr Li consulted, pending in-house Neurology recommendations RRX: - Follow-up on 24-hour post TNK CT. Anxiety/depression Home medication buspirone 7.5 mg p.o. daily Rx: ?Restart PO buspirone 7.5 qD as patient has passed swallow and speech evaluation CVS Primary hypertension Rx: Antihypertensives on hold due to permissive hypertension RRx: Old medical records requested PULM SARAH and OHS Rx: ?BiPAP/CPAP at night GI/Hep GERD Rx: ?Pantoprazole 40 mg IV daily MASLD HLD Dx: -Lipid panel mostly WNL (triglycerides slightly elevated at 170) ?AST 76, ALT 87 Rx: -May restart patient's statin and fibrate medications as patient has passed swallow and speech evaluation RENAL No acute problems HEME/ONC No acute problems ENDO IDDM type II Dx: -Home medication insulin Basaglar 80 units SC twice daily. Insulin lispro 40 units SC 3 times daily with meals -HbA1c 7.7% Rx: -Insulin glargine 20 units increased to 40 units SC at bedtime ? 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 daily Rx: - Recommend to completely discontinue estradiol due to patient's presentation as stroke rule out. Also from her history she reports migraine headaches, is a smoker and also morbidly obese. These factors put her at high risk for a thromboembolic event. ID Perianal abscess Dx: -Patient reported a perianal abscess with creamy, purulent discharge -She was started on a 10-day course of doxycycline by her PCP -On 12/14 physical exam, patient's abscess seems dried out and not of concern (located slightly right of gluteal cleft and exhibiting no erythema, fluctuance, or discharge) Rx: ?Doxycycline 100 mg IV twice daily (consider discontinuing due to absence of ongoing erythema or fluctuance of abscess) ?Wound care as per wound care nurse MSK/DERM No acute problems ICU Health maintenance: Dispo: Admit to ICU for neurochecks s/p TNK Diet: Carbohydrate Consistent Low (passed swallow and speech evaluation) DVT ppx: SCDs GI ppx: Protonix 40mg qD IV lines: 2 pIV Central line: No Arterial line: No [place]: No Code status: FULL CODE Plan of care discussed with Attending Dr. Orquidea Lemus, DO Internal Medicine, PGY-1 Attending Provider Attestation/Addendum I personally saw and examined the patient and supervised PGY 1 resident, Dr. Lemus with formulating a management plan. I agree with his documentation with the exceptions as listed. Problem list: Stroke rule out Anxiety/depression Primary hypertension SARAH/OHS GERD MASLD HLD Obesity class III IDDM type II Surgically induced menopause on hormone replacement Gluteal abscess?healed Overnight patient had no events and blood pressure was in an acceptable range with SBP's between 150?170s. Also no signs of bleeding noted. She tolerated her home CPAP machine overnight, this morning upon interrogation no apneic events were noted. This morning patient was in good spirits and had improvement of her right-sided weakness as well as right eye blurry vision. She did have some episodes of tension-like headaches overnight which were relieved by Tylenol IV. At this point pending [address] TNK head CT, once no signs of hemorrhage will start DAPT and statin along with rest of her home meds pending neurology recommendations. TTE with bubble study was also completed today, pending read. Strongly recommend that the floor team discontinue her estradiol upon discharge. Anticipate patient will be downgraded to the floor today. Plan of care discussed with Attending Dr. Orquidea Armstrong MD PGY 2 Disclaimer: This note was dictated by speech recognition. Minor errors in piano mechanic apprentice may be present due to voice recognition software.
[2024-12-14] MEDS: INSULIN LISPRO (AdmeLOG) 1 UNIT/0.01 ML UNIT SC ×2 (11:33→21:02)
[2024-12-14] MEDS: ACETAMINOPHEN 325 MG TABLET 650 MG PO (13:46)
--- NOTE | 2024-12-14 14:13 | XR_ITS ---
Examination: CT brain head without contrast. 2-D sagittal coronal reconstructions Date and time of exam:December 14, 2024, 1419 hrs. Indications: Stroke alert history, December 13, 2024, onset focal neurologic deficit CTDI: vol (mGy):57.9 DLP: (mGycm):1091 Technique: Multiple CT axial sections of the brain have been obtained, 5 mm slice thickness. Contrast has not been administered. 2-D sagittal, coronal reconstructions have been obtained Low dose protocols were performed. One or more of the following dose reduction techniques were used; automated exposure control, adjustment of the mA and/or KV according to patient size, use of iterative reconstruction technique. Findings: No significant ventricular enlargement. Intra-axial or extra-axial hemorrhage density is not seen. No mass effect or midline shift Basal cisterns are not remarkable. Fourth ventricle is midline. Cranial vault intact. Impression: No interval acute hemorrhage, mass effect or midline shift
--- NOTE | 2024-12-14 18:53 | EVENTNT_ITS ---
Documentation for date of: 12/14/24 Event Note Event Note: This is a 44-year-old female with a history of IDDM type II, hypertension, MASLD, hyperlipidemia, SARAH/OHS, LLE DVT, and anxiety presented with sudden right-sided weakness. She reported experiencing a severe left-sided headache and right-sided weakness, including facial drooping, paresthesia, blurry vision, and bowel incontinence while having lunch with her . She was brought to the ED and denied any chest pain, palpitations, or shortness of breath. A history of exertional chest pressure and a prior NSTEMI was noted, with a recent nuclear stress test indicating abnormal results. Upon arrival at the ED, the patient was assessed by teleneurology, and based on the NIHSS score of 9, TNK was administered. Her vital signs showed stable BP and pulse, and laboratory results revealed elevated AST and ALT, with normal tr oponin levels. Head CT and CTA were negative for hemorrhage or significant arterial stenosis. The patient was admitted to the ICU for observation following TNK administration, with neurochecks scheduled per protocol. Neurology was consulted for further management and stroke protocol initiation. Overnight, the patient experienced headache and nausea, which responded to IV TYLENOL and ZOFRAN. She endorsed improved neurological function, though still presenting with right-sided weakness. Swallow and speech evaluations showed deficits, but she will undergo repeat evaluations. She is being monitored for bleeding and new neurological deficits and is scheduled for a follow-up head CT and brain MRI. Standard stroke protocol management is in place, including neurochecks, physical therapy referrals, and elevated head positioning. Blood pressure management is permissive, with antihypertensives prescribed if necessary. The patient?s home medication regimen includes buspirone for anxiety, which was restarted after passing the swallow and speech evaluations. Her hypertension treatment is on hold due to permissive hypertension in the stroke protocol. She is receiving PANTOPRAZOLE for GERD and has lipid abnormalities, with elevated AST and ALT levels. STATIN and FIBRATE medications may be restarted. Regarding her IDDM, insulin therapy adjustments are being made, and she is on a GLARGINE 40 units HS and sliding scale. The patient is also being monitored for a perianal abscess, which appears to be resolving. Although she was on DOXYCYCLINE for the abscess, wound care is being managed by a nurse, and discontinuation of the antibiotic is being considered. Hormone replacement therapy with ESTRADIOL is being discontinued due to the patient's stroke risk factors, including migraines, smoking, and obesity. Of note: toward the evening today, she woke-up complained of pressure-like, midsternal chest pain, radiating to her left arm, associated with sob, rated moderate in intensity. On evaluation, chest pain appeared reproducible, but persisted. EKG and trops were ordered and were normal. Unlikely to be cardiogenic in nature, improved with MOPHINE X1. Will continue to monitor symptoms. Case was discussed with attending physician. Tressa Fernández, PGY II This document was transcribed using voice recognition technology. Minor inaccuracies may be present.
[2024-12-14] MEDS: INSULIN DEGLUDEC 5 UNIT/0.05 ML (PER 5 UNITS) 40 UNIT SC (21:01)
--- NOTE | 2024-12-14 22:34 | VVPN_ITS ---
Telemedicine visit statement This visit was conducted with the use of phone was obtained on 12/14/24 at 2234. Documentation for date of: 12/14/24 Subjective Subjective Interval history: Patient is in ICU, s/p TNKase. Some improvement in the leg weakness and no more speech and language deficit noted. Virtual exam Vital Signs Temp Pulse Resp BP Pulse Ox O2 Del Method O2 Flow Rate 98.3 F 69 12 133/69 H 95 Room Air 1 12/14/24 16:00 12/14/24 19:11 12/14/24 19:11 12/14/24 19:11 12/14/24 19:11 12/14/24 19:11 12/13/24 18:17 Objective Labs 12/14/24 05:05 12/14/24 05:05 Labs: Laboratory Results - last 24 hr 12/14/24 05:05 WBC 10.5 RBC 5.07 Hgb 13.2 Hct 41.1 MCV 81 MCH 26.0 MCHC 32.1 RDW Std Deviation 47.9 H Plt Count 243 Neut % (Auto) 59 Lymph % (Auto) 30 [place] % (Auto) 6 Eos % (Auto) 4 Baso % (Auto) 1 Neut # (Auto) 6.3 Lymph # (Auto) 3.1 [place] # (Auto) 0.6 Eos # (Auto) 0.4 Baso # (Auto) 0.1 Immature Gran # (Auto) 0.04 H Absolute Nucleated RBC 0.00 Immature Gran % 0 Nucleated RBC % 0 Sodium 141 Potassium 3.9 Chloride 104 Carbon Dioxide 27.7 Anion Gap 9 BUN 9 Creatinine 0.6 Estim Creat Clear Calc 141.7 eGFR > 60 BUN/Creatinine Ratio 15 [address]ucose [address] Glu mg/dL 174 H Hemoglobin A1c 7.7 H Calculated Osmolality 280 Calcium 8.6 Magnesium 2.2 Triglycerides 170 H Cholesterol 139 LDL Cholesterol, Calc 68 HDL Cholesterol 37 L Cholesterol/HDL Ratio 3.8 TSH 3.08 Assessment & Plan Problem List (1) Acute cerebrovascular accident (CVA): Status: Acute Assessment and plan: s/p TNKase Significant improvement in her symptoms. Ok to start ASA for now as the repeat CT head did not show any bleeding. (2) Diabetes mellitus: Status: Chronic Assessment and plan: continue to check FSG and follow sliding scale insulin. (3) Accelerated hypertension: Status: Acute Assessment and plan: under good control now.
[2024-12-15] VITALS (32 sets, daily range): BP systolic 133–170; BP diastolic 77–108; PULSE 60–78; RESP 3–97; TEMP 35.9–36.6; O2SAT 95–99
--- NOTE | 2024-12-15 | XR_ITS ---
Examinations: MRI Brain without intravenous contrast. MRI brain with intravenous contrast MRA brain with intravenous contrast. MRA brain without intravenous contrast MRA neck with intravenous contrast Date and time of exam: December 15, 2024 0708 hours INDICATIONS: Stroke alert 12/13/2024 1347 hours, onset facial droop slurred speech right-sided paresthesias Technique: Multiple axial and sagittal images of the brain have been obtained Siemens high-resolution 1.5 Christel short bore scanner is utilized. Sagittal sections, T1-weighted, TR 500, TE 14 Axial sections proton density and T2-weighted, TR 3,000, TE 34, TR 3,000, TE 91 Inversion recovery axial images, TR 9,260, TE 111, TI 2,500 Diffusion weighted images, axial sections, TR 4,800, TE 128, B value 1,000 Axial sections, ADC map, TR 4,800, TE 128. Contrast images have been obtained post intravenous 20 cc Gadolinium. T1-weighted axial and coronal images post contrast have been obtained. Angiographic images of neck and brain are obtained pre and post contrast. 3-D post processing performed, including brain, extracranial neck arterial maximum intensity projections Findings: Sellaturcica is not enlarged. The optic chiasm and infundibular stalk are not remarkable. Prepontine and interpeduncular cisterns are not enlarged. No localized enlargement of the medulla or arianne. Fourth ventricle and cerebellar tonsils normal in position. Subacute hemorrhage is not seen. Fourth ventricle is midline. Mass in the cerebellopontine angle region is not evident. 7th and 8th nerve complexes exhibits symmetry. Globes are symmetrical with no retro-orbital mass. Increased white matter signal evident in the left basal ganglia, axial image 11 Diffusion-weighted images demonstrateno foci restricted diffusion. Mass-effect upon the ventricular system is not identified. Abnormal contrast enhancement is not seen. MRA brain images demonstrate no large vessel occlusions Impression: Negative for acute hemorrhage mass effect or midline shift No acute infarct. FLAIR images demonstrate focus of increased signal in the left basal ganglia, differential would include demyelinating disease No cerebral large vessel arterial occlusions
--- NOTE | 2024-12-15 00:15 | EKG_ITS ---
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
[2024-12-15] MEDS: MORPHINE SULF INJ 4 MG/ML VIAL IVP (00:35)
[2024-12-15 01:03] LABS: Troponin I < 0.020 ng/mL (0.0-0.045)
[2024-12-15 05:36] LABS: Basophils # (Auto) 0.1 Thou/mm3 (0.0-0.2); Basophils % (Auto) 0 % (0-2.5); Eosinophils # (Auto) 0.4 Thou/mm3 (0.0-0.5); Eosinophils % (Auto) 4 % (0-10); Hematocrit 42.3 % (36.0-46.0); Hemoglobin 13.4 g/dL (12.0-16.0); Immature Granulocytes Auto 0.05 Thou/mm3 (0.00-0.00); Lymphocytes # (Auto) 3.2 Thou/mm3 (1.0-4.8); Lymphocytes % (Auto) 28 % (10-50); Mean Corpuscular HGB Conc 31.7 g/dl (31.0-37.0); Mean Corpuscular Hemoglobin 25.4 pg (25.0-35.0); Mean Corpuscular Volume 80 fL (80-100); Monocytes # (Auto) 0.6 Thou/mm3 (0.0-0.8); Monocytes % (Auto) 6 % (0-12); Neutrophils # (Auto) 7.0 Thou/mm3 (1.8-7.7); Neutrophils % (Auto) 62 % (37-80); Nucleated Red Blood Cell # 0.00 Thou/mm3 (0.00-0.00); Nucleated Red Blood Cell % 0 /100 WBC (0); Platelet Count 199 Thou/mm3 (140-440); RDW Standard Deviation 46.7 fL (36.4-46.3); Red Blood Count 5.27 Miln/mm3 (4.00-5.20); White Blood Count 11.3 Thou/mm3 (3.6-11.0)
[2024-12-15 06:19] LABS: Anion Gap 12 (7-16); BUN/Creatinine Ratio 17 Ratio (12-20); Blood Urea Nitrogen 10 mg/dL (9-23); Calcium 8.9 mg/dL (8.3-10.6); Carbon Dioxide 25.8 mMol/L (20.0-31.0); Chloride 101 mMol/L (98-107); Creatinine (Component) 0.6 mg/dL (0.6-1.3); Estimated Creatinine Clearance 141.6 mL/min (>60); Glucose 145 mg/dL (74-106); Magnesium 2.0 mg/dL (1.6-2.6); Osmolality,Calculated 279 (275-295); Potassium 3.9 mMol/L (3.4-5.1); Sodium 139 mMol/L (136-145); eGFR > 60 See Note
--- NOTE | 2024-12-15 07:43 | PD.RESPRO ---
Documentation for date of: 12/15/24 Subjective Subjective Interval history: Ms. William is a 44-year-old woman with a history of insulin-dependent type 2 diabetes, hypertension, MAS LD, HLD, SARAH/OHS, left lower extremity DVT, history of NSTEMI in June 2023, and anxiety who presented to the ED on 12/13 2024 with right sided weakness she states that she was with her and had left-sided headache that was 10 out of 10 pain shortly thereafter she experienced right sided weakness of the upper and lower extremities and her notes having right facial droop and an episode of bowel incontinence and right eye blurred vision. She was brought to the emergency department and stroke protocol was initiated initial imaging with CT head and CTA head and neck were negative teleneuro was consulted recommended giving TNK given patient's last known well was within the window. She was admitted to ICU for further management after TNK administration. Repeat head CT showed no interval acute hemorrhage, mass effect or midline shift patient was downgraded to floors for subsequent stroke workup with MRI and echo. Patient follows with unpaid intern Dr. Lane in [place]. Post TNK she has had improvement in slurred speech and vision although the right upper extremity and lower extremity remain asymmetrically weak compared to the left with 4 out of 5 strength. Sensation is also still slightly asymmetric with decreased sensation on the right upper and lower extremity. Bank Worker was consulted in house, Dr. Benitez, given patient's history of exertional dyspnea and prior history of NSTEMI in 2023. 12/15/2024 patient downgraded to floors from ICU. Status post TNK administration. Repeat CT head shows no interval acute hemorrhage, mass effect or midline shift pending echo, pending brain MRI. Patient seen and examined at bedside she continues to have right-sided weakness of the upper and lower limb that have slightly improved from her initial presentation. Exam Vital Signs Temp Pulse Resp BP Pulse Ox O2 Del Method O2 Flow Rate 96.6 F L 64 12 154/89 H 95 CPAP 3 12/15/24 05:35 12/15/24 05:35 12/15/24 05:35 12/15/24 05:35 12/15/24 05:35 12/15/24 05:35 12/14/24 23:55 Objective Labs 12/15/24 04:21 12/15/24 04:21 Labs: Laboratory Results - last 24 hr 12/15/24 12/15/24 00:36 04:21 WBC 11.3 H RBC 5.27 H Hgb 13.4 Hct 42.3 MCV 80 MCH 25.4 MCHC 31.7 RDW Std Deviation 46.7 H Plt Count 199 D Neut % (Auto) 62 Lymph % (Auto) 28 [place] % (Auto) 6 Eos % (Auto) 4 Baso % (Auto) 0 Neut # (Auto) 7.0 Lymph # (Auto) 3.2 Mingo # (Auto) 0.6 Eos # (Auto) 0.4 Baso # (Auto) 0.1 Immature Gran # (Auto) 0.05 H Absolute Nucleated RBC 0.00 Immature Gran % 0 Nucleated RBC % 0 Sodium 139 Potassium 3.9 Chloride 101 Carbon Dioxide 25.8 Anion Gap 12 BUN 10 Creatinine 0.6 Estim Creat Clear Calc 141.6 eGFR > 60 BUN/Creatinine Ratio 17 Glucose 145 H Calculated Osmolality 279 Calcium 8.9 Magnesium 2.0 Troponin I < 0.020 Quality Measures Quality Measures stroke Suspected type of Stroke: Acute Ischemic Tenecteplase given: within 60 min of arrival Assessment & Plan Assessment Current Active Medications: Generic Name Dose Route Start Last Admin Trade Name Freq PRN Reason Stop Dose Admin Acetaminophen 650 mg 12/14/24 13:30 12/14/24 13:46 Acetaminophen 325 Mg Tablet PO 01/13/25 13:29 650 mg Q4HR PRN Administration Pain 1-3 or Fever >100.1 Albuterol/Ipratropium 3 ml 12/13/24 15:12 Albuterol/Ipratropium (Duoneb) Rt Vijaya 3 Ml Nebu INH 01/12/25 15:11 Q2HR PRN SHORTNESS OF BREATH OR WHEEZE Dextrose 50 ml 12/13/24 15:54 Dextrose 50%-Water Inj 50 Ml Syringe IV 01/12/25 15:53 Q15MIN PRN BG <50 OR BG <70 & pt unresponsive Glucagon 1 mg 12/13/24 15:54 Glucagon Inj 1 Mg Vial IM Q15MIN PRN BG <70, and no IV access Hydralazine HCl 10 mg 12/14/24 18:52 Hydralazine Inj 20 Mg/Ml Vial IVP 01/13/25 18:51 Q6H PRN BP >180/100 if HR <80 Doxycycline Hyclate 100 mg/ 100 mls @ 100 mls/hr 12/13/24 21:00 12/14/24 21:01 Sodium Chloride IV 12/20/24 20:59 100 mls/hr BID MEENU Administration Insulin Degludec 40 unit 12/14/24 21:00 12/14/24 21:01 Insulin Degludec 5 Unit/0.05 Ml (Per 5 Units) SC 01/13/25 20:59 40 unit HS MEENU Administration Insulin Human Lispro 0 unit 12/14/24 11:30 12/14/24 21:02 Insulin Lispro (Admelog) 1 Unit/0.01 Ml Unit SC 01/13/25 11:29 3 unit ACHS MEENU Administration Protocol Labetalol HCl 10 mg 12/14/24 18:52 Labetalol Inj 5 Mg/Ml Vial 20 Ml IVP 01/13/25 18:51 Q1H PRN BP >180/100 if HR >80 Ondansetron HCl 4 mg 12/13/24 15:12 12/14/24 23:51 Ondansetron Inj 2 Mg/Ml Inj 2 Ml IVP 01/12/25 15:11 4 mg Q4HR PRN Administration NAUSEA OR VOMITING Pantoprazole Sodium 40 mg 12/13/24 16:15 12/14/24 08:17 Pantoprazole Inj 40 Mg Vial IVP 01/12/25 16:14 40 mg QDAY MEENU Administration Plan A/P Patient is a 44-year-old female with a past medical history significant for IDDM type II, primary hypertension, MASLD, hyperlipidemia, SARAH/OHS and anxiety presented today with a chief complaint of right-sided weakness. Patient will be admitted to the ICU for neurochecks s/p TNK administration. Stroke rule out DDx: TIA, CVA, complicated migraine Dx: - Patient presented with right-sided weakness, right-sided visual defect, and left-sided headache. ? 12/13 CT head and CTA were negative for hemorrhage, mass effect or midline shift. No significant arterial stenosis noted Rx: ? Monitor for any signs of bleeding - MR stroke protocol ordered - ECHO with bubble study ordered - Head of bed elevated to 30 degrees - Swallow eval and bedside swallow screen ordered - PT/OT referrals placed - Seizure precautions in place - Allow permissive HTN. Antihypertensives if BP > 180 / 105. - HbA1C 7.7%, Lipid panel, TSH ordered - PRN Acetaminophen 1 g to avoid hyperthermia - PRN Labetaol 10 mg IV Q10 mins for SBP > 220 - DVT Prophylaxis with SCDs - Dr Li consulted, pending in-house Neurology recommendations RRX: - 24-hour post TNK CT shows #HFpEF ejection fraction of 60% in June 2023 #Angina stable versus unstable rule out MASLD HLD Dx: ? Pending lipid panel ? AST 76, ALT 87 Rx: ? Lipid panel: triglycerides 170, Cholesterol 139, LDL 68, HDL 37 ? To resume atorvastatin 80 qhs and fenofibrate 54mg qd pending swallow evaluation IDDM type II Dx: -Home medication insulin Basaglar 80 units SC twice daily. Insulin lispro 40 units SC 3 times daily with meals Rx: -Insulin glargine 20 units SC at bedtime ordered ? Insulin sliding scale Q6 hourly ordered ? 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 daily Rx: - Recommend to completely discontinue estradiol due to patient's presentation as stroke rule out. Also from her history she reports migraine headaches, is a smoker and also morbidly obese. These factors put her at high risk for a thromboembolic event. Perianal abscess Dx: -Patient reported a perianal abscess starts creams purulence discharge. ? She was started on a 10-day course of doxycycline by her PCP Rx: ? Doxycycline 100 mg IV twice daily ? Wound care as per wound care nurse Anxiety/depression Home medication buspirone 7.5 mg p.o. daily Rx: ? Home medication on hold until swallow screen is passed. Hypertension Rx: Antihypertensives on hold due to permissive hypertension RRx: Old medical records requested SARAH and OHS Rx: ?BiPAP/CPAP at night GERD Rx: ?Pantoprazole 40 mg IV daily Dispo: downgraded from icu after tnk administration for suspected stroke, pending completion of stroke work up Diet: npo pending speech eval Bowel Reg: not indicated VTE ppx: SCD GI ppx: Protonix 40 qd Code status: FULL
[2024-12-15] MEDS: ASPIRIN EC 81 MG TABEC PO (09:01)
[2024-12-15] MEDS: INSULIN LISPRO (AdmeLOG) 1 UNIT/0.01 ML UNIT SC ×3 (09:01→20:52)
[2024-12-15] MEDS: DOXYCYCLINE INJ 100 MG in SODIUM CHLORIDE 0.9% (POP) 100 ML IV ×2 (09:02→20:51)
--- NOTE | 2024-12-15 11:55 | ESDS_ITS ---
<Statement entered by Bekah Archer MD - 12/22/24 09:11> I reviewed above note and agree with findings and plans. I have also personally examined the patient with medicine team and went over assessment and plan with medical team including internet programmer and resident physician. <Statement entered by Arelis Li MD - 12/17/24 15:56> I discussed with and supervised the internet programmer physician who took care of this patient. I personally saw and examined the patient and discussed the assessment and plan with the entire medicine team, including my attending Dr. Archer, I agree with most of the assessment and plan as documented below Arelis Li M.D. PGY-3 Planned Discharge Date 12/16/24 DS: Providers Provider Date of admission: 12/13/24 15:12 Primary care physician: Physician No Primary/Family Admitting Provider: Jumana Heard MD Attending Provider on Admission: Jumana Heard MD Consults: 12/13/24 13:39 Consult to Neurology / Tele-Neurology Routine Comment: Consulting Provider: [facility] 12/13/24 15:18 Consult to Neurology / Tele-Neurology Routine Comment: Stroke s/p TNK Consulting Provider: Tulio Li 12/13/24 15:56 Referral Physical Therapy Routine Comment: Physician Instructions: 12/13/24 15:57 Referral Speech Therapy Routine Comment: 12/13/24 16:20 Referral Wound Care Routine Comment: 12/13/24 16:38 Consult to Cardiology Routine Comment: Consulting Provider: Shailesh Black 12/13/24 16:41 Referral Speech Therapy Stat Comment: 12/14/24 08:45 Referral - PHARMACY OPERATIONS SPECIALIST Document Examiner Routine Comment: maria victoria Gilbert Attending Provider on DC: Dr. Gianni GARZA Discharging Provider: Dr. Gianni GARZA DS: Diagnosis Problem List Completed Was Problem List Reviewed/Reconciled?: Yes Hospital Course Hospital Course Hospital course: Admission Diagnosis CVA rule out, status post TNK administration Discharge Diagnoses Functional neurological disorder, with residual right-sided weakness (upper and lower extremities, 4/5) (CVA ruled out) Type 2 diabetes mellitus, insulin-dependent Hypertension Hyperlipidemia and fatty liver disease Heart failure with preserved ejection fraction (HFpEF, EF 60%) Obstructive sleep apnea and obesity hypoventilation syndrome History of left lower extremity DVT Anxiety disorder Gastroesophageal reflux disease Perianal abscess, completing antibiotic course History of Present Illness Ms Becker is a 44-year-old woman with a history of insulin-dependent type 2 diabetes, hypertension, fatty liver disease, hyperlipidemia, SARAH/OHS, LLE DVT , NSTEMI (June 2023), and anxiety who presented to the ED on 12/13/2024 with sudden onset severe left-sided headache (10/) followed by right-sided weakness of both upper and lower extremities, right facial droop, right eye blurriness, R hemiplegia and one episode of bowel incontinence. Stroke Code was activated. NCTA showed no large vessel occlusion. Teleneurology was consulted, and she received TNK given her last known well was within the treatment window. She was admitted to the ICU for post-thrombolysis monitoring. Hospital Course Neurology: Post-TNK CT head showed no acute intracranial bleed. MRI brain confirmed no hemorrhage. Patient continued to have mild right-sided weakness (4/5 with reduced order picker strength). Cardiology: Evaluated for anginal symptoms. Echocardiogram showed EF 60%, no PFO, and no ASD. Endocrinology/Diabetes: Inpatient regimen included glargine 40 units QHS with sliding-scale insulin. Last HbA1c was 7.7%. Outpatient regimen (80 units glargine BID, lispro 40 units with meals) was documented. Medications: Aspirin 81 mg daily and atorvastatin 40 mg nightly initiated. Phenofibrate 54 mg daily continued for hyperlipidemia/fatty liver disease. Hormone therapy: Estradiol 0.5 mg PO daily discontinued due to increased thromboembolic risk in setting of stroke and prior DVT. Hypertension: Initially managed with permissive hypertension; later resumed home amlodipine 5 mg daily. SARAH/OHS: Continued BiPAP/CPAP at night. GERD: Continued daily PPI. Infectious disease: Continued outpatient doxycycline 100 mg BID to complete 10- day course for perianal abscess. Rehabilitation: Physical therapy recommended SNF for rehab, but patient expressed preference to discharge home with home health support Discharge Condition Hemodynamically stable Tolerating diet Ambulating with assistance Residual right-sided weakness (UE and LE 4/5) Discharge Plan Start taking atorvastatin 80mg at night and aspirin 81mg daily as management for stroke prevention. STOP taking estrogen Your blood glucose remained well controlled and insulin requirements were reduced compared to baseline. Please decrease amount of insulin and start taking 45 units at night, and increase by 1 unit every night if your fasting blood glucose the next morning is above 150. If you you are using your sliding scale insulin with Lispro, check your glucose level prior to your meals and administer your short acting insulin according to your sliding scale guide. For glucose level, 150-200 mg/dL, give 3 units prior to your meal For glucose level, 201-250 mg/dL, give 4 units prior to your meal For glucose level, 251-300 mg/dL, give 5 units prior to your meal For glucose level, Greater than 300 mg/dL, give 6 units prior to your meal Resume previous medications. Continue taking your Doxycycline until end of day 12/22/24 to finish your a ntibiotic course for your wound. Care for your wound: Please shower daily with antibacterial soap and monitor buttocks for open pimple like sites. Apply bacterial ointment as directed Follow up with neurology and cardiology in 1-2 weeks. Follow up with primary care doctor in 1-2 weeks. If you do not have primary care doctor, call [facility] at [phone] for appointments on or Fridays 1-4PM recommend outpatient work up of hypercoag workup. Follow-up: PCP within 1 week Neurology stroke clinic within 2?4 weeks Cardiology outpatient follow-up for anginal symptoms Endocrinology/diabetes management for insulin regimen review Disposition: Discharged home with home health services Return precautions: Instructed to return to ED for recurrent weakness, numbness, facial droop, slurred speech, vision changes, chest pain, dyspnea, or GI bleeding. Plan discussed with Dr Li, and Dr. Gianni Wan MD PGY1 Time Spent with Patient Time attestation: Total time spent providing and/or coordinating discharge services: Time spent: Greater than 30 minutes Exam Vital Signs Temp Pulse Resp BP Pulse Ox O2 Del Method O2 Flow Rate 96.9 F 67 12 170/88 H 98 Room Air 3 12/15/24 08:00 12/15/24 09:02 12/15/24 08:00 12/15/24 09:02 12/15/24 08:00 12/15/24 08:00 12/14/24 23:55 Narrative Exam Constitutional Alert, oriented x 3 and comfortable. Middle-age female, obese. HEENT Vision grossly intact. Patent nares. Trachea midline Respiratory Chest normal on inspection and reduced air entry auscultated in all lung perry bilaterally, shortness of breath, and slightly tachypnic Cardiovascular S1 and S2 audible, RRR. No murmurs carotid bruit. No gross JVD. Abdominal Soft, obese,nontender non distended, no palpable masses. BS + no rebound no guarding Genitourinary Healed, dried-out abscess located slightly right of inferior gluteal cleft. Round, bulbous skin tag noted at right gluteal sulcus. External, non-thrombosed hemorrhoids noted at anal orifice. No bladder tenderness, no flank pain. Normal to palpation Musculoskeletal Extremities tone within normal limits. Trace LE edema. Skin Warm, dry and intact. No apparent lesions. Psychiatric Patient has good affect, is cooperative Neurological CN II - XII grossly intact. Extremity motor and sensation grossly intact. RUE 4/5 and RLE 4/5, diminished order picker strenght of the R hand. Discharge Plan Plan Patient Disposition: Home w/HOME HEALTH Care Plan Goals: Please shower daily with antibacterial soap and monitor buttocks for open pimple like sites. Apply bacterial ointment as direted Prescriptions/Referrals Prescriptions/Med Rec: New aspirin 81 mg Tablet,Delayed Release (Dr/Ec) 81 mg PO QDAY 30 Days Qty: 30 0RF insulin glargine 100 unit/mL (3 mL) insulin pen 45 unit subcut QPM Qty: 15 0RF atorvastatin 80 mg tablet 80 mg PO QPM Qty: 30 0RF doxycycline monohydrate 100 mg capsule 100 mg PO BID Qty: 14 0RF furosemide 40 mg Tablet 40 mg PO QDAY 30 Days Qty: 30 0RF Continued amlodipine 5 mg tablet 5 mg PO QDAY Patient Comments: take 1 tablet by mouth once daily omeprazole 40 mg capsule,delayed release(DR/EC) 20 mg PO QDAY Patient Comments: take 1 capsule by mouth 30 MINUTES PRIOR TO BREAKFAST once daily albuterol sulfate [Ventolin HFA] 90 mcg/actuation Hfa Aerosol Inhaler 2 puff INHALATION Q4H PRN (Reason: Shortness Of Breath Or Wheezing) nitroglycerin [Nitrostat] 0.3 mg Tablet, Sublingual 0.3 mg BUCCAL [id number] PRN (Reason: Chest Pain) diclofenac sodium 1 % gel 2 g TOPICAL TID Patient Comments: APPLY ONE GRAM TRANSDERMALLY EVERY DAY NEEDED FOR PAIN ketoconazole 2 % cream 1 applic TOPICAL BID Patient Comments: APPLY TO THE AFFECTED AREA(S) EVERY DAY mupirocin 2 % ointment 1 applic TOPICAL QDAY Patient Comments: APPLY TO THE AFFECTED AREA(S) EVERY DAY FOR INFECTION doxycycline hyclate 100 mg tablet 100 mg PO BID Patient Comments: TAKE ONE TABLET BY MOUTH TWICE DAILY WITH FOOD FOR INFECTION tamsulosin 0.4 mg capsule 0.4 mg PO Q24H Patient Comments: take 1 capsule by mouth once daily ondansetron 4 mg tablet,disintegrating 4 mg PO Q8H PRN (Reason: nausea and vomiting) Patient Comments: dissolve 1 tablet ON THE TONGUE three times a day if needed for nausea and vomiting (DME) pen needle, diabetic [Droplet Pen Needle] 31 gauge x 3/16 needle Patient Comments: use 1 PEN NEEDLE to inject MEDICATION subcutaneously twice a day gabapentin 300 mg capsule 300 mg PO TID quetiapine [Seroquel] 50 mg tablet 50 mg PO ONCE HS Rx Instructions: administer on day 1 of therapy Synjardy 12.5-1,000 mg tablet 1 tab PO BID Zepbound 2.5 mg/0.5 mL pen injector 2.5 mg subcut QWEEK Rx Instructions: for 4 weeks fenofibrate 54 mg tablet 54 mg PO QDAY Held insulin lispro 100 unit/mL Insulin Pen 40 unit SUBCUT TID Hold Instructions: Resume on 12/23/24. Check your blood glucose before your meals, and follow your sliding scale per your glucose level. Here in the hospital you were receiving 3 units prior to your meals. Discontinued furosemide [Lasix] 20 mg Tablet 20 mg PO QDAY ibuprofen 800 mg tablet 800 mg PO TID PRN (Reason: pain) Qty: 30 0RF insulin glargine [Basaglar KwikPen U-100 Insulin] 100 unit/mL (3 mL) insulin pen 90 unit SUBCUT BID Patient Comments: inject 90 units subcutaneously twice a day Referrals: Shailesh Black MD [Referring Provider, Cardiology] Viviane Wan MD [Resident, Internal Medicine] No Primary/Family,Physician [Primary Care Provider] Tulio Li MD [Physician, Neurology] Patient/Caregiver Discharge Instructions Other Discharge Activity Instructions:: Start taking atorvastatin 80mg at night and aspirin 81mg daily as management for stroke prevention. Your blood glucose remained well controlled and insulin requirements were reduced compared to baseline. Please decrease amount of insulin and start taking 45 units at night, and increase by 1 unit every night if your fasting blood glucose the next morning is above 150. If you you are using your sliding scale insulin with Lispro, check your glucose level prior to your meals and administer your short acting insulin according to your sliding scale guide. For glucose level, 150-200 mg/dL, give 3 units prior to your meal For glucose level, 201-250 mg/dL, give 4 units prior to your meal For glucose level, 251-300 mg/dL, give 5 units prior to your meal For glucose level, Greater than 300 mg/dL, give 6 units prior to your meal Resume previous medications. Continue taking your Doxycycline until end of day 12/22/24 to finish your antibiotic course for your wound. Care for your wound: Please shower daily with antibacterial soap and monitor buttocks for open pimple like sites. Apply bacterial ointment as directed Follow up with neurology and cardiology in 1-2 weeks. Follow up with primary care doctor in 1-2 weeks. If you do not have primary care doctor, call [facility] at [phone] for appointments on Wednesdays or Fridays 1-4PM Education Materials: Risk Factors for Stroke, Diabetes Learn Serve Portion Size , Diabetes: Meal Planning, Diabetes Carbs Fats Protein, Understanding Folliculitis, ED Folliculitis Print Language: Swedish Stand Alone Forms: Kami Award Info., Patient Portal Info Letter Discharge Order Discharge Orders: Discharge (Routine); Ordered 12/16/24 Ordered By: Arelis Li Quality Discharge Quality Measures VTE prophylaxis
[2024-12-15] MEDS: ACETAMINOPHEN 325 MG TABLET 650 MG PO ×2 (12:04→20:50)
--- NOTE | 2024-12-15 12:12 | PC.SS ---
SS was informed by Sukumar PT, that pt refused SNF and wishes to DC home with HH PT/OT and pt will need a 3in1 BSC and FWW. Pt has Managed [employer] and requires auth. SS pending PT note to submit DME referral.
--- NOTE | 2024-12-15 14:28 | PC.SS ---
Rounding: Pending neuro reccs, DC plan home with HH. DME to be ordered once, PT note is submitted.
--- NOTE | 2024-12-15 14:59 | ESPR_ITS ---
<Statement entered by Jessie Coronado MD - 12/15/24 15:11> Note reviewed, I agree with most of its contents and agree with the patient's care as documented by Dr. Wan. The patient's management plan was discussed with my attending physician Dr. Harris. Jessie Coronado, PGY-2 Documentation for date of: 12/15/24 Subjective Subjective Interval history: Ms. William is a 44-year-old woman with a history of insulin-dependent type 2 diabetes, hypertension, MAS LD, HLD, SARAH/OHS, left lower extremity DVT, history of NSTEMI in June 2023, and anxiety who presented to the ED on 12/13 2024 with right sided weakness she states that she was with her and had left-sided headache that was 10 out of 10 pain shortly thereafter she experienced right sided weakness of the upper and lower extremities and her notes having right facial droop and an episode of bowel incontinence and right eye blurred vision. She was brought to the emergency department and stroke protocol was initiated initial imaging with CT head and CTA head and neck were negative teleneuro was consulted recommended giving TNK given patient's last known well was within the window. She was admitted to ICU for further management after TNK administration. Repeat head CT showed , patient was downgraded to floors for subsequent stroke workup with MRI and echo. Patient follows with industrial accountant Dr. Lane in [place]. Post TNK she has had improvement in slurred speech and vision although the right upper extremity and lower extremity remain asymmetrically weak compared to the left with 4 out of 5 strength. Sensation is also still slightly asymmetric with decreased sensation on the right upper and lower extremity. Switch Cleaner was consulted in house, Dr. Benitez, given patient's history of exertional dyspnea and prior history of NSTEMI in 2023. 12/15/2024 patient downgraded to floors from ICU. Status post TNK administration. Repeat CT head shows no interval changes Negative for acute hemorrhage, mass effect or midline shift , echo with no PFO no ASD , brain MRI with no bleeding Negative for acute hemorrhage, mass effect or midline shift or No cerebral large vessel arterial occlusions Patient seen and examined at bedside she continues to have right-sided weakness of the upper and lower limb that have slightly improved from her initial presentation. pending final neuro recs, PT recomend snf, but pt wants to go home with HH. Exam Vital Signs Temp Pulse Resp BP Pulse Ox O2 Del Method O2 Flow Rate 96.9 F 78 30 H 168/87 H 99 Room Air 3 12/15/24 12:00 12/15/24 12:00 12/15/24 12:00 12/15/24 12:00 12/15/24 12:00 12/15/24 12:00 12/14/24 23:55 Narrative Exam Constitutional Alert, oriented x 3 and comfortable. Middle-age female, obese. HEENT Vision grossly intact. Patent nares. Trachea midline Respiratory Chest normal on inspection and reduced air entry auscultated in all lung perry bilaterally, shortness of breath, and slightly tachypnic Cardiovascular S1 and S2 audible, RRR. No murmurs carotid bruit. No gross JVD. Abdominal Abdominal tenderness to palpation mostly localized to suprapubic and umbilicus region. Soft, obese, no palpable masses. BS + no rebound no guarding Genitourinary Healed, dried-out abscess located slightly right of inferior gluteal cleft. Round, bulbous skin tag noted at right gluteal sulcus. External, non-thrombosed hemorrhoids noted at anal orifice. No bladder tenderness, no flank pain. Normal to palpation Musculoskeletal Extremities tone within normal limits. Trace LE edema. Skin Warm, dry and intact. No apparent lesions. Psychiatric Patient has good affect, is cooperative Neurological CN II - XII grossly intact. Extremity motor and sensation grossly intact. 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 Objective Labs 12/15/24 04:21 12/15/24 04:21 Labs: Laboratory Results - last 24 hr 12/15/24 12/15/24 00:36 04:21 WBC 11.3 H RBC 5.27 H Hgb 13.4 Hct 42.3 MCV 80 MCH 25.4 MCHC 31.7 RDW Std Deviation 46.7 H Plt Count 199 D Neut % (Auto) 62 Lymph % (Auto) 28 [place] % (Auto) 6 Eos % (Auto) 4 Baso % (Auto) 0 Neut # (Auto) 7.0 Lymph # (Auto) 3.2 [place] # (Auto) 0.6 Eos # (Auto) 0.4 Baso # (Auto) 0.1 Immature Gran # (Auto) 0.05 H Absolute Nucleated RBC 0.00 Immature Gran % 0 Nucleated RBC % 0 Sodium 139 Potassium 3.9 Chloride 101 Carbon Dioxide 25.8 Anion Gap 12 BUN 10 Creatinine 0.6 Estim Creat Clear Calc 141.6 eGFR > 60 BUN/Creatinine Ratio 17 Glucose 145 H Calculated Osmolality 279 Calcium 8.9 Magnesium 2.0 Troponin I < 0.020 Quality Measures Quality Measures stroke Suspected type of Stroke: Acute Ischemic Tenecteplase given: within 60 min of arrival Rehab services: PT evaluation ordered and Speech Language Pathology eval ordered VTE Prophylaxis: mechanical Antithrombotic by day 2:: not indicated (describe) Statin ordered: <75 y/o high intensity dose Anticoagulation ordered for A-fib or flutter (current or hx): not indicated Assessment & Plan Assessment Current Active Medications: Generic Name Dose Route Start Last Admin Trade Name Freq PRN Reason Stop Dose Admin Acetaminophen 650 mg 12/14/24 13:30 12/15/24 12:04 Acetaminophen 325 Mg Tablet PO 01/13/25 13:29 650 mg Q4HR PRN Administration Pain 1-3 or Fever >100.1 Albuterol/Ipratropium 3 ml 12/13/24 15:12 Albuterol/Ipratropium (Duoneb) Rt Vijaya 3 Ml Nebu INH 01/12/25 15:11 Q2HR PRN SHORTNESS OF BREATH OR WHEEZE Aspirin 81 mg 12/15/24 09:00 12/15/24 09:01 Aspirin Ec 81 Mg Tabec PO 01/14/25 08:59 81 mg QDAY MEENU Administration Dextrose 50 ml 12/13/24 15:54 Dextrose 50%-Water Inj 50 Ml Syringe IV 01/12/25 15:53 Q15MIN PRN BG <50 OR BG <70 & pt unresponsive Furosemide 40 mg 12/15/24 09:00 12/15/24 09:02 Furosemide 40 Mg Tablet PO 01/14/25 08:59 40 mg QDAY MEENU Administration Glucagon 1 mg 12/13/24 15:54 Glucagon Inj 1 Mg Vial IM Q15MIN PRN BG <70, and no IV access Hydralazine HCl 10 mg 12/14/24 18:52 Hydralazine Inj 20 Mg/Ml Vial IVP 01/13/25 18:51 Q6H PRN BP >180/100 if HR <80 Doxycycline Hyclate 100 mg/ 100 mls @ 100 mls/hr 12/13/24 21:00 12/15/24 09:02 Sodium Chloride IV 12/20/24 20:59 100 mls/hr BID MEENU Administration Insulin Degludec 40 unit 12/14/24 21:00 12/14/24 21:01 Insulin Degludec 5 Unit/0.05 Ml (Per 5 Units) SC 01/13/25 20:59 40 unit HS MEENU Administration Insulin Human Lispro 0 unit 12/14/24 11:30 12/15/24 11:48 Insulin Lispro (Admelog) 1 Unit/0.01 Ml Unit SC 01/13/25 11:29 Not Given ACHS [facility] Protocol Labetalol HCl 10 mg 12/14/24 18:52 Labetalol Inj 5 Mg/Ml Vial 20 Ml IVP 01/13/25 18:51 Q1H PRN BP >180/100 if HR >80 Ondansetron HCl 4 mg 12/13/24 15:12 12/14/24 23:51 Ondansetron Inj 2 Mg/Ml Inj 2 Ml IVP 01/12/25 15:11 4 mg Q4HR PRN Administration NAUSEA OR VOMITING Pantoprazole Sodium 40 mg 12/16/24 09:00 Pantoprazole 40 Mg Tablet PO 01/15/25 08:59 QDAY MEENU Plan Ms Becker is a 44-year-old female with a past medical history significant for IDDM type II, primary hypertension, MASLD, hyperlipidemia, SARAH/OHS and anxiety presented today with a chief complaint of right-sided weakness. Patient will be admitted to the ICU for neurochecks s/p TNK administration. Stroke rule out DDx: TIA, CVA, complicated migraine Dx: - Patient presented with right-sided weakness, right-sided visual defect, and left-sided headache. ? 12/13 CT head and CTA were negative for hemorrhage, mass effect or midline shift. No significant arterial stenosis noted Rx: ? Monitor for any signs of bleeding - ECHO completed, no PFO or ASD - PT/OT referrals rec snf, however pt requests home with HH - HbA1C 7.7%, Lipid panel (triglycerides 170) l, TSH wnl - DVT Prophylaxis with SCDs - Dr Li consulted, pending in-house Neurology recommendations prior to discharge RRX: - 24-hour post TNK CT shows no interval changes - MRI Negative for acute hemorrhage, mass effect or midline shift - ASA 81 qd - atorvastatin 40 qhs #HFpEF ejection fraction of 60% in June 2023 #Angina stable versus unstable rule out - Lasix 40 mg po qd per cardiology recs - cardiology consulted appreciate recs RENETTA HLD Dx: ? lipid panel ? AST 76, ALT 87 Rx: ? Lipid panel: triglycerides 170, Cholesterol 139, LDL 68, HDL 37 ? atorvastatin 40 qhs - fenofibrate 54mg qd IDDM type II- well controlled Dx: -Home medication insulin Basaglar 80 units SC twice daily. Insulin lispro 40 units SC 3 times daily with meals Rx: -Insulin glargine 20 units SC at bedtime ordered ? Insulin sliding scale Q6 hourly ordered ? 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 daily Rx: -d/c estradiol in setting of stroke and hypercoagulopathy Perianal abscess Dx: -Patient reported a perianal abscess starts creams purulence discharge. ? She was started on a 10-day course of doxycycline by her PCP Rx: ? Doxycycline 100 mg IV twice daily ? Wound care as per wound care nurse Anxiety/depression Home medication buspirone 7.5 mg p.o. daily? Hypertension - amlodipine 5 mg SARAH and OHS Rx: ?BiPAP/CPAP at night GERD Rx: ?Pantoprazole 40 mg IV daily Tobacco Use disorder pt reports desire to stop smoking. she has smoked 1/2 pack since she was 13 years old, her son and her smoke and would like to quit. - nicotine patches - smoking cessation counseling and resources on discharge Dispo: downgraded from icu after tnk administration for suspected stroke,repeat head ct with no interval changes, MRI brain negative, PT recommend SNF but pt requests to go home with physical therapy, pending in house neuor recs. Diet: Carb consistent Low Bowel Reg: not indicated VTE ppx: SCD GI ppx: Protonix 40 qd Code status: FULL Plan discussed with Dr. Coronado, Dr Li, and Dr. Steven Wan MD PGY1 Attending Provider Attestation/Addendum I have discussed and was present for the essential components of the history, physical examination, diagnosis, and treatment plan with the resident. I agree with the patient's care as documented by the resident and amended herein by me. Adrian Harris DO. Although this document has been carefully reviewed, there may still be some phonetic and other typographical errors. These errors are purely grammatical due to imperfections in the software program and should not be construed in any way to compromise the substance of the patient's medical care during this visit. Patient seen and evaluated this AM. No acute events overnight, vital signs stable, patient afebrile, patient states her initial symptoms were mostly gone, she states her face feels strange but much improved from original presentation, still has some right-sided deficits as well. Echo negative for PFO, MRI brain negative for any acute stroke, pending final neurorecommendations, PT recommending short-term SNF placement, discharge pending final neurology recommendations.
--- NOTE | 2024-12-15 15:13 | PD.RESPRO ---
Documentation for date of: 12/15/24 Subjective Subjective Interval history: Pt examined at bedside today. Overnight events included an episode of chest pain, reproducible, improved with morphine, does not worsen with inspiration, negative cardiac workup at the time patient reports that she is doing better and would like to go home. She reports improvement in her headache and her weakness. She says she slept well with the morphine. She has no other complaints at this time. Exam Vital Signs Temp Pulse Resp BP Pulse Ox O2 Del Method O2 Flow Rate 96.9 F 78 30 H 168/87 H 99 Room Air 3 12/15/24 12:00 12/15/24 12:00 12/15/24 12:00 12/15/24 12:00 12/15/24 12:00 12/15/24 12:00 12/14/24 23:55 Narrative Exam General: AAOx3, NAD, morbidly obese female, [place] HEENT: Moist mucous membranes, conjunctiva clear, EOMI, PERRLA, Cardiovascular: S1, S2, radial pulses +2 bilat, RRR Pulmonary: Limited breath sounds, likely related to body habitus GI: Slight tenderness to palpitation in RUQ, no guarding, rigidity, rebound tenderness or distension Extremities: No presence of trace or pitting edema in lower extremities bilaterally, dorsalis pedis pulses +2 bilaterally Neuro: AAOx3, RUE and RLE 4/5, 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, Psych: Good judgement, thought and behavior Objective Labs 12/16/24 04:15 12/16/24 04:15 Labs: Laboratory Results - last 24 hr 12/15/24 12/15/24 00:36 04:21 WBC 11.3 H RBC 5.27 H Hgb 13.4 Hct 42.3 MCV 80 MCH 25.4 MCHC 31.7 RDW Std Deviation 46.7 H Plt Count 199 D Neut % (Auto) 62 Lymph % (Auto) 28 [place] % (Auto) 6 Eos % (Auto) 4 Baso % (Auto) 0 Neut # (Auto) 7.0 Lymph # (Auto) 3.2 [place] # (Auto) 0.6 Eos # (Auto) 0.4 Baso # (Auto) 0.1 Immature Gran # (Auto) 0.05 H Absolute Nucleated RBC 0.00 Immature Gran % 0 Nucleated RBC % 0 Sodium 139 Potassium 3.9 Chloride 101 Carbon Dioxide 25.8 Anion Gap 12 BUN 10 Creatinine 0.6 Estim Creat Clear Calc 141.6 eGFR > 60 BUN/Creatinine Ratio 17 Glucose 145 H Calculated Osmolality 279 Calcium 8.9 Magnesium 2.0 Troponin I < 0.020 Quality Measures Quality Measures stroke Suspected type of Stroke: Acute Ischemic Tenecteplase given: within 60 min of arrival Rehab services: PT evaluation ordered and Speech Language Pathology eval ordered VTE Prophylaxis: not indicated Antithrombotic by day 2:: not indicated (describe) Statin ordered: >75 y/o moderate or high intensity dose Anticoagulation ordered for A-fib or flutter (current or hx): not indicated Assessment & Plan Assessment Current Active Medications: Generic Name Dose Route Start Last Admin Trade Name Freq PRN Reason Stop Dose Admin Acetaminophen 650 mg 12/14/24 13:30 12/15/24 12:04 Acetaminophen 325 Mg Tablet PO 01/13/25 13:29 650 mg Q4HR PRN Administration Pain 1-3 or Fever >100.1 Albuterol/Ipratropium 3 ml 12/13/24 15:12 Albuterol/Ipratropium (Duoneb) Rt Vijaya 3 Ml Nebu INH 01/12/25 15:11 Q2HR PRN SHORTNESS OF BREATH OR WHEEZE Aspirin 81 mg 12/15/24 09:00 12/15/24 09:01 Aspirin Ec 81 Mg Tabec PO 01/14/25 08:59 81 mg QDAY MEENU Administration Dextrose 50 ml 12/13/24 15:54 Dextrose 50%-Water Inj 50 Ml Syringe IV 01/12/25 15:53 Q15MIN PRN BG <50 OR BG <70 & pt unresponsive Furosemide 40 mg 12/15/24 09:00 12/15/24 09:02 Furosemide 40 Mg Tablet PO 01/14/25 08:59 40 mg QDAY MEENU Administration Glucagon 1 mg 12/13/24 15:54 Glucagon Inj 1 Mg Vial IM Q15MIN PRN BG <70, and no IV access Hydralazine HCl 10 mg 12/14/24 18:52 Hydralazine Inj 20 Mg/Ml Vial IVP 01/13/25 18:51 Q6H PRN BP >180/100 if HR <80 Doxycycline Hyclate 100 mg/ 100 mls @ 100 mls/hr 12/13/24 21:00 12/15/24 09:02 Sodium Chloride IV 12/20/24 20:59 100 mls/hr BID MEENU Administration Insulin Degludec 40 unit 12/14/24 21:00 12/14/24 21:01 Insulin Degludec 5 Unit/0.05 Ml (Per 5 Units) SC 01/13/25 20:59 40 unit HS MEENU Administration Insulin Human Lispro 0 unit 12/14/24 11:30 12/15/24 11:48 Insulin Lispro (Admelog) 1 Unit/0.01 Ml Unit SC 01/13/25 11:29 Not Given ACHS [facility] Protocol Labetalol HCl 10 mg 12/14/24 18:52 Labetalol Inj 5 Mg/Ml Vial 20 Ml IVP 01/13/25 18:51 Q1H PRN BP >180/100 if HR >80 Ondansetron HCl 4 mg 12/13/24 15:12 12/14/24 23:51 Ondansetron Inj 2 Mg/Ml Inj 2 Ml IVP 01/12/25 15:11 4 mg Q4HR PRN Administration NAUSEA OR VOMITING Pantoprazole Sodium 40 mg 12/16/24 09:00 Pantoprazole 40 Mg Tablet PO 01/15/25 08:59 QDAY [facility] Plan Assessment: Ms Becker is a 44-year-old female with a past medical history significant for IDDM type II, primary hypertension, MASLD, hyperlipidemia, SARAH/OHS and anxiety presented today who was admitted to ICU for acute cva s/p TNK administration, downgraded to telemetry. #Acute CVA s/p TNK, ruled out Patient presented with right-sided weakness, right-sided visual defect, and left-sided headache. NIHSS score of 9, teleneuro recommended TNK administration 12/13 CT head and CTA were negative for hemorrhage, mass effect or midline shift. No significant arterial stenosis noted A1c 7.7, LDL 68 MRI negative for acute hemorrhage, mass effect, acute infarct, or LVO Echo negative bubble study Repeat head CT 12/14 shows no acute hemorrhage With MRI being negative, patient did not have CVA Plan: ? Speech therapy ? Neurochecks every 4 hours ? Head of bed elevation 30 degrees ? DVT prophylaxis ? Bedrest ? ASA 81 mg by mouth daily ? High intensity statin ? Recommend to stop estradiol outpatient ? Patient can be discharged from Neurology standpoint #HFpEF ejection fraction of 60% in June 2023 #Angina stable versus unstable rule out #MASLD #Hyperlipidemia #IDDM type II- well controlled #Surgically induced menopause on hormone replacement #Perianal abscess #Anxiety/depression #Hypertension #SARAH and OHS #GERD #Tobacco Use disorder Above handled by primary hospitalist team Patient seen and care discussed with my attending physician, Dr. Guillermo Marina, PGY-2 Attending Provider Attestation/Addendum I personally have seen and examined the patient at the bedside and I agree with the residents findings, assessment and plan of care. Reassurance given to the patient regarding the negative workup including MRI brain, repeat CT head. She most likely have functional neurological disorder. she continues to have giveaway weakness involving the right upper and lower extremities, she is advised to use the walker and follow-up with the home health physical therapy. Patient is stable from neurology standpoint for discharge home on aspirin 81 mg and statin and follow-up with neurology and cardiology as an outpatient.
--- NOTE | 2024-12-15 15:49 | PC.PT ---
Patient is safe to stand pivot transfer to a bedside commode with 1 family member for supervision. RN made aware.
--- NOTE | 2024-12-15 16:52 | PD.RESPRO ---
Documentation for date of: 12/15/24 Subjective Subjective Interval history: 12/15/2024, patient reported significant improvement of her weakness. Echo was done and showed ejection fraction of 60 to 65%, with grade 1 diastolic dysfunction. Negative for PFO or ASD. Telemonitoring over the past 24 hours was negative for any arrhythmias. 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 Objective Labs 12/15/24 04:21 12/15/24 04:21 Labs: Laboratory Results - last 24 hr 12/15/24 12/15/24 00:36 04:21 WBC 11.3 H RBC 5.27 H Hgb 13.4 Hct 42.3 MCV 80 MCH 25.4 MCHC 31.7 RDW Std Deviation 46.7 H Plt Count 199 D Neut % (Auto) 62 Lymph % (Auto) 28 Greer % (Auto) 6 Eos % (Auto) 4 Baso % (Auto) 0 Neut # (Auto) 7.0 Lymph # (Auto) 3.2 Greer # (Auto) 0.6 Eos # (Auto) 0.4 Baso # (Auto) 0.1 Immature Gran # (Auto) 0.05 H Absolute Nucleated RBC 0.00 Immature Gran % 0 Nucleated RBC % 0 Sodium 139 Potassium 3.9 Chloride 101 Carbon Dioxide 25.8 Anion Gap 12 BUN 10 Creatinine 0.6 Estim Creat Clear Calc 141.6 eGFR > 60 BUN/Creatinine Ratio 17 Glucose 145 H Calculated Osmolality 279 Calcium 8.9 Magnesium 2.0 Troponin I < 0.020 Quality Measures Quality Measures stroke Suspected type of Stroke: Acute Ischemic Tenecteplase given: within 60 min of arrival Rehab services: PT evaluation ordered VTE Prophylaxis: pharmaceutical Antithrombotic by day 2:: not indicated (describe) Statin ordered: <75 y/o high intensity dose Anticoagulation ordered for A-fib or flutter (current or hx): not indicated Assessment & Plan Assessment Current Active Medications: Generic Name Dose Route Start Last Admin Trade Name Freq PRN Reason Stop Dose Admin Acetaminophen 650 mg 12/14/24 13:30 12/15/24 12:04 Acetaminophen 325 Mg Tablet PO 01/13/25 13:29 650 mg Q4HR PRN Administration Pain 1-3 or Fever >100.1 Albuterol/Ipratropium 3 ml 12/13/24 15:12 Albuterol/Ipratropium (Duoneb) Rt Vijaya 3 Ml Nebu INH 01/12/25 15:11 Q2HR PRN SHORTNESS OF BREATH OR WHEEZE Amlodipine Besylate 5 mg 12/15/24 15:30 12/15/24 16:14 Amlodipine Besylate 5 Mg Tablet PO 01/14/25 15:29 5 mg QDAY MEENU Administration Aspirin 81 mg 12/15/24 09:00 12/15/24 09:01 Aspirin Ec 81 Mg Tabec PO 01/14/25 08:59 81 mg QDAY MEENU Administration Atorvastatin Calcium 40 mg 12/15/24 21:00 Atorvastatin Calcium 20 Mg Tablet PO 01/14/25 20:59 HS MEENU Dextrose 50 ml 12/13/24 15:54 Dextrose 50%-Water Inj 50 Ml Syringe IV 01/12/25 15:53 Q15MIN PRN BG <50 OR BG <70 & pt unresponsive Furosemide 40 mg 12/15/24 09:00 12/15/24 09:02 Furosemide 40 Mg Tablet PO 01/14/25 08:59 40 mg QDAY MEENU Administration Glucagon 1 mg 12/13/24 15:54 Glucagon Inj 1 Mg Vial IM Q15MIN PRN BG <70, and no IV access Hydralazine HCl 10 mg 12/14/24 18:52 Hydralazine Inj 20 Mg/Ml Vial IVP 01/13/25 18:51 Q6H PRN BP >180/100 if HR <80 Doxycycline Hyclate 100 mg/ 100 mls @ 100 mls/hr 12/13/24 21:00 12/15/24 09:02 Sodium Chloride IV 12/20/24 20:59 100 mls/hr BID MEENU Administration Insulin Degludec 40 unit 12/14/24 21:00 12/14/24 21:01 Insulin Degludec 5 Unit/0.05 Ml (Per 5 Units) SC 01/13/25 20:59 40 unit HS MEENU Administration Insulin Human Lispro 0 unit 12/14/24 11:30 12/15/24 11:48 Insulin Lispro (Admelog) 1 Unit/0.01 Ml Unit SC 01/13/25 11:29 Not Given ACHS [facility] Protocol Labetalol HCl 10 mg 12/14/24 18:52 Labetalol Inj 5 Mg/Ml Vial 20 Ml IVP 01/13/25 18:51 Q1H PRN BP >180/100 if HR >80 Non-Formulary Medication 54 mg 12/15/24 15:30 Fenofibrate PO 01/14/25 15:29 QDAY [facility] Ondansetron HCl 4 mg 12/13/24 15:12 12/14/24 23:51 Ondansetron Inj 2 Mg/Ml Inj 2 Ml IVP 01/12/25 15:11 4 mg Q4HR PRN Administration NAUSEA OR VOMITING Pantoprazole Sodium 40 mg 12/16/24 09:00 Pantoprazole 40 Mg Tablet PO 01/15/25 08:59 QDAY [facility] Plan Summary:A 44-year-old female patient with past medical history of type 2 diabetes mellitus, MASLD, hypertension, hyperlipidemia, obstructive sleep apnea, COPD, anxiety, history of LLE DVT. Presented to the ED after she started to experience sudden onset of left-sided headache associated with facial droop, slurred speech, and right-sided paresthesia associated with an episode of bowel incontinence. Patient was admitted for stroke management #Stroke status post tenecteplase -MRI negative for acute stroke #HFpEF ejection fraction of 60% in June 2023 #Angina stable versus unstable rule out # History of hypertension #History of hyperlipidemia Patient reported episodes of chest pressure on exertion for the past few years, that improves with sublingual nitroglycerin. Patient has had coronary angiogram in June 2023 that she experienced some chest pressure with mild elevation of troponin. Angiogram showed normal coronary vasculature. However it showed severe elevation of LVEDP to 29 mmHg. Echo was done at the same admission and showed. Normal LV size and function. Mild LVH. Estimated EF 55-60%. Normal RV size and function. Today her EKG was only significant for low voltage, most likely secondary to her body habitus. No ST segment changes and no T wave inversion Echo on 13 December 2024 showed Bubble study negative for PFO and ASD but overall the images are suboptimal because of her body habitus. Consider NEGRA if high index of clinical suspicion. Normal LV size, wall thickness, Estimated EF at 60-65 %. Mild LVH. Grade I diastolic dysfunction. The RV is normal in size and systolic function. Trace TR. mild aortic valve sclerosis without stenosis. Dilated IVC.No pericardial effusion noted. Plan ? Telemonitoring ? Continue the patient on Lasix 40 mg p.o. daily at the time of discharge ? Daily potassium and magnesium, please keep potassium and magnesium above 4 and 2 respectively within normal range ? Patient on permissive hypertension at this time as per neurology recommendations on nicardipine drip as needed to keep SBP less than 180 mmHg initially which was discontinued and now on oral medications ? Follow-up with the neurology recommendations ? Atorvastatin 80 mg p.o. daily - Rrecommended to follow-up with her transcribing operator head in [place] regularly . #History of left lower extremity DVT in 2006 Plan ? Echo with bubble study to rule out any PFO especially if the patient MRI showed multiple infarcts. At that time we will consider doing NEGRA #Type 2 diabetes mellitus on insulin A1c 7.7, on insulin sliding scale #MASLD #Morbid obesity Patient started weight loss plan in outpatient, reported 30 pounds weight loss since she started #COPD not on home oxygen No signs of exacerbation at this time, patient still actively smoker Plan DuoNebs as needed #Obstructive sleep apnea Plan ? Patient on BiPAP at home daily #History of anxiety ? Follow-up the primary team recommendations Thank you for your consultation, please do not hesitate to reach out if you have any question or concern - Patient's plan and care discussed with my attending, Dr. Alissa Dickinson MD Internal Medicine PGY-3 Attending Provider Attestation/Addendum I have personally seen and examined the patient separately on the above date of service and discussed the plan of care with the resident. I reviewed the resident Dr. Dickinson consultation progress note and agree with the resident findings and plan in the note above and have also edited the documentation to reflect my findings and plan. Shailesh Benitez Anumandla M.D. Interventional Cardiology
[2024-12-15] MEDS: FENOFIBRATE 54 MG PO (20:49)
[2024-12-15] MEDS: ATORVASTATIN CALCIUM 20 MG TABLET 40 MG PO (20:50)
[2024-12-15] MEDS: INSULIN DEGLUDEC 5 UNIT/0.05 ML (PER 5 UNITS) 40 UNIT SC (20:51)
[2024-12-16] VITALS: PULSE 60
[2024-12-16 03:19] VITALS: BMI 56.5
[2024-12-16 04:00] VITALS: BP 123/60; PULSE 63; PULSE 65; RESP 16; TEMP 36.1; O2SAT 96
[2024-12-16 05:20] LABS: Basophils # (Auto) 0.1 Thou/mm3 (0.0-0.2); Basophils % (Auto) 1 % (0-2.5); Eosinophils # (Auto) 0.4 Thou/mm3 (0.0-0.5); Eosinophils % (Auto) 4 % (0-10); Hematocrit 45.0 % (36.0-46.0); Hemoglobin 14.3 g/dL (12.0-16.0); Immature Granulocytes Auto 0.06 Thou/mm3 (0.00-0.00); Lymphocytes # (Auto) 3.3 Thou/mm3 (1.0-4.8); Lymphocytes % (Auto) 33 % (10-50); Mean Corpuscular HGB Conc 31.8 g/dl (31.0-37.0); Mean Corpuscular Hemoglobin 25.5 pg (25.0-35.0); Mean Corpuscular Volume 80 fL (80-100); Monocytes # (Auto) 0.5 Thou/mm3 (0.0-0.8); Monocytes % (Auto) 5 % (0-12); Neutrophils # (Auto) 5.6 Thou/mm3 (1.8-7.7); Neutrophils % (Auto) 56 % (37-80); Nucleated Red Blood Cell # 0.00 Thou/mm3 (0.00-0.00); Nucleated Red Blood Cell % 0 /100 WBC (0); Platelet Count 273 Thou/mm3 (140-440); RDW Standard Deviation 47.1 fL (36.4-46.3); Red Blood Count 5.60 Miln/mm3 (4.00-5.20); White Blood Count 10.0 Thou/mm3 (3.6-11.0)
[2024-12-16 05:43] LABS: Alanine Aminotransferase 75 U/L (10-49); Albumin, Serum 4.0 gm/dL (3.5-5.0); Albumin/Globulin Ratio 1.3 (1.2-2.2); Alkaline Phosphatase 100 U/L (46-116); Anion Gap 10 (7-16); Aspartate Amino Transferase 71 U/L (0-34); BUN/Creatinine Ratio 18 Ratio (12-20); Bilirubin,Total 0.3 mg/dL (0.3-1.2); Blood Urea Nitrogen 11 mg/dL (9-23); Calcium 9.4 mg/dL (8.3-10.6); Calcium (Corrected) 9.4 mg/dL (8.5-10.1); Carbon Dioxide 29.6 mMol/L (20.0-31.0); Chloride 101 mMol/L (98-107); Creatinine (Component) 0.6 mg/dL (0.6-1.3); Estimated Creatinine Clearance 141.9 mL/min (>60); Globulin 3.0 gm/dL (2.3-3.5); Glucose 147 mg/dL (74-106); Magnesium 1.9 mg/dL (1.6-2.6); Osmolality,Calculated 283 (275-295); Phosphorous 3.9 mg/dL (2.4-5.1); Potassium 3.2 mMol/L (3.4-5.1); Sodium 141 mMol/L (136-145); Total Protein 7.0 gm/dL (5.7-8.2); eGFR > 60 See Note
[2024-12-16 08:00] VITALS: BP 122/81; PULSE 68; PULSE 73; RESP 16; TEMP 36; O2SAT 99
[2024-12-16 08:46] VITALS: BP 125/61; PULSE 64
[2024-12-16 08:47] VITALS: BP 125/61; PULSE 65
[2024-12-16] MEDS: ASPIRIN EC 81 MG TABEC PO (08:47)
[2024-12-16] MEDS: PANTOPRAZOLE 40 MG TABLET PO (08:47)
[2024-12-16] MEDS: FENOFIBRATE 54 MG PO (08:47)
[2024-12-16] MEDS: DOXYCYCLINE INJ 100 MG in SODIUM CHLORIDE 0.9% (POP) 100 ML IV (08:47)
--- NOTE | 2024-12-16 09:03 | PD.RESPRO ---
Documentation for date of: 12/16/24 Subjective Subjective Interval history: Patient was seen and examined at bedside. Patient denied any new symptoms he was asking when she can go home. No arrhythmia recorded on the telemetry. Potassium was 3.2 today magnesium 1.9. She is on Lasix 40 mg tolerating well. 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 Objective Labs 12/16/24 04:15 12/16/24 04:15 Labs: Laboratory Results - last 24 hr 12/16/24 04:15 WBC 10.0 RBC 5.60 H Hgb 14.3 Hct 45.0 MCV 80 MCH 25.5 MCHC 31.8 RDW Std Deviation 47.1 H Plt Count 273 D Neut % (Auto) 56 Lymph % (Auto) 33 Trigg % (Auto) 5 Eos % (Auto) 4 Baso % (Auto) 1 Neut # (Auto) 5.6 Lymph # (Auto) 3.3 Trigg # (Auto) 0.5 Eos # (Auto) 0.4 Baso # (Auto) 0.1 Immature Gran # (Auto) 0.06 H Absolute Nucleated RBC 0.00 Immature Gran % 1 H Nucleated RBC % 0 Sodium 141 Potassium 3.2 L D Chloride 101 Carbon Dioxide 29.6 Anion Gap 10 BUN 11 Creatinine 0.6 Estim Creat Clear Calc 141.9 eGFR > 60 BUN/Creatinine Ratio 18 Glucose 147 H Calculated Osmolality 283 Calcium 9.4 Corrected Calcium 9.4 Phosphorus 3.9 Magnesium 1.9 Total Bilirubin 0.3 AST 71 H ALT 75 H Alkaline Phosphatase 100 Total Protein 7.0 Albumin 4.0 Globulin 3.0 Albumin/Globulin Ratio 1.3 Quality Measures Quality Measures stroke Suspected type of Stroke: Acute Ischemic Tenecteplase given: within 60 min of arrival Rehab services: PT evaluation ordered VTE Prophylaxis: pharmaceutical Antithrombotic by day 2:: ordered Statin ordered: <75 y/o high intensity dose Anticoagulation ordered for A-fib or flutter (current or hx): not indicated Assessment & Plan Assessment Current Active Medications: Generic Name Dose Route Start Last Admin Trade Name Freq PRN Reason Stop Dose Admin Acetaminophen 650 mg 12/14/24 13:30 12/15/24 20:50 Acetaminophen 325 Mg Tablet PO 01/13/25 13:29 650 mg Q4HR PRN Administration Pain 1-3 or Fever >100.1 Albuterol/Ipratropium 3 ml 12/13/24 15:12 Albuterol/Ipratropium (Duoneb) Rt Vijaya 3 Ml Nebu INH 01/12/25 15:11 Q2HR PRN SHORTNESS OF BREATH OR WHEEZE Amlodipine Besylate 5 mg 12/15/24 15:30 12/16/24 08:47 Amlodipine Besylate 5 Mg Tablet PO 01/14/25 15:29 5 mg QDAY MEENU Administration Aspirin 81 mg 12/15/24 09:00 12/16/24 08:47 Aspirin Ec 81 Mg Tabec PO 01/14/25 08:59 81 mg QDAY MEENU Administration Atorvastatin Calcium 40 mg 12/15/24 21:00 12/15/24 20:50 Atorvastatin Calcium 20 Mg Tablet PO 01/14/25 20:59 40 mg HS MEENU Administration (Fenofibrate 54 Mg 0 ea 12/15/24 20:00 12/16/24 08:47 Tablet) PO 01/14/25 19:59 1 tablet QDAY MEENU Administration Dextrose 50 ml 12/13/24 15:54 Dextrose 50%-Water Inj 50 Ml Syringe IV 01/12/25 15:53 Q15MIN PRN BG <50 OR BG <70 & pt unresponsive Furosemide 40 mg 12/15/24 09:00 12/16/24 08:46 Furosemide 40 Mg Tablet PO 01/14/25 08:59 40 mg QDAY MEENU Administration Glucagon 1 mg 12/13/24 15:54 Glucagon Inj 1 Mg Vial IM Q15MIN PRN BG <70, and no IV access Hydralazine HCl 10 mg 12/14/24 18:52 Hydralazine Inj 20 Mg/Ml Vial IVP 01/13/25 18:51 Q6H PRN BP >180/100 if HR <80 Doxycycline Hyclate 100 mg/ 100 mls @ 100 mls/hr 12/13/24 21:00 12/16/24 08:47 Sodium Chloride IV 12/20/24 20:59 100 mls/hr BID MEENU Administration Insulin Degludec 40 unit 12/14/24 21:00 12/15/24 20:51 Insulin Degludec 5 Unit/0.05 Ml (Per 5 Units) SC 01/13/25 20:59 40 unit HS MEENU Administration Insulin Human Lispro 0 unit 12/14/24 11:30 12/16/24 07:00 Insulin Lispro (Admelog) 1 Unit/0.01 Ml Unit SC 01/13/25 11:29 Not Given ACHS MEENU Protocol Labetalol HCl 10 mg 12/14/24 18:52 Labetalol Inj 5 Mg/Ml Vial 20 Ml IVP 01/13/25 18:51 Q1H PRN BP >180/100 if HR >80 Ondansetron HCl 4 mg 12/13/24 15:12 12/14/24 23:51 Ondansetron Inj 2 Mg/Ml Inj 2 Ml IVP 01/12/25 15:11 4 mg Q4HR PRN Administration NAUSEA OR VOMITING Pantoprazole Sodium 40 mg 12/16/24 09:00 12/16/24 08:47 Pantoprazole 40 Mg Tablet PO 01/15/25 08:59 40 mg QDAY MEENU Administration Plan Summary:A 44-year-old female patient with past medical history of type 2 diabetes mellitus, MASLD, hypertension, hyperlipidemia, obstructive sleep apnea, COPD, anxiety, history of LLE DVT. Presented to the ED after she started to experience sudden onset of left-sided headache associated with facial droop, slurred speech, and right-sided paresthesia associated with an episode of bowel incontinence. Patient was admitted for stroke management #Stroke status post tenecteplase -MRI negative for acute stroke #HFpEF ejection fraction of 60% in June 2023 #Angina stable versus unstable rule out # History of hypertension #History of hyperlipidemia Patient reported episodes of chest pressure on exertion for the past few years, that improves with sublingual nitroglycerin. Patient has had coronary angiogram in June 2023 that she experienced some chest pressure with mild elevation of troponin. Angiogram showed normal coronary vasculature. However it showed severe elevation of LVEDP to 29 mmHg. Echo was done at the same admission and showed. Normal LV size and function. Mild LVH. Estimated EF 55-60%. Normal RV size and function. Today her EKG was only significant for low voltage, most likely secondary to her body habitus. No ST segment changes and no T wave inversion Echo on 13 December 2024 showed Bubble study negative for PFO and ASD but overall the images are suboptimal because of her body habitus. Consider NEGRA if high index of clinical suspicion. Normal LV size, wall thickness, Estimated EF at 60-65 %. Mild LVH. Grade I diastolic dysfunction. The RV is normal in size and systolic function. Trace TR. mild aortic valve sclerosis without stenosis. Dilated IVC.No pericardial effusion noted. Plan ? Telemonitoring ? Continue the patient on Lasix 40 mg p.o. daily at the time of discharge ? Daily potassium and magnesium, please keep potassium and magnesium above 4 and 2 respectively within normal range ? Follow-up with the neurology recommendations ? Atorvastatin 80 mg p.o. daily - Rrecommended to follow-up with her link and link knitting machine operator in [place] regularly . ? Smoking cessation counseling #History of left lower extremity DVT in 2006 Plan ? Echo with bubble study to rule out any PFO especially if the patient MRI showed multiple infarcts. At that time we will consider doing NEGRA #Type 2 diabetes mellitus on insulin A1c 7.7, on insulin sliding scale #MASLD #Morbid obesity Patient started weight loss plan in outpatient, reported 30 pounds weight loss since she started #COPD not on home oxygen No signs of exacerbation at this time, patient still actively smoker Plan DuoNebs as needed #Obstructive sleep apnea Plan ? Patient on BiPAP at home daily #History of anxiety ? Follow-up the primary team recommendations Thank you for your consultation, please do not hesitate to reach out if you have any question or concern - Patient's plan and care discussed with my attending, Dr. Alissa Dickinson MD Internal Medicine PGY-3 Attending Provider Attestation/Addendum I have personally seen and examined the patient separately on the above date of service and discussed the plan of care with the resident. I reviewed the resident Dr. Dickinson consultation progress note and agree with the resident findings and plan in the note above and have also edited the documentation to reflect my findings and plan. Patient is still in the ICU as patient did present with acute stroke symptoms and did have TNK. Her blood pressure is still mildly elevated but permissible hypertension for now given the stroke. Still waiting on the MRI. Patient known to me from previous admission in 2023 when she was admitted for unstable angina had a left heart cardiac catheterization done which showed completely normal coronary stent no evidence of any significant obstructive disease. LVEDP was elevated during that admission at 25 mmHg and patient was aggressively diuresed and was sent home on Lasix 40 mg once daily. She does follow-up with link and link knitting machine operator at [place] regularly. Patient did complain of some chest pain which was present 3 days prior to the admission and continued to have intermittent chest pain hence cardiology was consulted. Her symptoms appear completely atypical and her presentation is mostly secondary to acute stroke. Her last echocardiogram in May 2024 Were reviewed and noted above and new echocardiogram has been ordered to rule out any kind of regional wall motion abnormalities and evaluate LV function function as well as diastolic function. MRI did not show any acute infarct and then no evidence of any new stroke. No cerebral large vessel arterial occlusions. Echocardiogram showed no evidence of any PFO or ASD by bubble study. NEGRA was not performed. Normal LV size and function normal RV function. Mild LVH. Grade 1 diastolic dysfunction. Estimated EF of 60 to 65%. Trace TR and mild aortic valve stenosis without stenosis. IVC was mildly dilated and no pericardial effusion noted. Continue to monitor on telemetry. Patient denies any current chest pain chest pressure or other cardiac symptoms at the present point of time. Patient does have a history of RV dilatation along with elevated right sided pressures. She does have a history of COPD and does use BiPAP every night. She used to be heavy smoker and says that she will completely quit now and recommend to provide her with resources for tobacco quitting and counseled the patient regarding the same. Continue BiPAP every day at night. Patient also does have a history of SARAH as well as obesity all of which are possibly contributing to her respiratory status. As the echo is normal no further ischemic workup required at the present point of time otherwise we will continue the workup with a NEGRA and further ischemic evaluation if needed. Patient recommended to continue to follow-up with primary link and link knitting machine operator in [place] Shailesh Black M.D. Interventional Cardiology
[2024-12-16 10:30] VITALS: BP 144/70; PULSE 62; RESP 18; TEMP 36.6; O2SAT 98
--- NOTE | 2024-12-16 11:00 | PC.SS ---
Privacy Compliance Manager (SHANITA) Mallorie submitted a DME referral via [facility] for FWW and a 3-in-1 commode. [facility] will provide [facility] contact information to the patient. Cele from [facility] informed that she will contact the patient for logistics in delivery.
--- NOTE | 2024-12-17 09:57 | PC.CC ---
Addendum entered by Saurav Stephen RN 12/17/24 13:51: Called Camila to inform her that her insurance has denied HH services. Encouraged her to reach out to her PCP to refer her to outpatient physical therapy. Addendum entered by Saurav Stephen RN 12/17/24 13:47: spoke to Denny AVILES, he stated pt can be seen an outpatient facility for P.T. It was patient's request for HH. Addendum entered by Saurav Stephen RN 12/17/24 12:43: received call from SHANITA Jacobsen asking what HH agency will be following. unfortunately most HH agencies have declined. Sent out 2nd requests to the HH who have not responded. Reached out to STEFAN Patino to verify if patient can be seen at an outpatient P.T. since HH has not accepted, STEFAN Ocasio took a message and will have Sukumar call me back. Original Note: HH ref sent out, waiting for responses
== END 2024-12-16 10:30 | disposition home health service (06) | DRG 861 ==
LOC: SERX 14:26 → SERHOLD 15:23 → S2SX 17:38 → S2NX 12-15 05:17
PROVIDERS: Admitting Provider Internal Medicine; Emergency Provider Family Medicine; Visit Provider Internal Medicine
DX: R53.1 Weakness (principal); R47.81 Slurred speech; E11.9 Type 2 diabetes mellitus without complications; K21.9 Gastro-esophageal reflux disease without esophagitis; F41.9 Anxiety disorder, unspecified; I50.32 Chronic diastolic (congestive) heart failure; I11.0 Hypertensive heart disease with heart failure; E78.5 Hyperlipidemia, unspecified; E66.2 Morbid (severe) obesity with alveolar hypoventilation; Z68.43 Body mass index [BMI] 50.0-59.9, adult; K61.0 Anal abscess; J44.9 Chronic obstructive pulmonary disease, unspecified; G43.909 Migraine, unspecified, not intractable, without status migrainosus; Z86.718 Personal history of other venous thrombosis and embolism; Z79.4 Long term (current) use of insulin; Z79.890 Hormone replacement therapy; E66.813 Obesity, class 3; G47.33 Obstructive sleep apnea (adult) (pediatric); I25.2 Old myocardial infarction; R29.810 Facial weakness; F32.A Depression, unspecified; I87.8 Other specified disorders of veins; I87.2 Venous insufficiency (chronic) (peripheral); K76.0 Fatty (change of) liver, not elsewhere classified; Z71.6 Tobacco abuse counseling; Z79.82 Long term (current) use of aspirin; Z79.899 Other long term (current) drug therapy; Z88.1 Allergy status to other antibiotic agents; Z90.710 Acquired absence of both cervix and uterus; Z95.5 Presence of coronary angioplasty implant and graft; Z88.0 Allergy status to penicillin; Z88.2 Allergy status to sulfonamides
CPT/HCPCS: 36415; 70450; 70496; 70498; 70553; 80048; 80053; 80061; 80307; 80320; 81001; 83036; 83735; 83880; 84100; 84443; 84484; 85025; 85610; 85730; 87081; 92526; 92610; 93005; 93306; 94664; 96365; 96366; 96375; 97162; 99285; A4649; A9577; J0131; J1815; J2270; J2405; J2470; J3101; J3475; J3480; J3490; J7030; Q9967; A9270; G0480